=== PATIENT | female | born 1945 | race Caucasian/White ===

== ENCOUNTER 2020-08-29 10:36 | Outpatient (NON) | payer MEDICARE, SELFPAY ==
[2020-08-29 23:29] LABS: SARS-CoV-2 RNA PCR Negative
== END 2020-08-29 10:37 ==
PROVIDERS: PCP Family Medicine; Visit Provider Physician Assistant
DX: R68.89 Other general symptoms and signs (principal); Z20.828 Contact with and (suspected) exposure to other viral communicable diseases
CPT/HCPCS: 87635; C9803; U0003

== ENCOUNTER 2020-11-17 08:15 | Outpatient (CLI) | payer MEDICARE, SELFPAY ==
--- NOTE | ~2020-11-17 | XR_ITS ---
EXAMINATION: XR chest 2V DATE: 11/17/2020 08:47 INDICATION: Essential hypertension, shortness of breath TECHNIQUE: AP and lateral views of the chest are obtained. COMPARISON: 01/27/2018 FINDINGS: Cardiomegaly is noted. There is a mild diffuse interstitial pattern. A small left pleural e ffusion is present. There are airspace opacities of the left lung base. No pneumothorax is identified . There is moderate thoracic spondylosis. IMPRESSION: 1. Cardiomegaly with mild pulmonary edema. 2. Small left pleural effusion. 3. Left basilar airspace opacities, consistent with atelectasis versus pneumonia. Reviewed, dictated and finalized at location A. ITUTIONAL AIDE IMPRESSION: 1. Cardiomegaly with mild pulmonary edema. 2. Small left pleural effusion. 3. Left basilar airspace opacities, consistent with atelectasis versus pneumoni a.
[2020-11-17 09:01] LABS: Basophils Absolute Auto 0.1 K/mm3 (0.0-0.1); Basophils Percent Auto 0.9 % (0.2-1.2); Eosinophils Absolute Auto 0.1 K/mm3 (0-0.3); Hematocrit 44.2 % (37.0-47.0); Hemoglobin 14.1 g/dL (12.0-15.0); Immature Granulocyte Absolute 0.04 K/mm3 (0.00-0.031); Immature Granulocyte Percent A 0.4 % (0-0.5); Lymphocytes Absolute Auto 1.01 K/mm3 (0.9-3.2); Lymphocytes Percent Auto 10.3 % (18.3-44.2); Mean Corpuscular HGB Conc 31.9 g/dl (32-36); Mean Corpuscular Hemoglobin 31.5 pg (26-34); Mean Corpuscular Volume 98.9 fl (80-100); Mean Platelet Volume 9.6 fl (7.4-10.4); Monocytes Absolute Auto 0.6 K/mm3 (0.1-0.6); Monocytes Percent Auto 6.5 % (2.6-8.5); Neutrophils Absolute Auto 7.9 K/mm3 (1.3-6.7); Neutrophils Percent Auto 80.9 % (45.5-73.1); Platelet Count Result 461 k/mm3 (150-375); Red Blood Count 4.47 M/mm3 (4.2-5.4); Red Cell Distribution Width 16.8 % (11.5-14.5); White Blood Count 9.8 K/mm3 (4.5-10.0)
[2020-11-17 09:14] LABS: Hemoglobin A1C 7.3 % (<5.7)
[2020-11-17 09:19] LABS: Alanine Aminotransferase 20 U/L (4-35); Albumin Level 3.7 g/dL (3.5-5.1); Alkaline Phosphatase 134 U/L (38-126); Anion Gap 5 mmol/L (8-16); Aspartate Amino Transferase 29 U/L (14-36); Bilirubin,Total 0.8 mg/dL (0.2-1.3); Blood Urea Nitrogen 18 mg/dL (7-17); Calcium 9.5 mg/dL (8.4-10.2); Carbon Dioxide 34 mmol/L (22-30); Chloride 104 mmol/L (98-107); Cholesterol 178 mg/dL (0-200); Estimated Glomerular Filt Rate > 60; Glucose 165 mg/dL (65-105); HDL Direct 65 mg/dL; Sodium 143 mmol/L (137-145); Triglycerides 120 mg/dL (<150)
[2020-11-17 09:45] LABS: LDL Cholesterol Direct 88 mg/dL; NT Pro B Type Natriuretic Pept 4900 PG/ML (5-100)
== END 2020-11-17 08:16 | disposition home or self-care (01) ==
PROVIDERS: PCP Family Medicine; Visit Provider Nurse Practitioner Family
DX: E78.5 Hyperlipidemia, unspecified (principal); R06.02 Shortness of breath; E11.9 Type 2 diabetes mellitus without complications; I48.19 Other persistent atrial fibrillation; N39.0 Urinary tract infection, site not specified; E78.2 Mixed hyperlipidemia; R05 Cough; I50.9 Heart failure, unspecified; Z00.00 Encounter for general adult medical examination without abnormal findings; I11.0 Hypertensive heart disease with heart failure; J90 Pleural effusion, not elsewhere classified; J81.1 Chronic pulmonary edema; M47.814 Spondylosis without myelopathy or radiculopathy, thoracic region
CPT/HCPCS: 36415; 71046; 80053; 80061; 83036; 83880; 84443; 85025; 87086

== ENCOUNTER 2020-11-23 14:34 | Outpatient (CLI) | payer MEDICARE, SELFPAY ==
[2020-11-23 15:38] LABS: Alanine Aminotransferase 20 U/L (4-35); Albumin Level 3.6 g/dL (3.5-5.1); Alkaline Phosphatase 123 U/L (38-126); Anion Gap 5 mmol/L (8-16); Aspartate Amino Transferase 35 U/L (14-36); Bilirubin,Total 0.6 mg/dL (0.2-1.3); Blood Urea Nitrogen 30 mg/dL (7-17); Calcium 9.1 mg/dL (8.4-10.2); Carbon Dioxide 37 mmol/L (22-30); Chloride 101 mmol/L (98-107); Estimated Glomerular Filt Rate 54; Glucose 151 mg/dL (65-105); Potassium 4.3 mmol/L (3.4-5.0); Sodium 143 mmol/L (137-145)
[2020-11-23 15:42] LABS: NT Pro B Type Natriuretic Pept 5520 PG/ML (5-100)
== END 2020-11-23 14:35 | disposition home or self-care (01) ==
PROVIDERS: PCP Family Medicine; Visit Provider Nurse Practitioner Family
DX: E78.5 Hyperlipidemia, unspecified (principal); I10 Essential (primary) hypertension; I50.9 Heart failure, unspecified
CPT/HCPCS: 36415; 80053; 83880

== ENCOUNTER 2020-12-13 16:34 | Outpatient (CLI) | payer MEDICARE, SELFPAY ==
[2020-12-13 17:28] LABS: Hematocrit 42.3 % (37.0-47.0); Hemoglobin 13.3 g/dL (12.0-15.0); Mean Corpuscular HGB Conc 31.4 g/dl (32-36); Mean Corpuscular Hemoglobin 30.6 pg (26-34); Mean Corpuscular Volume 97.5 fl (80-100); Mean Platelet Volume 9.5 fl (7.4-10.4); Platelet Count Result 309 k/mm3 (150-375); Red Blood Count 4.34 M/mm3 (4.2-5.4); Red Cell Distribution Width 15.1 % (11.5-14.5); White Blood Count 9.3 K/mm3 (4.5-10.0)
[2020-12-13 17:49] LABS: Blood Urea Nitrogen 24 mg/dL (7-17); Calcium 9.3 mg/dL (8.4-10.2); Carbon Dioxide > 40 mmol/L (22-30); Chloride 100 mmol/L (98-107); Estimated Glomerular Filt Rate 54; Glucose 104 mg/dL (65-105); Potassium 3.5 mmol/L (3.4-5.0); Sodium 143 mmol/L (137-145)
== END 2020-12-13 16:35 | disposition home or self-care (01) ==
LOC: ANHLAB 16:36
PROVIDERS: PCP Family Medicine; Visit Provider Internal Medicine Cardiovascular Disease
DX: I50.31 Acute diastolic (congestive) heart failure (principal); Z51.81 Encounter for therapeutic drug level monitoring; Z79.01 Long term (current) use of anticoagulants; I48.0 Paroxysmal atrial fibrillation
CPT/HCPCS: 36415; 80048; 85027

== ENCOUNTER 2021-04-05 08:25 | Outpatient (CLI) | payer MEDICARE, SELFPAY ==
[2021-04-05 08:54] LABS: Basophils Absolute Auto 0.1 K/mm3 (0.0-0.1); Basophils Percent Auto 0.8 % (0.2-1.2); Eosinophils Absolute Auto 0.2 K/mm3 (0-0.3); Eosinophils Percent Auto 2.2 % (0-4.4); Hematocrit 43.1 % (37.0-47.0); Hemoglobin 13.6 g/dL (12.0-15.0); Immature Granulocyte Absolute 0.03 K/mm3 (0.00-0.031); Immature Granulocyte Percent A 0.3 % (0-0.5); Lymphocytes Percent Auto 13.5 % (18.3-44.2); Mean Corpuscular HGB Conc 31.6 g/dl (32-36); Mean Corpuscular Hemoglobin 31.3 pg (26-34); Mean Corpuscular Volume 99.3 fl (80-100); Mean Platelet Volume 9.5 fl (7.4-10.4); Monocytes Absolute Auto 0.6 K/mm3 (0.1-0.6); Monocytes Percent Auto 6.4 % (2.6-8.5); Neutrophils Absolute Auto 6.8 K/mm3 (1.3-6.7); Neutrophils Percent Auto 76.8 % (45.5-73.1); Platelet Count Result 337 k/mm3 (150-375); Red Blood Count 4.34 M/mm3 (4.2-5.4); Red Cell Distribution Width 16.2 % (11.5-14.5); White Blood Count 8.9 K/mm3 (4.5-10.0)
[2021-04-05 09:10] LABS: Alanine Aminotransferase 17 U/L (4-35); Albumin Level 3.7 g/dL (3.5-5.1); Alkaline Phosphatase 139 U/L (38-126); Anion Gap 8 mmol/L (8-16); Aspartate Amino Transferase 27 U/L (14-36); Bilirubin,Total 0.9 mg/dL (0.2-1.3); Blood Urea Nitrogen 21 mg/dL (7-17); Calcium 9.9 mg/dL (8.4-10.2); Carbon Dioxide 35 mmol/L (22-30); Chloride 101 mmol/L (98-107); Estimated Glomerular Filt Rate > 60; Glucose 146 mg/dL (65-110); Potassium 3.8 mmol/L (3.4-5.0); Sodium 144 mmol/L (137-145)
[2021-04-05 09:13] LABS: Hemoglobin A1C 7.7 % (<5.7)
== END 2021-04-05 08:26 | disposition home or self-care (01) ==
LOC: ANHLAB 08:27
PROVIDERS: PCP Family Medicine; Visit Provider Nurse Practitioner Family
DX: E78.5 Hyperlipidemia, unspecified (principal); I10 Essential (primary) hypertension; E11.9 Type 2 diabetes mellitus without complications
CPT/HCPCS: 36415; 80053; 83036; 85025

== ENCOUNTER 2021-05-13 19:43 | Emergency (ER) | payer MEDICARE, SELFPAY ==
[2021-05-13 19:44] VITALS: BP 153/67; PULSE 88; RESP 18; TEMP 36.4; O2SAT 98
--- NOTE | 2021-05-13 21:21 | ED.EAR ---
HPI - Ear Problem General Chief complaint: Ear <Siena Gonzalez PA-C - Last Filed: 05/13/21 21:38> Stated complaint: bleeding from left ear <Siena Gonzalez PA-C - Last Filed: 05/13/21 21:38> Time Seen by Provider: 05/13/21 20:15 <Siena Gonzalez PA-C - Last Filed: 05/13/21 21:38> Source: patient <Siena Gonzalez PA-C - Last Filed: 05/13/21 21:38> Mode of arrival: ambulatory <Siena Gonzalez PA-C - Last Filed: 05/13/21 21:38> Limitations: no limitations <Siena Gonzalez PA-C - Last Filed: 05/13/21 21:38> History of Present Illness HPI Narrative: This is a 75 year old female that present to the ER for bleeding from the right ear canal over the last couple of hours. Reports she felt like something popped in her ear then she noted some bleeding. They could not get it to stop at home which prompted her to be seen. She is on Xarelto for Afib. Denies any injuries to the ear. <Siena Gonzalez PA-C - Last Filed: 05/13/21 21:38> Related Data Allergies/adverse reactions: Allergies Allergy/AdvReac Type Severity Reaction Status Date / Time No Known Allergies Allergy Unverified 04/12/21 13:11 <Siena Gonzalez PA-C - Last Filed: 05/13/21 21:38> Review of Systems Review of Systems: CONSTITUTIONAL: Denies fever ENT: Denies otalgia. <Siena Gonzalez PA-C - Last Filed: 05/13/21 21:38> All systems reviewed & are unremarkable except as noted in HPI and below <Siena Gonzalez PA-C - Last Filed: 05/13/21 21:38> [facility] Past Medical History Medical History: Medical History (Updated 05/13/21 @ 21:38 by Siena Gonzalez PA-C) Atrial fibrillation, persistent Cognitive decline Congestive heart failure Essential (primary) hypertension HLD (hyperlipidemia) Memory loss Skin Lesion Type 2 diabetes mellitus without complication, without long-term current use of insulin <Siena Gonzalez PA-C - Last Filed: 05/13/21 21:38> Family History Family History: Family History Mother Hypertension Father Family history of cardiovascular disease <Siena Gonzalez PA-C - Last Filed: 05/13/21 21:38> Social History Social History: Social History Smoking packs per day: 0.5 Smoking cigarettes per day: 10.0 Years smoked: 20 Smoking pack-years: 10.00 Smoking status: Former smoker Tobacco type: cigarettes Second hand tobacco smoke exposure: No Smoking end date: 09/08/88 Alcohol intake: never Substance use: never Substance use type: does not use Gender identity (if verbalized by the patient): Female <Siena Gonzalez PA-C - Last Filed: 05/13/21 21:38> Exam Narrative: GENERAL: Well-appearing, well-nourished, and in no acute distress. HEAD: Normocephalic, atraumatic. EYES: EOMI. ENT: Bilateral TMs pearly zhong, non-bulging. Right external auditory canal with slow oozing from an area of superficial skin breakdown EXTREMITIES: Normal range of motion. No edema. SKIN: Warm, dry, no rash. NEURO: No focal deficits. Alert and oriented x3. PSYCH: Normal mood and affect <Siena Gonzalez PA-C - Last Filed: 05/13/21 21:38> Course WARP DYEING VAT TENDER/PA Physician Supervision For this encounter, I have reviewed the PA documentation, treatment plan and medical decision making: And I have had [id number] time with the patient. On exam the right ear canal has an area of continuous wheezes notes oozing in approximately the 1 o'clock position patient had used a Q-tip just prior to this occurring and is on Xarelto we had discussed with Dr. Quick for ENT recommend Afrin cotton swabs be placed in the patient may be discharged as he is with follow-up as an outpatient to help control the bleeding and recommend against using silver nitrate <DO Mustapha Echeverria Filed: 05/13/21 21:51> Vital Signs Vital signs: Vital Signs Temperature 97.6 F 05/13/21
[2021-05-13] MEDS: SILVER NITRATE (*SP) STICK 8 EACH (21:26)
[2021-05-13] MEDS: SILVER NITRATE (*SP) STICK 2 EACH (21:26)
[2021-05-13] MEDS: OXYMETAZOLINE HCL 0.05% NAS 15 ML BTL (*BKC) 1 SPRAY NASAL (21:26)
[2021-05-13 22:10] VITALS: BP 144/74; PULSE 80; RESP 18; O2SAT 99
== END 2021-05-13 22:12 | disposition home or self-care (01) ==
PROVIDERS: Emergency Provider Emergency Medicine; PCP Family Medicine
DX: H92.21 Otorrhagia, right ear (principal); I48.19 Other persistent atrial fibrillation; Z79.01 Long term (current) use of anticoagulants; I50.9 Heart failure, unspecified; I11.0 Hypertensive heart disease with heart failure; E78.5 Hyperlipidemia, unspecified; E11.9 Type 2 diabetes mellitus without complications; Z87.891 Personal history of nicotine dependence
CPT/HCPCS: 99283; A9270

== ENCOUNTER 2021-11-10 07:29 | Inpatient (IN) | payer MEDICARE, SELFPAY ==
[2021-11-10] VITALS (11 sets, daily range): BP systolic 97–116; BP diastolic 53–66; PULSE 81–118; RESP 16–32; TEMP 35.7–38.6; O2SAT 93–99; BMI 34.3
--- NOTE | ~2021-11-10 | US_ITS ---
EXAMINATION: US venous doppler [facility] DATE: 11/11/2021 10:51 INDICATION: Right lower limb swelling. TECHNIQUE: Grayscale ultrasound images without and with compression and Doppler ultrasound images of the bilateral lower extremity veins were obtained. Reflux testing was performed in a stretcher in rev erse Trendelenburg. COMPARISON: None. FINDINGS: The visualized portions of right common femoral vein, profunda (deep) femoral vein, femoral vein, pop liteal vein, peroneal veins, posterior tibial veins, and greater saphenous vein are patent. Greater s aphenous vein measures 7 mm in the upper thigh, 4 mm in the lower thigh, and 4 mm in the lower leg. S mall saphenous vein measures 5 mm below the knee and 4 mm in the distal lower leg. No reflux. The visualized portions of left common femoral vein, profunda femoral vein, femoral vein, popliteal v ein, peroneal veins, posterior tibial veins, and greater saphenous vein outflow are patent. Greater s aphenous vein measures 8 mm in the upper thigh, 5 mm in the lower thigh, and 3 mm in the lower leg. S mall saphenous vein measures 5 mm below the knee and 2 mm in the distal lower leg. No reflux. IMPRESSION: 1. No deep venous thrombosis. 2. No reflux. Reviewed, dictated and finalized at location A. LEMAKER
--- NOTE | ~2021-11-10 | US_ITS ---
EXAMINATION: US arterial ankle brachial ind DATE: 11/11/2021 10:50 INDICATION: Right lower leg ulcer. TECHNIQUE: Segmental pressures and plethysmographic and Doppler waveforms of the brachial and lower e xtremity arteries were obtained. COMPARISON: None. FINDINGS: Right and left brachial artery pressures of 109 mm Hg and 109 mm Hg, respectively, are concordant (no rmal difference <= 30 mmHg). The right ankle-brachial index (VIVIEN) is 1.45 (normal >= 0.9-1.0). The right great toe-brachial index (TBI) is 1.02 (normal >= 0.65). Arterial Doppler waveforms are at least biphasic at the ankle. The left VIVIEN could not be measured due to inability to cuff occlude the arteries. The left TBI is 1.0 6. Arterial Doppler waveforms are biphasic at the ankle. IMPRESSION: 1. No significant arterial occlusive disease. Reviewed, dictated and finalized at location A. EQUIPMENT INSPECTOR
--- NOTE | ~2021-11-10 | CT_ITS ---
EXAMINATION: CT brain wo con DATE: 11/10/2021 09:04 INDICATION: Confusion. Weakness. TECHNIQUE: Computed tomography (CT) of the head was performed without intravenous contrast. The mA wa s adjusted according to patient size. Iterative reconstruction technique was employed. The dose-lengt h product was 681.00 mGy-cm. COMPARISON: Head CT 02/18/2017 FINDINGS: There are scattered areas of low attenuation in the cerebral white matter. There is a lacun ar infarct in left thalamus. There is an old lacunar infarct in the left lentiform nucleus. There is no intracranial hemorrhage or abnormal mass lesion. The ventricles are normal in size. There is mild mucosal thickening in the ethmoid sinuses. There are likely changes of ocular lens replacement surger ies. The mastoid air cells are normal. IMPRESSION: 1. Age-indeterminate lacunar infarct in left thalamus, new from 02/18/2017. 2. Old lacunar infarct in the left lentiform nucleus. 3. Worsened moderate nonspecific cerebral white matter disease, which likely represents chronic small vessel ischemic disease. Reviewed, dictated and finalized at location A. ARCH LABORATORY TECHNICIAN IMPRESSION: 1. Age-indeterminate lacunar infarct in left thalamus, new from 02/18/2017. 2. Old lacunar infarct in the left lentiform nucleus. 3. Worsened moderate nonspecific cerebral white matter disease, which likely re presents chronic small vessel ischemic disease.
--- NOTE | ~2021-11-10 | XR_ITS ---
EXAMINATION: XR tibia fibula RT 2V DATE: 11/10/2021 08:27 INDICATION: Right lower leg swelling. TECHNIQUE: 2 views of right tibia and fibula were obtained. COMPARISON: None. FINDINGS: Bone alignment is normal. No fracture. There is mild osteoarthritis of the ankle joint and moderate to severe osteoarthritis of the knee joint. IMPRESSION: 1. Polyarticular osteoarthritis. Reviewed, dictated and finalized at location A. RETE BUCKET HOOKER
--- NOTE | ~2021-11-10 | XR_ITS ---
EXAMINATION: XR chest 1V portable DATE: 11/10/2021 08:26 INDICATION: Fever. TECHNIQUE: A single frontal view of the chest was obtained. COMPARISON: Chest 2 views 11/17/2020 FINDINGS: There is a small left pleural effusion. There are airspace opacities at left lung base. No pneumothorax. Cardiomegaly is noted. There are prominent paracardial fat pads. IMPRESSION: 1. Stable small left pleural effusion. 2. Stable airspace opacities in left lung base, consistent with atelectasis versus pneumonia. 3. Cardiomegaly. Reviewed, dictated and finalized at location A. PRACTITIONER IMPRESSION: 1. Stable small left pleural effusion. 2. Stable airspace opacities in left lung base, consistent with atelectasis keegan selene pneumonia. 3. Cardiomegaly.
--- NOTE | 2021-11-10 07:38 | ECG_ITS ---
Measurements Intervals [place] Rate: 94 P: WV: 0 QRS: 83 QRSD: 145 T: 18 QT: 380 QTc: 476 Interpretive Statements ATRIAL FIBRILLATION RIGHT BUNDLE BRANCH BLOCK [120+ ms QRS DURATION, UPRIGHT V1, 40+ ms S IN I/aVL/V4/V5/V6] ST DEVIATION AND MODERATE T-WAVE ABNORMALITY, CONSIDER ANTERIOR ISCHEMIA [-0.1+ mV T- WAVE IN V3/V4] ABNORMAL ECG NO PREVIOUS ECG AVAILABLE FOR COMPARISON Electronically Signed On 11-10-2021 14:30:41 AGENCY SALES MANAGEMENT ASSISTANT by Aung Novak M.D.
--- NOTE | 2021-11-10 07:41 | ED.AMS ---
HPI - Altered Mental Status General Chief Complaint: Altered Mental Status Stated Complaint: Confusion, fever, unable to walk Source: patient, EMS, RN notes reviewed and old records reviewed Mode of arrival: EMS Limitations: dementia History of Present Illness HPI narrative: This is a 76 year old female with history of dementia, hypertension, atrial fibrillation, chronic anticoagulation who presents via EMS for evaluation of confusion and weakness. Patient is unable to state why she is here. EMS reports patient was found oriented to person and she was unable to get out bed. They also found patient had fever of 101 F and she has chronic atrial fibrillation. Patient denies headache, chest pain, shortness of breath, nausea, vomiting, weakness , or cough. She has wound to right lower leg, and nursing staff reports patient scratched her leg in August. She denies any pain to her right leg although there is redness around her wound. She denies any recent falls. Related Data Home Medications Medication Instructions Recorded Confirmed artificial tears solution 2 drp OPHTHALMIC (EYE) DAILY 11/10/21 11/10/21 galantamine 8 mg PO QAM 11/10/21 11/10/21 ofloxacin 1 drp LEFT EYE QID 11/10/21 11/10/21 polymyxin B sulf-trimethoprim 1 drp OPHTHALMIC (EYE) QID 11/10/21 11/10/21 rivaroxaban [Xarelto] 15 mg PO DAILY 11/10/21 11/10/21 valacyclovir [Valtrex] 1,000 mg PO DAILY 11/10/21 11/10/21 Allergies Allergy/AdvReac Type Severity Reaction Status Date / Time No Known Allergies Allergy Unverified 08/16/21 13:00 Review of Systems Review of Systems: All systems reviewed & are unremarkable except as noted in HPI and below Constitutional: Constitutional: Reports chills, Reports fever(s) and Reports weakness Cardiovascular: Cardiovascular: Denies chest pain Respiratory: Respiratory: Denies cough, Denies dyspnea and Denies wheezing Gastrointestinal: Gastrointestinal: Denies abdominal pain, Denies nausea and Denies vomiting [facility] Past Medical History Medical History (Updated 11/10/21 @ 17:46 by Tara Randolph MD) Cognitive decline Congestive heart failure Current use of halfway anticoagulation Essential (primary) hypertension Gout Hyperlipidemia Mild intermittent asthma without complication Persistent atrial fibrillation Type 2 diabetes mellitus without complication, without long-term current use of insulin Surgical History Surgical History (Updated 11/10/21 @ 14:43 by Yessenia Prieto PA-C) History of cataract extraction History of colonoscopy with polypectomy History of gastric bypass History of hysterectomy History of tonsillectomy Family History Family History Mother Hypertension Father Family history of cardiovascular disease Social History Social History Smoking packs per day: 0.5 Smoking cigarettes per day: 10.0 Years smoked: 20 Smoking pack-years: 10.00 Smoking status: Former smoker Tobacco type: cigarettes Second hand tobacco smoke exposure: No Smoking end date: 09/08/88 Alcohol intake: never Substance use: never Substance use type: does not use Gender identity (if verbalized by the patient): Female Spiritual care concerns: No Exam Const: General: alert and ill appearing Other: oriented to person and place, when asked age she stated her date of HENMT: Head: normocephalic and atraumatic Face and sinus: face symmetric Mouth: Yes Normal oral and palatal mucosa present, Yes lip normal, Yes oropharynx normal and Yes moist mucous membranes Eyes: Other: left eye with suture is left with redness and injection from recent surgery Resp: Effort & Inspection: not labored, tachypneic and no use of accessory muscles Auscultation: clear to auscultation bilaterally, no crackles, no rales, no rhonchi and no wheezes Cardio: Rate: tachycardic Rhythm: abn
[2021-11-10 08:02] LABS: Base Excess ABG 4.7 mEq/l (+/-2.0); Fractional Inspired Oxygen 21 %; HCO3 ABG 27.9 mEq/l (22.0-26.0); Oxygen Content ABG 16.9 %vol (16.0-22.0); Oxygen Saturation ABG 90.9 % (95.0-100.0); PO2 ABG 54.4 mmHg (80.0-100.0); PO2 FiO2 Ratio Arterial Blood 2.59 %; Reduced Hemoglobin 11.1 %THb (0-5.0); Total Hemoglobin 13.7 g/dL (12.0-18.0); pH ABG 7.496 (7.350-7.450)
[2021-11-10 08:04] LABS: Device ROOM AIR; Modified Allen's Test Pass; Oxyhemoglobin 87.9 % THb (90.0-100.0); Site Drawn LEFT RADIAL
[2021-11-10 08:12] LABS: Basophils Absolute Auto 0.1 K/mm3 (0.0-0.1); Basophils Percent Auto 0.3 % (0.2-1.2); Eosinophils Absolute Auto 0.1 K/mm3 (0-0.3); Eosinophils Percent Auto 0.5 % (0-4.4); Hematocrit 42.2 % (37.0-47.0); Hemoglobin 13.4 g/dL (12.0-15.0); Immature Granulocyte Absolute 0.11 K/mm3 (0.00-0.031); Immature Granulocyte Percent A 0.6 % (0-0.5); Lymphocytes Absolute Auto 0.42 K/mm3 (0.9-3.2); Lymphocytes Percent Auto 2.4 % (18.3-44.2); Mean Corpuscular HGB Conc 31.8 g/dl (32-36); Mean Corpuscular Hemoglobin 31.4 pg (26-34); Mean Corpuscular Volume 98.8 fl (80-100); Mean Platelet Volume 10.1 fl (7.4-10.4); Monocytes Absolute Auto 0.7 K/mm3 (0.1-0.6); Neutrophils Absolute Auto 16.5 K/mm3 (1.3-6.7); Neutrophils Percent Auto 92.2 % (45.5-73.1); Platelet Count Result 219 k/mm3 (150-375); Red Blood Count 4.27 M/mm3 (4.2-5.4); Red Cell Distribution Width 15.6 % (11.5-14.5); White Blood Count 17.9 K/mm3 (4.5-10.0)
[2021-11-10] MEDS: SODIUM CHLORIDE 0.9% IV 500 ML 999 ML IV CONT (08:15)
[2021-11-10 08:16] LABS: Lactic Acid Reflex 2.8 mmol/L (0.7-2.1)
[2021-11-10 08:22] LABS: Alanine Aminotransferase 19 U/L (4-35); Alkaline Phosphatase 144 U/L (38-126); Anion Gap 11 mmol/L (8-16); Aspartate Amino Transferase 37 U/L (14-36); Bilirubin,Total 1.1 mg/dL (0.2-1.3); Blood Urea Nitrogen 26 mg/dL (7-17); Calcium 9.3 mg/dL (8.4-10.2); Carbon Dioxide 30 mmol/L (22-30); Chloride 94 mmol/L (98-107); Estimated CRCL calculation 46 ml/min; Estimated Glomerular Filt Rate 44; Glucose 214 mg/dL (65-110); Potassium 3.6 mmol/L (3.4-5.0); Sodium 135 mmol/L (137-145)
[2021-11-10 08:23] LABS: INR 2.1; Prothrombin Time 23.2 Seconds (11.1-14.7)
[2021-11-10 08:24] LABS: Partial Thromboplastin Time 36.8 SECONDS (22.3-36.8)
[2021-11-10 08:29] LABS: Troponin I 0.034 ng/mL (0.000-0.034)
[2021-11-10 08:31] LABS: CRP 24.1 mg/dL (<1.0)
[2021-11-10 08:37] LABS: Add Urine Microscopic? YES; Appearance Urine Cloudy (Clear); Bacteria Urine 4+ /hpf; Bilirubin Urine Negative (Negative); Blood Urine 2+ (Negative); Color Urine Yellow (Yellow); Glucose Urine UA Negative (Negative); Ketones Urine Negative (Negative); Leukocyte Esterase Ur 3+ LEU/UL (Negative); Mucus Urine Rare /lpf; Nitrate Urine Positive (Negative); Protein Urine Negative (Negative); Specific Grav Ur 1.012 (1.001-1.035); Urobilinogen Urine Negative mg/dL (<2.0); WBC Clumps Urine Present /HPF; WBC Urine >75 /hpf
[2021-11-10 08:56] LABS: Ammonia < 9 umol/L (9-30)
[2021-11-10 09:14] LABS: SARS-CoV-2 RNA PCR Negative
[2021-11-10] MEDS: SODIUM CHLORIDE 0.9% IV 1,000 ML 999 ML IV CONT (09:19)
--- NOTE | 2021-11-10 11:00 | ADMGEN ---
This patient, Dodie Duong, was admitted to IMU Room 205-01 at 1058. Patient/family oriented to hospital policies and general routines including ID bracelet, bed and alarms, visiting hours, pain management, procedures, bathroom and other care routines, personal items, smoking policy, room service/diet, and visiting hours. Information on how to activate the Rapid Response Team has been discussed. Patient/Family are encouraged to report perceived risks to care and to ask questions if they do not understand what they are told or what they should do.
[2021-11-10 11:05] LABS: Reflex Lactic Acid Yes or No Add Lactic
[2021-11-10 11:39] LABS: Lactic Acid 1.5 mmol/L (0.7-2.1)
[2021-11-10 11:50] LABS: Glucose Point of Care 210 mg/dl (65-105)
--- NOTE | 2021-11-10 13:13 | PHAR ---
HOME MEDICATION VERIFIED BY PHARMACY: BUMANATE 5% EYE DROPS INSTILL ONE DROP IN THE LEFT EYE EVERY 3 HOURS WHILE AWAKE [id number]
--- NOTE | 2021-11-10 13:45 | PM.IMHP ---
H&P: HPI History of Present Illness Date/Time: 11/10/21 13:45 Chief Complaint: Weak and confused. Narrative: This is a 76-year-old female with persistent atrial fibrillation on chronic anticoagulation, congestive heart failure, hypertension, hyperlipidemia, type 2 diabetes mellitus, and cognitive decline who presented to the emergency department today via EMS from home for evaluation of weakness and confusion. She is alert and oriented at the time my evaluation though she seems to suffer from short-term memory loss and as such some of the following is obtained via a review of her electronic medical records. She tells me she has not been feeling well ?for a day or so because of a urinary tract infection.? It is my understanding that she was brought to the ER today because she was so weak that she could not get herself out of bed this morning and she was much more confused than her baseline. With prompting she does admit to dysuria, urinary urgency, and frequency and indeed her urine looks infected. Additionally she has swelling and redness of the right lower leg, surrounding a dry eschar which she states has been present since a fall several months ago. It sounds as though the pain and redness are a newer finding. On arrival to the emergency department she was found to have a temperature of 101.5? and she is being admitted in this setting. Currently she is eating a lunch tray and reports feeling somewhat better. She has no current complaints. Review of Systems Review of Systems: Twelve systems were reviewed. I am not certain how accurate her responses are given her memory loss. She does complain of a mild generalized headache at this time. No neck pain or stiffness. She denies sinus congestion, rhinorrhea, otalgia, and odynophagia. She has had a mild cough which is not productive. No chest pain or pleuritic pain. She denies nausea and vomiting but reports a decrease in appetite. No diarrhea. Except as documented, all other systems were reviewed and are negative. [facility] Past Medical History Medical History (Updated 11/10/21 @ 20:28 by Yessenia Prieto PA-C) Cognitive decline Congestive heart failure Current use of intermediate frame tender anticoagulation Essential (primary) hypertension Gout Hyperlipidemia Mild intermittent asthma without complication Persistent atrial fibrillation Type 2 diabetes mellitus without complication, without long-term current use of insulin Surgical History Surgical History (Updated 11/10/21 @ 14:43 by Yessenia Prieto PA-C) History of cataract extraction History of colonoscopy with polypectomy History of gastric bypass History of hysterectomy History of tonsillectomy Family History Family History Mother Hypertension Father Family history of cardiovascular disease Social History Social History (Updated 11/10/21 @ 20:17 by Yessenia Prieto PA-C) Social History: Surrogate decision maker: Veronica Patel, daughter. Code status: Full code. Smoking packs per day: 0.5 Smoking cigarettes per day: 10.0 Years smoked: 20 Smoking pack-years: 10.00 Smoking status: Former smoker Tobacco type: cigarettes Second hand tobacco smoke exposure: No Smoking end date: 09/08/88 Alcohol intake: never Substance use: never Substance use type: does not use Meds Home Medications and Allergies Home Medications Medication Instructions Recorded Confirmed Type albuterol sulfate 90 mcg/actuation 1 inh INHALATION Q4H PRN #8.5 gm 07/07/20 11/10/21 Rx aerosol inhaler fluticasone furoate 100 1 inh INHALATION DAILY #180 each 12/07/20 11/10/21 Rx mcg-vilanterol 25 mcg/dose inhalation powder torsemide 20 mg tablet 40 mg PO QAM #90 tablet 12/07/20 11/10/21 Rx allopurinol 300 mg tablet 300 mg PO DAILY #90 tablet 05/03/21 11/10/21 Rx atorvastatin 40 mg tablet 40 mg PO DAILY #90 tablet 07/09/21 11/10/21 Rx bupropion HCl 300 mg 24 hr tablet, 300 m
[2021-11-10 16:55] LABS: Glucose Point of Care 237 mg/dl (65-105)
[2021-11-10] MEDS: SODIUM CHLORIDE 0.9% IV 1,000 ML 125 ML IV CONT (19:12)
[2021-11-10] MEDS: ACETAMINOPHEN 325 MG TABLET 650 MG PO (20:09)
[2021-11-10 20:14] LABS: Glucose Point of Care 141 mg/dl (65-105)
[2021-11-10 21:10] LABS: Hemoglobin A1C 7.2 % (<5.7)
[2021-11-10] MEDS: POLYMYXIN/TRIMETHOPRIM OPHTH 10 ML DROPS 1 DROP EACH EYE (21:46)
[2021-11-10] MEDS: OFLOXACIN 0.3% OPHTH SOLN 5 ML BTL 1 DROP LEFT EYE (21:46)
[2021-11-11] VITALS (17 sets, daily range): BP systolic 91–124; BP diastolic 45–76; PULSE 74–122; RESP 18–22; TEMP 35.6–36.7; O2SAT 92–98
[2021-11-11 04:31] LABS: Basophils Absolute Auto 0.1 K/mm3 (0.0-0.1); Basophils Percent Auto 0.4 % (0.2-1.2); Eosinophils Percent Auto 0.2 % (0-4.4); Hematocrit 36.7 % (37.0-47.0); Hemoglobin 11.5 g/dL (12.0-15.0); Immature Granulocyte Absolute 0.05 K/mm3 (0.00-0.031); Immature Granulocyte Percent A 0.4 % (0-0.5); Lymphocytes Absolute Auto 1.13 K/mm3 (0.9-3.2); Lymphocytes Percent Auto 8.7 % (18.3-44.2); Mean Corpuscular HGB Conc 31.3 g/dl (32-36); Mean Corpuscular Hemoglobin 31.1 pg (26-34); Mean Corpuscular Volume 99.2 fl (80-100); Mean Platelet Volume 9.9 fl (7.4-10.4); Monocytes Absolute Auto 1.1 K/mm3 (0.1-0.6); Monocytes Percent Auto 8.5 % (2.6-8.5); Neutrophils Absolute Auto 10.6 K/mm3 (1.3-6.7); Neutrophils Percent Auto 81.8 % (45.5-73.1); Platelet Count Result 170 k/mm3 (150-375); Red Cell Distribution Width 15.5 % (11.5-14.5)
[2021-11-11 04:49] LABS: Alanine Aminotransferase 18 U/L (4-35); Alkaline Phosphatase 108 U/L (38-126); Anion Gap 7 mmol/L (8-16); Aspartate Amino Transferase 43 U/L (14-36); Bilirubin,Total 0.6 mg/dL (0.2-1.3); Blood Urea Nitrogen 27 mg/dL (7-17); Calcium 8.8 mg/dL (8.4-10.2); Carbon Dioxide 28 mmol/L (22-30); Chloride 102 mmol/L (98-107); Creatine Kinase 299 U/L (30-135); Estimated CRCL calculation 50 ml/min; Estimated Glomerular Filt Rate 48; Glucose 150 mg/dL (65-110); Magnesium 1.6 mg/dL (1.6-2.3); Potassium 3.2 mmol/L (3.4-5.0); Sodium 137 mmol/L (137-145)
[2021-11-11 08:19] LABS: Glucose Point of Care 161 mg/dl (65-105)
[2021-11-11] MEDS: ACETAMINOPHEN 325 MG TABLET 650 MG PO (08:48)
[2021-11-11] MEDS: SODIUM CHLORIDE 0.9% IV 1,000 ML 75 ML IV CONT (08:49)
[2021-11-11] MEDS: POLYMYXIN/TRIMETHOPRIM OPHTH 10 ML DROPS 1 DROP EACH EYE ×4 (08:52→21:12)
[2021-11-11] MEDS: OFLOXACIN 0.3% OPHTH SOLN 5 ML BTL 1 DROP LEFT EYE ×4 (08:52→21:16)
[2021-11-11] MEDS: buPROPion HCL XL (24 HR) 150 MG TABCR 300 MG PO (08:53)
[2021-11-11] MEDS: MEMANTINE 10 MG TABLET PO ×2 (08:53→17:03)
[2021-11-11] MEDS: ATORVASTATIN 40 MG TABLET PO (08:53)
[2021-11-11] MEDS: METOPROLOL SUCCINATE EXT REL 50 MG TABCR PO (08:53)
[2021-11-11] MEDS: allopurinoL 300 MG TABLET PO (08:53)
[2021-11-11] MEDS: valACYclovir HCL 500 MG TABLET 1000 MG PO (08:53)
[2021-11-11] MEDS: RIVAROXABAN 15 MG TABLET PO (08:53)
[2021-11-11] MEDS: ARTIFICIAL TEARS OPHTH SOLN 15 ML BOTTLE 2 DROP EACH EYE (08:54)
[2021-11-11] MEDS: FLUTICASONE/SALMETEROL 115-21 MCG INHALER 1 PUFF 2 PUFF INHALATION ×2 (08:56→20:08)
--- NOTE | 2021-11-11 09:46 | PCRCNOTE ---
Nurse omitted 0900 DPI tx, pt not in room when RT entered
--- NOTE | 2021-11-11 10:22 | PM.IMPN ---
Progress Note: A&P Assessment and Plan (1) Sepsis: Code(s): A41.9 - Sepsis, unspecified organism Status: Acute Assessment and Plan: Present on admission and supported by fever, leukocytosis, and lactic acidosis in the setting of infection. SOFA score is 3. Her lactic acid level has normalized with IV fluid rehydration. Blood pressures have been on the low side of normal but are stable. Blood and urine cultures are pending. (2) Cellulitis of right leg: Code(s): L03.115 - Cellulitis of right lower limb Status: Acute Assessment and Plan: Continue imipenem and vancomycin per antibiotic stewardship recommendations. Concern for arterial and venous insufficiency. Patient has had the wound for greater than 3 months without healing. S patient's right lower extremity is swollen and dusky. No pedal pulses were able to be obtained upon exam. RN at bedside to grab Doppler pulses. Ordered ABIs and venous duplex with reflux. Patient may need to consult with vascular intervention and podiatry (3) Urinary tract infection: Code(s): N39.0 - Urinary tract infection, site not specified Status: Acute Assessment and Plan: Currently on broad-spectrum antibiotics as above. Urine culture pending. (4) Delirium: Code(s): R41.0 - Disorientation, unspecified Status: Acute Assessment and Plan: Related to sepsis and infection in a patient with underlying cognitive deficits. She seems to be near her baseline at this time. (5) Abnormal brain CT: Code(s): R90.89 - Other abnormal findings on diagnostic imaging of central nervous system Status: Acute Assessment and Plan: Age indeterminate lacunar infarction noted in the left thalamus which is new from imaging on 02/18/2017. I think her weakness and confusion today are more likely related to sepsis and infection however brain MRI may be prudent. Continue neurologic checks. (6) Generalized weakness: Code(s): R53.1 - Weakness Status: Acute Assessment and Plan: Related to a combination of the above. Should improve with treatment. (7) Acute kidney injury: Code(s): N17.9 - Acute kidney failure, unspecified Status: Acute Assessment and Plan: Avoid nephrotoxic agents. Discontinue IV fluids, patient's renal is back to baseline and she has good oral intake. (8) Type 2 diabetes mellitus with hyperglycemia: Code(s): E11.65 - Type 2 diabetes mellitus with hyperglycemia Status: Acute Assessment and Plan: Initiate sliding scale insulin, Accu-Cheks, and hypoglycemic protocol. Check hemoglobin A1c. (9) Persistent atrial fibrillation: Code(s): I48.19 - Other persistent atrial fibrillation Status: Acute Assessment and Plan: Rate controlled on metoprolol. Continue rivaroxaban for stroke prophylaxis. (10) Congestive heart failure: Qualifiers: Heart failure type: unspecified Heart failure chronicity: acute on chronic Qualified Code(s): I50.9 - Heart failure, unspecified Code(s): I50.9 - Heart failure, unspecified Status: Acute Assessment and Plan: Clinically compensated. Monitor volume status closely and avoid over-hydration. Subjective Date/time seen: 11/11/21 10:22 Patient is alert and oriented this morning. She did not. Be acutely altered. Discussed injury to right lower extremity. Patient reports that the injury took place in August of 2021. Wound is not healed. Ordered an VIVIEN and venous duplex with reflex for further evaluation. Blood cultures came back with Gram-positive cocci x2. Patient was placed on vancomycin and imipenem. IV fluids were discontinued due to history of CHF. Urine cultures pending. Patient denies any acute pain to the right lower extremity. However it is extremely swollen and dusky, unable to palpate pedal pulses. Asked RN to obtain Dopplers of bilateral l
[2021-11-11 12:39] LABS: Glucose Point of Care 171 mg/dl (65-105)
[2021-11-11 15:49] LABS: Glucose Point of Care 124 mg/dl (65-105)
[2021-11-11] MEDS: HYDROcodone/acetaminophen (*CRX) 5-325 MG TABLET 1 TAB PO ×2 (17:02→21:22)
[2021-11-11 19:58] LABS: Glucose Point of Care 197 mg/dl (65-105)
[2021-11-12] VITALS (18 sets, daily range): BP systolic 91–137; BP diastolic 49–80; PULSE 77–105; RESP 16–26; TEMP 35.9–36.9; O2SAT 93–96
[2021-11-12 04:38] LABS: Basophils Percent Auto 0.3 % (0.2-1.2); Eosinophils Absolute Auto 0.1 K/mm3 (0-0.3); Eosinophils Percent Auto 0.6 % (0-4.4); Hematocrit 39.2 % (37.0-47.0); Hemoglobin 11.8 g/dL (12.0-15.0); Immature Granulocyte Absolute 0.05 K/mm3 (0.00-0.031); Immature Granulocyte Percent A 0.4 % (0-0.5); Lymphocytes Absolute Auto 0.76 K/mm3 (0.9-3.2); Lymphocytes Percent Auto 5.8 % (18.3-44.2); Mean Corpuscular HGB Conc 30.1 g/dl (32-36); Mean Corpuscular Hemoglobin 31.1 pg (26-34); Mean Corpuscular Volume 103.2 fl (80-100); Mean Platelet Volume 10.2 fl (7.4-10.4); Monocytes Percent Auto 7.4 % (2.6-8.5); Neutrophils Absolute Auto 11.2 K/mm3 (1.3-6.7); Neutrophils Percent Auto 85.5 % (45.5-73.1); Platelet Count Result 175 k/mm3 (150-375); Red Cell Distribution Width 15.3 % (11.5-14.5); White Blood Count 13.1 K/mm3 (4.5-10.0)
[2021-11-12 04:51] LABS: Alanine Aminotransferase 19 U/L (4-35); Alkaline Phosphatase 119 U/L (38-126); Anion Gap 6 mmol/L (8-16); Aspartate Amino Transferase 47 U/L (14-36); Bilirubin,Total 0.8 mg/dL (0.2-1.3); Blood Urea Nitrogen 21 mg/dL (7-17); Calcium 8.9 mg/dL (8.4-10.2); Carbon Dioxide 26 mmol/L (22-30); Chloride 102 mmol/L (98-107); Estimated CRCL calculation 61 ml/min; Estimated Glomerular Filt Rate > 60; Glucose 191 mg/dL (65-110); Lactic Acid Reflex 1.8 mmol/L (0.7-2.1); Magnesium 0.6 mg/dL (1.6-2.3); Potassium 3.1 mmol/L (3.4-5.0); Sodium 134 mmol/L (137-145)
[2021-11-12] MEDS: FLUTICASONE/SALMETEROL 115-21 MCG INHALER 1 PUFF 2 PUFF INHALATION ×2 (08:21→19:48)
--- NOTE | 2021-11-12 08:30 | P.PNIM_ITS ---
Progress Note: A&P Assessment and Plan (1) Sepsis: Code(s): A41.9 - Sepsis, unspecified organism Status: Acute Assessment and Plan: * Sepsis criteria met on admission with WBC 17.9, Fever >101, Lactic of 2.8, sl ight hypotension 97/63 * Source of infection looks to be bacteremia and UTI * QSofa score 3 * IV hydration x 2L in the ED, continued at 75ml/hr * Blood cultures growing gram positive cocci in chains * Urine culture grew klebsiella pnemoniae * Started IV vancomycin and Primaxin * WBC trending down 13.1 today * Seem to be controlled at this time * Can move patient out of IMU at this time (2) Bacteremia: Code(s): R78.81 - Bacteremia Status: Acute Assessment and Plan: * Blood cultures grew gram positive cocci in clusters * Vancomycin on board * Trend blood cultures * Tailor antibiotics to susceptibilities * Await further culture results (3) Cellulitis of right leg: Code(s): L03.115 - Cellulitis of right lower limb Status: Acute Assessment and Plan: * Notable wound to the right lower leg * Continue imipenem and vancomycin per antibiotic stewardship recommendations * Concern for arterial and venous insufficiency * wound present for greater than 3 months without healing. * ABIs showed no significant arterial occlusive disease * venous duplex, no DVT noted * Patient may need to consult with vascular intervention and podiatry (4) Urinary tract infection: Code(s): N39.0 - Urinary tract infection, site not specified Status: Acute Assessment and Plan: * UA showed cloudy, 2+ blood, positive nitrates, 3+ leukocyte esterase, >75 WBC, WBC clumps present, 4+ bacteria * Urine culture grew Klebsiella pnemoniae * Continue Primaxin * trend output * Trend symptoms (5) Delirium: Code(s): R41.0 - Disorientation, unspecified Status: Acute Assessment and Plan: * Related to sepsis and infection * Reorientation often * She seems to be near her baseline at this time. 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 (7) Generalized weakness: Code(s): R53.1 - Weakness Status: Acute Assessment and Plan: * Related to a combination of the above. Should improve with treatment. (8) Acute kidney injury: Code(s): N17.9 - Acute kidney failure, unspecified Status: Acute Assessment and Plan: * BUN/Cr 26/1.20 * Baseline seems to be around 0.9-1.00 * IV fluids for hydration * Trend labs * Avoid nephrotoxic agents. (9) Type 2 diabetes mellitus with hyperglycemia: Code(s): E11.65 - Type 2 diabetes mellitus with hyperglycemia Status: Acute Assessment and Plan: * Glucose 191 * Initiate sliding scale insulin * Accu-Cheks * hypoglycemic protocol * Hemoglobin A1c 7.2 (10) Persistent atrial fibrillation: Code(s): I48.19 - Other persistent atrial fibrillation Status: Acute Assessment and Plan: * HR in 80 * Rate controlled on metoprolol
--- NOTE | 2021-11-12 08:30 | PM.IMPN ---
Progress Note: A&P Assessment and Plan (1) Sepsis: Code(s): A41.9 - Sepsis, unspecified organism Status: Acute Assessment and Plan: Sepsis criteria met on admission with WBC 17.9, Fever >101, Lactic of 2.8, slight hypotension 97/63 Source of infection looks to be bacteremia and UTI QSofa score 3 IV hydration x 2L in the ED, continued at 75ml/hr Blood cultures growing gram positive cocci in chains Urine culture grew klebsiella pnemoniae Started IV vancomycin and Primaxin WBC trending down 13.1 today Seem to be controlled at this time Can move patient out of IMU at this time (2) Bacteremia: Code(s): R78.81 - Bacteremia Status: Acute Assessment and Plan: Blood cultures grew gram positive cocci in clusters Vancomycin on board Trend blood cultures Tailor antibiotics to susceptibilities Await further culture results (3) Cellulitis of right leg: Code(s): L03.115 - Cellulitis of right lower limb Status: Acute Assessment and Plan: Notable wound to the right lower leg Continue imipenem and vancomycin per antibiotic stewardship recommendations Concern for arterial and venous insufficiency wound present for greater than 3 months without healing. ABIs showed no significant arterial occlusive disease venous duplex, no DVT noted Patient may need to consult with vascular intervention and podiatry (4) Urinary tract infection: Code(s): N39.0 - Urinary tract infection, site not specified Status: Acute Assessment and Plan: UA showed cloudy, 2+ blood, positive nitrates, 3+ leukocyte esterase, >75 WBC, WBC clumps present, 4+ bacteria Urine culture grew Klebsiella pnemoniae Continue Primaxin trend output Trend symptoms (5) Delirium: Code(s): R41.0 - Disorientation, unspecified Status: Acute Assessment and Plan: Related to sepsis and infection Reorientation often She seems to be near her baseline at this time. 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 (7) Generalized weakness: Code(s): R53.1 - Weakness Status: Acute Assessment and Plan: Related to a combination of the above. Should improve with treatment. (8) Acute kidney injury: Code(s): N17.9 - Acute kidney failure, unspecified Status: Acute Assessment and Plan: BUN/Cr 26/1.20 Baseline seems to be around 0.9-1.00 IV fluids for hydration Trend labs Avoid nephrotoxic agents. (9) Type 2 diabetes mellitus with hyperglycemia: Code(s): E11.65 - Type 2 diabetes mellitus with hyperglycemia Status: Acute Assessment and Plan: Glucose 191 Initiate sliding scale insulin Accu-Cheks hypoglycemic protocol Hemoglobin A1c 7.2 (10) Persistent atrial fibrillation: Code(s): I48.19 - Other persistent atrial fibrillation Status: Acute Assessment and Plan: HR in 80 Rate controlled on metoprolol Continue rivaroxaban for stroke prophylaxis. (11) Congestive heart failure: Qualifiers: Heart failure chronicity: acute on chronic Heart failure type: unspecified Qualified Code(s): I50.9 - Heart failure, unspecified Code(s): I50.9 - Heart failure, unspecified Status: Acute Assessment and Plan: EF 70-75% with indeterminate diastolic dysfunction Looks to be compenstated Trend output strict I&O Daily weights avoid over-hydration. Time Spent With Patient Time with patient: Greater than 35 minutes Subjective
[2021-11-12 08:38] LABS: Glucose Point of Care 175 mg/dl (65-105)
[2021-11-12] MEDS: allopurinoL 300 MG TABLET PO (09:43)
[2021-11-12] MEDS: POLYMYXIN/TRIMETHOPRIM OPHTH 10 ML DROPS 1 DROP EACH EYE ×4 (09:43→21:00)
[2021-11-12] MEDS: ATORVASTATIN 40 MG TABLET PO (09:43)
[2021-11-12] MEDS: buPROPion HCL XL (24 HR) 150 MG TABCR 300 MG PO (09:44)
[2021-11-12] MEDS: MEMANTINE 10 MG TABLET PO ×2 (09:46→16:33)
[2021-11-12] MEDS: METOPROLOL SUCCINATE EXT REL 50 MG TABCR PO (09:46)
[2021-11-12] MEDS: RIVAROXABAN 15 MG TABLET PO (09:47)
[2021-11-12] MEDS: OFLOXACIN 0.3% OPHTH SOLN 5 ML BTL 1 DROP LEFT EYE ×4 (09:47→21:00)
[2021-11-12] MEDS: valACYclovir HCL 500 MG TABLET 1000 MG PO (09:48)
[2021-11-12] MEDS: ARTIFICIAL TEARS OPHTH SOLN 15 ML BOTTLE 2 DROP EACH EYE (09:57)
[2021-11-12] MEDS: HYDROcodone/acetaminophen (*CRX) 5-325 MG TABLET 1 TAB PO (10:18)
[2021-11-12] MEDS: SILVERGEL (ELTA) 45 ML 1 APPLIC TOPICAL (10:19)
[2021-11-12] MEDS: INSULIN ASPART (*BKC) 100 UNITS/ML SUB-Q (12:35)
[2021-11-12] MEDS: MORPHINE SULFATE (*CRX) 4 MG/ML INJ 1 MG IV PUSH (12:37)
[2021-11-12 12:46] LABS: Glucose Point of Care 227 mg/dl (65-105)
--- NOTE | 2021-11-12 15:27 | PC.NURSE ---
This patient, Dodie Duong, was received from IMU on 11/12/21 at 1527. Patient/family oriented to unit policies and routines
--- NOTE | 2021-11-12 15:39 | PC.NURSE ---
1500-report called to 2 medical 1520-pt transferred via bed to room 248. pt's at bedside. 1530-pt walked to bathroom with 2 assist. tolerated well.
--- NOTE | 2021-11-12 15:42 | PCDIET ---
1520-pt belongings with pt.
[2021-11-12 16:35] LABS: Glucose Point of Care 132 mg/dl (65-105)
[2021-11-12 20:47] LABS: Glucose Point of Care 149 mg/dl (65-105)
[2021-11-13] VITALS (15 sets, daily range): BP systolic 117–144; BP diastolic 51–83; PULSE 74–91; RESP 16–18; TEMP 36.1–36.6; O2SAT 94–97
--- NOTE | 2021-11-13 | ECHO_ITS ---
Patient Info Name: Dodie Duong Age: 76 years : 1945 Gender: Female Ht: 68 in Wt: 243 lbs BSA: 2.35 m2 HR: 82 bpm BP: 127 / 67 mmHg Heart Rhythm: Atrial Fibrillation Exam Date: 11/13/2021 2:36 PM Exam Location: [facility] Patient Status: Inpatient Admit Date: 11/11/2021 Staff Ordering Physician: Ned Oseguera [facility] Technician: Jf Bernal RDCS, RT Attending Provider: Antolni Zavaleta MD Referring Physician: Oumar ALLEN; Exam Type: CA echo doppler color flow Study Info Indications I50.9 - Heart failure, unspecified Complete two-dimensional, color flow and Doppler transthoracic echocardiogram is performed with contrast to opacify the left ventricle and to improve the deliniation of the left ventricle endocardial borders. Summary 1. Left ventricular chamber dimension is normal. 2. Left ventricular systolic function is normal, estimated at >70%. 3. There is moderately increased left ventricular wall thickness. 4. Left ventricular septal wall motion is abnormal with septal motion related to bundle branch block. 5. Left atrial chamber dimension is severely enlarged. 6. Right atrial chamber dimension is severely enlarged. 7. There is mild tricuspid valve regurgitation. 8. Moderate pulmonary hypertension, estimated pulmonary arterial systolic pressure is 53 mmHg. Recommendations * Consider transesophageal echocardiogram if clinically indicated. Left Ventricle Left ventricular chamber dimension is normal. Left ventricular systolic function is normal, estimated at >70%. There is moderately increased left ventricular wall thickness. Left ventricular septal wall motion is abnormal with septal motion related to bundle branch block. The left ventricular diastolic function is indeterminate. Right Ventricle Right ventricular chamber dimension is normal. Right ventricular systolic function is normal. Left Atria Left atrial chamber dimension is severely enlarged. Right Atria Right atrial chamber dimension is severely enlarged. Aortic Valve The aortic valve is trileaflet. There is no aortic valve stenosis. There is no aortic valve regurgitation. Pulmonic Valve The pulmonic valve is normal. There is trace pulmonic regurgitation. Mitral Valve The mitral valve has normal leaflets. There is mild mitral valve regurgitation. The mitral valve annulus is mildly calcified. Tricuspid Valve The tricuspid valve leaflets are normal. There is mild tricuspid valve regurgitation. Moderate pulmonary hypertension, estimated pulmonary arterial systolic pressure is 53 mmHg. Pericardium/Pleural The pericardium appears normal. There is small pericardial effusion. Inferior Vena Cava Dilated inferior vena cava with >50% collapse upon inspiration consistent with elevated right atrial pressure, 10 mmHg. Aorta The aortic root size at the sinus of Valsalva is normal. There is mild aortic atherosclerosis. Left Ventricular Outflow Tract Name Value Normal LVOT 2D LVOT Diameter 2.0 cm LVOT Doppler LVOT Peak Gradient 1 mmHg LVOT Mean Gradient
[2021-11-13] MEDS: HYDROcodone/acetaminophen (*CRX) 5-325 MG TABLET 1 TAB PO (03:14)
[2021-11-13 07:47] LABS: Glucose Point of Care 158 mg/dl (65-105)
--- NOTE | 2021-11-13 08:15 | PM.IMPN ---
Progress Note: A&P Assessment and Plan (1) Sepsis: Code(s): A41.9 - Sepsis, unspecified organism Status: Acute Assessment and Plan: Sepsis criteria met on admission with WBC 17.9, Fever >101, Lactic of 2.8, slight hypotension 97/63 Source of infection looks to be bacteremia and UTI QSofa score 3 IV hydration x 2L in the ED, continued at 75ml/hr, fluid DC'd at this time Blood cultures growing group B streptococcus Urine culture grew klebsiella pnemoniae IV ceftriaxone started WBC 13.2 today Seem to be controlled at this time (2) Bacteremia: Code(s): R78.81 - Bacteremia Status: Acute Assessment and Plan: Blood cultures grew group B strep Vancomycin on board Looks to be susceptible to ceftriaxone Will continue vancomycin for now Get repeat cultures for line placement (3) Cellulitis of right leg: Code(s): L03.115 - Cellulitis of right lower limb Status: Acute Assessment and Plan: Notable wound to the right lower leg Continue imipenem and vancomycin per antibiotic stewardship recommendations Concern for arterial and venous insufficiency wound present for greater than 3 months without healing. ABIs showed no significant arterial occlusive disease venous duplex, no DVT noted Patient may need to consult with vascular intervention and podiatry Add morphine for break through pain, continue norco (4) Urinary tract infection: Code(s): N39.0 - Urinary tract infection, site not specified Status: Acute Assessment and Plan: UA showed cloudy, 2+ blood, positive nitrates, 3+ leukocyte esterase, >75 WBC, WBC clumps present, 4+ bacteria Urine culture grew Klebsiella pnemoniae Continue Primaxin, consider switching to Ceftriaxone trend output Trend symptoms (5) Delirium: Code(s): R41.0 - Disorientation, unspecified Status: Acute Assessment and Plan: Seems to be resolved Related to sepsis and infection Reorientation often She seems to be near her baseline at this time. 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 PT/OT (7) Generalized weakness: Code(s): R53.1 - Weakness Status: Acute Assessment and Plan: Related to a combination of the above. Should improve with treatment. (8) Acute kidney injury: Code(s): N17.9 - Acute kidney failure, unspecified Status: Acute Assessment and Plan: Resolved BUN/Cr 19/0.90 Baseline seems to be around 0.9-1.00 IV fluids for hydration Trend labs Avoid nephrotoxic agents. (9) Type 2 diabetes mellitus with hyperglycemia: Code(s): E11.65 - Type 2 diabetes mellitus with hyperglycemia Status: Acute Assessment and Plan: Glucose 172 Initiate sliding scale insulin Accu-Cheks hypoglycemic protocol Hemoglobin A1c 7.2 (10) Persistent atrial fibrillation: Code(s): I48.19 - Other persistent atrial fibrillation Status: Acute Assessment and Plan: HR in 80 Rate controlled on metoprolol Continue rivaroxaban for stroke prophylaxis. DC telemonitor, since she has no acute events (11) Congestive heart failure: Qualifiers: Heart failure chronicity: acute on chronic Heart failure type: unspecified Qualified Code(s): I50.9 - Heart failure, unspecified Code(s): I50.9 - Heart failure, unspecified Status: Acute Assessment and Plan: EF 70-75% with indeterminate diastolic dysfunction Looks to be compenstated Trend output strict I
--- NOTE | 2021-11-13 08:15 | P.PNIM_ITS ---
Progress Note: A&P Assessment and Plan (1) Sepsis: Code(s): A41.9 - Sepsis, unspecified organism Status: Acute Assessment and Plan: * Sepsis criteria met on admission with WBC 17.9, Fever >101, Lactic of 2.8, sl ight hypotension 97/63 * Source of infection looks to be bacteremia and UTI * QSofa score 3 * IV hydration x 2L in the ED, continued at 75ml/hr, fluid DC'd at this time * Blood cultures growing group B streptococcus * Urine culture grew klebsiella pnemoniae * IV ceftriaxone started * WBC 13.2 today * Seem to be controlled at this time (2) Bacteremia: Code(s): R78.81 - Bacteremia Status: Acute Assessment and Plan: * Blood cultures grew group B strep * Vancomycin on board * Looks to be susceptible to ceftriaxone * Will continue vancomycin for now * Get repeat cultures for line placement (3) Cellulitis of right leg: Code(s): L03.115 - Cellulitis of right lower limb Status: Acute Assessment and Plan: * Notable wound to the right lower leg * Continue imipenem and vancomycin per antibiotic stewardship recommendations * Concern for arterial and venous insufficiency * wound present for greater than 3 months without healing. * ABIs showed no significant arterial occlusive disease * venous duplex, no DVT noted * Patient may need to consult with vascular intervention and podiatry * Add morphine for break through pain, continue norco (4) Urinary tract infection: Code(s): N39.0 - Urinary tract infection, site not specified Status: Acute Assessment and Plan: * UA showed cloudy, 2+ blood, positive nitrates, 3+ leukocyte esterase, >75 WBC, WBC clumps present, 4+ bacteria * Urine culture grew Klebsiella pnemoniae * Continue Primaxin, consider switching to Ceftriaxone * trend output * Trend symptoms (5) Delirium: Code(s): R41.0 - Disorientation, unspecified Status: Acute Assessment and Plan: * Seems to be resolved * Related to sepsis and infection * Reorientation often * She seems to be near her baseline at this time. 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 * PT/OT (7) Generalized weakness: Code(s): R53.1 - Weakness Status: Acute Assessment and Plan: * Related to a combination of the above. Should improve with treatment. (8) Acute kidney injury: Code(s): N17.9 - Acute kidney failure, unspecified Status: Acute Assessment and Plan: * Resolved * BUN/Cr 19/0.90 * Baseline seems to be around 0.9-1.00 * IV fluids for hydration * Trend labs * Avoid nephrotoxic agents. (9) Type 2 diabetes mellitus with hyperglycemia: Code(s): E11.65 - Type 2 diabetes mellitus with hyperglycemia Status: Acute Assessment and Plan: * Glucose 172 * Initiate sliding scale insulin * Accu-Cheks * hypoglycemic protocol * Hemoglobin A1c 7.2 (10) Persistent atrial fibrillation: Code(s): I48.19 - Other persistent atrial fibrillation
[2021-11-13 08:16] LABS: Basophils Absolute Auto 0.1 K/mm3 (0.0-0.1); Basophils Percent Auto 0.4 % (0.2-1.2); Eosinophils Absolute Auto 0.1 K/mm3 (0-0.3); Eosinophils Percent Auto 0.7 % (0-4.4); Hematocrit 39.4 % (37.0-47.0); Hemoglobin 12.3 g/dL (12.0-15.0); Immature Granulocyte Absolute 0.06 K/mm3 (0.00-0.031); Immature Granulocyte Percent A 0.5 % (0-0.5); Lymphocytes Absolute Auto 0.98 K/mm3 (0.9-3.2); Lymphocytes Percent Auto 7.4 % (18.3-44.2); Mean Corpuscular HGB Conc 31.2 g/dl (32-36); Mean Corpuscular Hemoglobin 31.3 pg (26-34); Mean Corpuscular Volume 100.3 fl (80-100); Mean Platelet Volume 10.4 fl (7.4-10.4); Monocytes Absolute Auto 1.2 K/mm3 (0.1-0.6); Monocytes Percent Auto 8.9 % (2.6-8.5); Neutrophils Absolute Auto 10.9 K/mm3 (1.3-6.7); Neutrophils Percent Auto 82.1 % (45.5-73.1); Platelet Count Result 227 k/mm3 (150-375); Red Blood Count 3.93 M/mm3 (4.2-5.4); Red Cell Distribution Width 15.2 % (11.5-14.5); White Blood Count 13.2 K/mm3 (4.5-10.0)
[2021-11-13] MEDS: FLUTICASONE/SALMETEROL 115-21 MCG INHALER 1 PUFF 2 PUFF INHALATION ×2 (08:20→21:27)
[2021-11-13 08:34] LABS: Alanine Aminotransferase 19 U/L (4-35); Albumin Level 3.6 g/dL (3.5-5.1); Alkaline Phosphatase 151 U/L (38-126); Anion Gap 8 mmol/L (8-16); Aspartate Amino Transferase 32 U/L (14-36); Bilirubin,Total 0.9 mg/dL (0.2-1.3); Blood Urea Nitrogen 19 mg/dL (7-17); Calcium 9.4 mg/dL (8.4-10.2); Carbon Dioxide 28 mmol/L (22-30); Chloride 99 mmol/L (98-107); Estimated CRCL calculation 62 ml/min; Estimated Glomerular Filt Rate > 60; Glucose 172 mg/dL (65-110); Magnesium 2.1 mg/dL (1.6-2.3); Potassium 3.3 mmol/L (3.4-5.0); Sodium 135 mmol/L (137-145)
[2021-11-13 08:52] LABS: Vancomycin Trough 13.8 ug/mL (10.0-20.0)
[2021-11-13] MEDS: buPROPion HCL XL (24 HR) 150 MG TABCR 300 MG PO (08:55)
[2021-11-13] MEDS: allopurinoL 300 MG TABLET PO (08:55)
[2021-11-13] MEDS: ATORVASTATIN 40 MG TABLET PO (08:55)
[2021-11-13] MEDS: METOPROLOL SUCCINATE EXT REL 50 MG TABCR PO (08:56)
[2021-11-13] MEDS: POLYMYXIN/TRIMETHOPRIM OPHTH 10 ML DROPS 1 DROP EACH EYE ×4 (08:56→19:53)
[2021-11-13] MEDS: MEMANTINE 10 MG TABLET PO ×2 (08:56→17:10)
[2021-11-13] MEDS: ARTIFICIAL TEARS OPHTH SOLN 15 ML BOTTLE 2 DROP EACH EYE (08:57)
[2021-11-13] MEDS: OFLOXACIN 0.3% OPHTH SOLN 5 ML BTL 1 DROP LEFT EYE ×4 (08:57→19:53)
[2021-11-13] MEDS: RIVAROXABAN 15 MG TABLET PO (08:57)
[2021-11-13] MEDS: valACYclovir HCL 500 MG TABLET 1000 MG PO (08:57)
[2021-11-13] MEDS: SILVERGEL (ELTA) 45 ML 1 APPLIC TOPICAL (08:57)
--- NOTE | 2021-11-13 09:48 | PCPTNOTE ---
Attempted PT evaluation, Patient getting blood cultures taken. Certified Art Therapist request therapist to return at later time.
[2021-11-13 11:44] LABS: Glucose Point of Care 168 mg/dl (65-105)
[2021-11-13] MEDS: POTASSIUM CHLORIDE 20 MEQ TABLET 40 MEQ PO (11:52)
[2021-11-13] MEDS: cefTRIAXone 2 GM in SODIUM CHLORIDE 0.9% IV 100 ML 200 ML IVPB (11:54)
[2021-11-13] MEDS: PERFLUTREN LIPID MICROSPHERES 1.5 ML VIAL DILUTED TO 10 ML TOTAL VOLUME IV PUSH (15:03)
--- NOTE | 2021-11-13 15:03 | IVDEFINITY ---
Prior to administration of IV Definity the patient was educated on the risks and benefits of the imaging enhancing agent including potential adverse side effects. The patient verbalized understanding. Allergies were verified. No exclusion criteria were identified and at least one of the following inclusion criteria were met: 1) physician request, 2) patient technically difficult to image (per the [place] [employer] guidelines of two or more segments not discernable within the apical view), or 3) questionable left ventricular function. ?
[2021-11-13 16:38] LABS: Glucose Point of Care 115 mg/dl (65-105)
[2021-11-14] VITALS (12 sets, daily range): BP systolic 106–130; BP diastolic 45–82; PULSE 74–88; RESP 18; TEMP 36.7–37; O2SAT 94–96
[2021-11-14 00:55] LABS: Glucose Point of Care 126 mg/dl (65-105)
[2021-11-14 08:04] LABS: Glucose Point of Care 176 mg/dl (65-105)
--- NOTE | 2021-11-14 08:15 | PM.IMPN ---
Progress Note: A&P Assessment and Plan (1) Sepsis: Code(s): A41.9 - Sepsis, unspecified organism Status: Acute Assessment and Plan: Sepsis criteria met on admission with WBC 17.9, Fever >101, Lactic of 2.8, slight hypotension 97/63 Source of infection looks to be bacteremia and UTI QSofa score 3 IV hydration x 2L in the ED, continued at 75ml/hr, fluid DC'd at this time Blood cultures growing group B streptococcus Urine culture grew klebsiella pnemoniae IV ceftriaxone (started 11/13/21) day 2 WBC 10.7 today Seem to be controlled at this time Repeat cultures were drawn and show NGTD Day 5 of antibiotics Wound culture pending for leg wound (2) Bacteremia: Code(s): R78.81 - Bacteremia Status: Acute Assessment and Plan: Blood cultures grew group B strep Antibiotics switched to IV ceftriaxone per susceptibilities repeat cultures shows NGTD Will need a line and a total of 10 days of IV antibiotics (3) Cellulitis of right leg: Code(s): L03.115 - Cellulitis of right lower limb Status: Acute Assessment and Plan: Notable wound to the right lower leg Continue imipenem and vancomycin per antibiotic stewardship recommendations Concern for arterial and venous insufficiency wound present for greater than 3 months without healing. ABIs showed no significant arterial occlusive disease venous duplex, no DVT noted Patient may need to consult with vascular intervention and podiatry Add morphine for break through pain, continue norco Complaints of increased pain Consulted General surgery just for a second opinion, due to the increase of pain wound culture pending (4) Urinary tract infection: Code(s): N39.0 - Urinary tract infection, site not specified Status: Acute Assessment and Plan: UA showed cloudy, 2+ blood, positive nitrates, 3+ leukocyte esterase, >75 WBC, WBC clumps present, 4+ bacteria Urine culture grew Klebsiella pnemoniae Continue Primaxin, switching to Ceftriaxone trend output Trend symptoms (5) Delirium: Code(s): R41.0 - Disorientation, unspecified Status: Acute Assessment and Plan: Seems to wax and wane, probably from the infection, however pain is definitely playing a role. Related to sepsis and infection Reorientation often She seems to be near her baseline at this time. 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 PT/OT (7) Generalized weakness: Code(s): R53.1 - Weakness Status: Acute Assessment and Plan: Related to a combination of the above. Should improve with treatment. (8) Acute kidney injury: Code(s): N17.9 - Acute kidney failure, unspecified Status: Acute Assessment and Plan: Resolved BUN/Cr 19/0.90 Baseline seems to be around 0.9-1.00 IV fluids for hydration Trend labs Avoid nephrotoxic agents. (9) Type 2 diabetes mellitus with hyperglycemia: Code(s): E11.65 - Type 2 diabetes mellitus with hyperglycemia Status: Acute Assessment and Plan: Glucose 207 Initiate sliding scale insulin Accu-Cheks hypoglycemic protocol Hemoglobin A1c 7.2 (10) Persistent atrial fibrillation: Code(s): I48.19 - Other persistent atrial fibrillation Status: Acute Assessment and Plan: HR in 80 Rate controlled on metoprolol Continue rivaroxaban for stroke prophylaxis. DC telemonitor, since she has no acute events (11) Congestive heart failure: Qualifiers: Heart
--- NOTE | 2021-11-14 08:15 | P.PNIM_ITS ---
Progress Note: A&P Assessment and Plan (1) Sepsis: Code(s): A41.9 - Sepsis, unspecified organism Status: Acute Assessment and Plan: * Sepsis criteria met on admission with WBC 17.9, Fever >101, Lactic of 2.8, sl ight hypotension 97/63 * Source of infection looks to be bacteremia and UTI * QSofa score 3 * IV hydration x 2L in the ED, continued at 75ml/hr, fluid DC'd at this time * Blood cultures growing group B streptococcus * Urine culture grew klebsiella pnemoniae * IV ceftriaxone (started 11/13/21) day 2 * WBC 10.7 today * Seem to be controlled at this time * Repeat cultures were drawn and show NGTD * Day 5 of antibiotics * Wound culture pending for leg wound (2) Bacteremia: Code(s): R78.81 - Bacteremia Status: Acute Assessment and Plan: * Blood cultures grew group B strep * Antibiotics switched to IV ceftriaxone per susceptibilities * repeat cultures shows NGTD * Will need a line and a total of 10 days of IV antibiotics (3) Cellulitis of right leg: Code(s): L03.115 - Cellulitis of right lower limb Status: Acute Assessment and Plan: * Notable wound to the right lower leg * Continue imipenem and vancomycin per antibiotic stewardship recommendations * Concern for arterial and venous insufficiency * wound present for greater than 3 months without healing. * ABIs showed no significant arterial occlusive disease * venous duplex, no DVT noted * Patient may need to consult with vascular intervention and podiatry * Add morphine for break through pain, continue norco * Complaints of increased pain * Consulted General surgery just for a second opinion, due to the increase of pain * wound culture pending (4) Urinary tract infection: Code(s): N39.0 - Urinary tract infection, site not specified Status: Acute Assessment and Plan: * UA showed cloudy, 2+ blood, positive nitrates, 3+ leukocyte esterase, >75 WBC, WBC clumps present, 4+ bacteria * Urine culture grew Klebsiella pnemoniae * Continue Primaxin, switching to Ceftriaxone * trend output * Trend symptoms (5) Delirium: Code(s): R41.0 - Disorientation, unspecified Status: Acute Assessment and Plan: * Seems to wax and wane, probably from the infection, however pain is definitely playing a role. * Related to sepsis and infection * Reorientation often * She seems to be near her baseline at this time. 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 * PT/OT (7) Generalized weakness: Code(s): R53.1 - Weakness Status: Acute Assessment and Plan: * Related to a combination of the above. Should improve with treatment. (8) Acute kidney injury: Code(s): N17.9 - Acute kidney failure, unspecified Status: Acute Assessment and Plan: * Resolved * BUN/Cr 19/0.90 * Baseline seems to be around 0.9-1.00 * IV fluids for hydration * Trend labs * Avoid nephrotoxic agents. (9) Type 2 diabetes mellitus with hyperglycemia: Code(s): E11.65 - Type 2 brandon
[2021-11-14 08:23] LABS: Basophils Absolute Auto 0.1 K/mm3 (0.0-0.1); Basophils Percent Auto 0.5 % (0.2-1.2); Eosinophils Absolute Auto 0.1 K/mm3 (0-0.3); Eosinophils Percent Auto 0.8 % (0-4.4); Hematocrit 38.6 % (37.0-47.0); Hemoglobin 11.9 g/dL (12.0-15.0); Immature Granulocyte Absolute 0.06 K/mm3 (0.00-0.031); Immature Granulocyte Percent A 0.6 % (0-0.5); Lymphocytes Absolute Auto 0.78 K/mm3 (0.9-3.2); Lymphocytes Percent Auto 7.3 % (18.3-44.2); Mean Corpuscular HGB Conc 30.8 g/dl (32-36); Mean Corpuscular Volume 100.5 fl (80-100); Mean Platelet Volume 10.1 fl (7.4-10.4); Monocytes Absolute Auto 0.7 K/mm3 (0.1-0.6); Monocytes Percent Auto 6.1 % (2.6-8.5); Neutrophils Percent Auto 84.7 % (45.5-73.1); Platelet Count Result 260 k/mm3 (150-375); Red Blood Count 3.84 M/mm3 (4.2-5.4); Red Cell Distribution Width 15.2 % (11.5-14.5); White Blood Count 10.7 K/mm3 (4.5-10.0)
[2021-11-14] MEDS: buPROPion HCL XL (24 HR) 150 MG TABCR 300 MG PO (08:25)
[2021-11-14] MEDS: METOPROLOL SUCCINATE EXT REL 50 MG TABCR PO (08:25)
[2021-11-14] MEDS: valACYclovir HCL 500 MG TABLET 1000 MG PO (08:25)
[2021-11-14] MEDS: allopurinoL 300 MG TABLET PO (08:25)
[2021-11-14] MEDS: ATORVASTATIN 40 MG TABLET PO (08:25)
[2021-11-14] MEDS: MEMANTINE 10 MG TABLET PO ×2 (08:25→17:16)
[2021-11-14] MEDS: RIVAROXABAN 15 MG TABLET PO (08:25)
[2021-11-14] MEDS: SILVERGEL (ELTA) 45 ML 1 APPLIC TOPICAL (08:26)
[2021-11-14] MEDS: POLYMYXIN/TRIMETHOPRIM OPHTH 10 ML DROPS 1 DROP EACH EYE ×4 (08:26→19:52)
[2021-11-14] MEDS: ARTIFICIAL TEARS OPHTH SOLN 15 ML BOTTLE 2 DROP EACH EYE (08:26)
[2021-11-14] MEDS: OFLOXACIN 0.3% OPHTH SOLN 5 ML BTL 1 DROP LEFT EYE ×4 (08:26→19:51)
[2021-11-14 09:04] LABS: Alanine Aminotransferase 19 U/L (4-35); Albumin Level 3.3 g/dL (3.5-5.1); Alkaline Phosphatase 142 U/L (38-126); Anion Gap 6 mmol/L (8-16); Aspartate Amino Transferase 38 U/L (14-36); Bilirubin,Total 0.6 mg/dL (0.2-1.3); Blood Urea Nitrogen 19 mg/dL (7-17); Calcium 9.4 mg/dL (8.4-10.2); Carbon Dioxide 29 mmol/L (22-30); Chloride 102 mmol/L (98-107); Estimated CRCL calculation 63 ml/min; Estimated Glomerular Filt Rate > 60; Glucose 201 mg/dL (65-110); Potassium 3.7 mmol/L (3.4-5.0); Sodium 137 mmol/L (137-145)
[2021-11-14] MEDS: FLUTICASONE/SALMETEROL 115-21 MCG INHALER 1 PUFF 2 PUFF INHALATION ×2 (09:22→20:06)
[2021-11-14] MEDS: cefTRIAXone 2 GM in SODIUM CHLORIDE 0.9% IV 100 ML 200 ML IVPB (12:15)
[2021-11-14 12:22] LABS: Glucose Point of Care 175 mg/dl (65-105)
[2021-11-14] MEDS: HYDROcodone/acetaminophen (*CRX) 5-325 MG TABLET 1 TAB PO (14:51)
[2021-11-14 16:35] LABS: Glucose Point of Care 123 mg/dl (65-105)
[2021-11-14] MEDS: ACETAMINOPHEN 325 MG TABLET 650 MG PO (20:22)
[2021-11-14 20:32] LABS: Glucose Point of Care 153 mg/dl (65-105)
[2021-11-15 05:29] LABS: Basophils Absolute Auto 0.1 K/mm3 (0.0-0.1); Basophils Percent Auto 0.7 % (0.2-1.2); Eosinophils Absolute Auto 0.2 K/mm3 (0-0.3); Eosinophils Percent Auto 1.6 % (0-4.4); Hematocrit 35.3 % (37.0-47.0); Hemoglobin 11.4 g/dL (12.0-15.0); Immature Granulocyte Absolute 0.08 K/mm3 (0.00-0.031); Immature Granulocyte Percent A 0.7 % (0-0.5); Lymphocytes Percent Auto 10.3 % (18.3-44.2); Mean Corpuscular HGB Conc 32.3 g/dl (32-36); Mean Corpuscular Hemoglobin 30.9 pg (26-34); Mean Corpuscular Volume 95.7 fl (80-100); Mean Platelet Volume 10.2 fl (7.4-10.4); Monocytes Absolute Auto 0.7 K/mm3 (0.1-0.6); Monocytes Percent Auto 6.8 % (2.6-8.5); Neutrophils Absolute Auto 8.5 K/mm3 (1.3-6.7); Neutrophils Percent Auto 79.9 % (45.5-73.1); Platelet Count Result 293 k/mm3 (150-375); Red Blood Count 3.69 M/mm3 (4.2-5.4); White Blood Count 10.7 K/mm3 (4.5-10.0)
[2021-11-15 05:55] LABS: Alanine Aminotransferase 18 U/L (4-35); Albumin Level 3.1 g/dL (3.5-5.1); Alkaline Phosphatase 131 U/L (38-126); Anion Gap 5 mmol/L (8-16); Aspartate Amino Transferase 32 U/L (14-36); Bilirubin,Total 0.4 mg/dL (0.2-1.3); Blood Urea Nitrogen 19 mg/dL (7-17); Calcium 9.1 mg/dL (8.4-10.2); Carbon Dioxide 32 mmol/L (22-30); Chloride 102 mmol/L (98-107); Estimated CRCL calculation 52 ml/min; Estimated Glomerular Filt Rate 48; Glucose 148 mg/dL (65-110); Magnesium 2.1 mg/dL (1.6-2.3); Potassium 3.7 mmol/L (3.4-5.0); Sodium 139 mmol/L (137-145)
[2021-11-15 06:01] VITALS: BP 125/52; PULSE 95; RESP 18; TEMP 36.6; O2SAT 97
[2021-11-15 08:00] VITALS: BP 125/52; PULSE 95; RESP 18; TEMP 36.6; O2SAT 97
[2021-11-15 08:04] LABS: Glucose Point of Care 154 mg/dl (65-105)
[2021-11-15] MEDS: FLUTICASONE/SALMETEROL 115-21 MCG INHALER 1 PUFF 2 PUFF INHALATION ×2 (08:31→20:34)
[2021-11-15] MEDS: MEMANTINE 10 MG TABLET PO ×2 (09:15→17:35)
[2021-11-15] MEDS: allopurinoL 300 MG TABLET PO (09:15)
[2021-11-15] MEDS: METOPROLOL SUCCINATE EXT REL 50 MG TABCR PO (09:15)
[2021-11-15] MEDS: valACYclovir HCL 500 MG TABLET 1000 MG PO (09:15)
[2021-11-15] MEDS: SILVERGEL (ELTA) 45 ML 1 APPLIC TOPICAL (09:15)
[2021-11-15] MEDS: POLYMYXIN/TRIMETHOPRIM OPHTH 10 ML DROPS 1 DROP EACH EYE ×4 (09:16→20:03)
[2021-11-15] MEDS: RIVAROXABAN 15 MG TABLET PO (09:16)
[2021-11-15] MEDS: OFLOXACIN 0.3% OPHTH SOLN 5 ML BTL 1 DROP LEFT EYE ×4 (09:16→20:03)
[2021-11-15] MEDS: ARTIFICIAL TEARS OPHTH SOLN 15 ML BOTTLE 2 DROP EACH EYE (09:16)
[2021-11-15] MEDS: HYDROcodone/acetaminophen (*CRX) 5-325 MG TABLET 1 TAB PO (09:26)
[2021-11-15 09:31] VITALS: PULSE 78; O2SAT 96
[2021-11-15] MEDS: buPROPion HCL XL (24 HR) 150 MG TABCR 300 MG PO (10:00)
[2021-11-15] MEDS: ATORVASTATIN 40 MG TABLET PO (10:00)
--- NOTE | 2021-11-15 10:15 | P.PNIM_ITS ---
Progress Note: A&P Assessment and Plan (1) Sepsis: Code(s): A41.9 - Sepsis, unspecified organism Status: Acute Assessment and Plan: * Sepsis criteria met on admission with WBC 17.9, Fever >101, Lactic of 2.8, sl ight hypotension 97/63 * Source of infection looks to be bacteremia and UTI * QSofa score 3 * IV hydration x 2L in the ED, continued at 75ml/hr, fluid DC'd at this time * Blood cultures growing group B streptococcus * Urine culture grew klebsiella pnemoniae * IV ceftriaxone (started 11/13/21) day 3 * WBC 10.7 today * Seem to be controlled at this time * Repeat cultures were drawn and show NGTD * Day 6 of antibiotics * Wound culture for leg wound does not indicate any growth (2) Bacteremia: Code(s): R78.81 - Bacteremia Status: Acute Assessment and Plan: * Blood cultures grew group B strep * Antibiotics switched to IV ceftriaxone per susceptibilities * repeat cultures shows NGTD * Will need a line and a total of 10 days of IV antibiotics (3) Cellulitis of right leg: Code(s): L03.115 - Cellulitis of right lower limb Status: Acute Assessment and Plan: * Notable wound to the right lower leg * Continue imipenem and vancomycin per antibiotic stewardship recommendations * Concern for arterial and venous insufficiency * wound present for greater than 3 months without healing. * ABIs showed no significant arterial occlusive disease * venous duplex, no DVT noted * Patient may need to consult with vascular intervention and podiatry * Add morphine for break through pain, continue norco * Complaints of increased pain * Consulted General surgery just for a second opinion, due to the increase of pain * wound culture pending (4) Urinary tract infection: Code(s): N39.0 - Urinary tract infection, site not specified Status: Acute Assessment and Plan: * UA showed cloudy, 2+ blood, positive nitrates, 3+ leukocyte esterase, >75 WBC, WBC clumps present, 4+ bacteria * Urine culture grew Klebsiella pnemoniae * Continue Primaxin, switching to Ceftriaxone * trend output * Trend symptoms (5) Delirium: Code(s): R41.0 - Disorientation, unspecified Status: Acute Assessment and Plan: * Seems to wax and wane, probably from the infection, however pain is definitely playing a role. * Related to sepsis and infection * Reorientation often * She seems to be near her baseline at this time. 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 * PT/OT (7) Generalized weakness: Code(s): R53.1 - Weakness Status: Acute Assessment and Plan: * Related to a combination of the above. Should improve with treatment. (8) Acute kidney injury: Code(s): N17.9 - Acute kidney failure, unspecified Status: Acute Assessment and Plan: * Resolved * BUN/Cr 19/1.10 * Baseline seems to be around 0.9-1.00 * IV fluids for hydration * Trend labs * Avoid nephrotoxic agents. (9) Type 2 diabetes mellitus with hyperglycemia: Code(s):
--- NOTE | 2021-11-15 10:15 | PM.IMPN ---
Progress Note: A&P Assessment and Plan (1) Sepsis: Code(s): A41.9 - Sepsis, unspecified organism Status: Acute Assessment and Plan: Sepsis criteria met on admission with WBC 17.9, Fever >101, Lactic of 2.8, slight hypotension 97/63 Source of infection looks to be bacteremia and UTI QSofa score 3 IV hydration x 2L in the ED, continued at 75ml/hr, fluid DC'd at this time Blood cultures growing group B streptococcus Urine culture grew klebsiella pnemoniae IV ceftriaxone (started 11/13/21) day 3 WBC 10.7 today Seem to be controlled at this time Repeat cultures were drawn and show NGTD Day 6 of antibiotics Wound culture for leg wound does not indicate any growth (2) Bacteremia: Code(s): R78.81 - Bacteremia Status: Acute Assessment and Plan: Blood cultures grew group B strep Antibiotics switched to IV ceftriaxone per susceptibilities repeat cultures shows NGTD Will need a line and a total of 10 days of IV antibiotics (3) Cellulitis of right leg: Code(s): L03.115 - Cellulitis of right lower limb Status: Acute Assessment and Plan: Notable wound to the right lower leg Continue imipenem and vancomycin per antibiotic stewardship recommendations Concern for arterial and venous insufficiency wound present for greater than 3 months without healing. ABIs showed no significant arterial occlusive disease venous duplex, no DVT noted Patient may need to consult with vascular intervention and podiatry Add morphine for break through pain, continue norco Complaints of increased pain Consulted General surgery just for a second opinion, due to the increase of pain wound culture pending (4) Urinary tract infection: Code(s): N39.0 - Urinary tract infection, site not specified Status: Acute Assessment and Plan: UA showed cloudy, 2+ blood, positive nitrates, 3+ leukocyte esterase, >75 WBC, WBC clumps present, 4+ bacteria Urine culture grew Klebsiella pnemoniae Continue Primaxin, switching to Ceftriaxone trend output Trend symptoms (5) Delirium: Code(s): R41.0 - Disorientation, unspecified Status: Acute Assessment and Plan: Seems to wax and wane, probably from the infection, however pain is definitely playing a role. Related to sepsis and infection Reorientation often She seems to be near her baseline at this time. 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 PT/OT (7) Generalized weakness: Code(s): R53.1 - Weakness Status: Acute Assessment and Plan: Related to a combination of the above. Should improve with treatment. (8) Acute kidney injury: Code(s): N17.9 - Acute kidney failure, unspecified Status: Acute Assessment and Plan: Resolved BUN/Cr /.10 Baseline seems to be around 0.9-1.00 IV fluids for hydration Trend labs Avoid nephrotoxic agents. (9) Type 2 diabetes mellitus with hyperglycemia: Code(s): E11.65 - Type 2 diabetes mellitus with hyperglycemia Status: Acute Assessment and Plan: Glucose 148 Initiate sliding scale insulin Accu-Cheks hypoglycemic protocol Hemoglobin A1c 7.2 (10) Persistent atrial fibrillation: Code(s): I48.19 - Other persistent atrial fibrillation Status: Acute Assessment and Plan: HR in 80 Rate controlled on metoprolol Continue rivaroxaban for stroke prophylaxis. DC telemonitor, since she has no acute events (11) Congestive heart failure: Qualifi
--- NOTE | 2021-11-15 10:41 | PCOTNOTE ---
Attempted to see patient this am, however patient refused. Pt reported being too tired at this time stating, Not now.
--- NOTE | 2021-11-15 11:10 | PCOTNOTE ---
Attempted for a second time this am, however patient refused once again. Pt's just arrived for visit. brought patient some belongings and encouraged patient to participate in ADLs, however patient stated, I got it sweetie. I appreciate you trying though. Pt turned to and stated, She keeps trying to get me back at what I was doing before.
[2021-11-15 11:29] LABS: Glucose Point of Care 110 mg/dl (65-105)
[2021-11-15] MEDS: cefTRIAXone 2 GM in SODIUM CHLORIDE 0.9% IV 100 ML IVPB (12:34)
[2021-11-15 16:58] LABS: Glucose Point of Care 256 mg/dl (65-105)
[2021-11-15 16:58] LABS: Glucose Point of Care 252 mg/dl (65-105)
[2021-11-15] MEDS: INSULIN ASPART (*BKC) 100 UNITS/ML SUB-Q (17:27)
[2021-11-15 20:00] VITALS: BP 127/59; PULSE 78; PULSE 81; RESP 20; TEMP 35.8; O2SAT 94; O2SAT 99
[2021-11-15 20:13] VITALS: BP 115/59; BP 98/55; PULSE 78; PULSE 82; RESP 20; TEMP 35.8; O2SAT 88; O2SAT 94
[2021-11-15 20:30] VITALS: PULSE 81; O2SAT 94
[2021-11-15 20:34] LABS: Glucose Point of Care 114 mg/dl (65-105)
[2021-11-16 04:11] VITALS: BP 125/67; PULSE 93; RESP 20; TEMP 36; O2SAT 93
[2021-11-16 05:27] LABS: Basophils Absolute Auto 0.1 K/mm3 (0.0-0.1); Basophils Percent Auto 0.7 % (0.2-1.2); Eosinophils Absolute Auto 0.2 K/mm3 (0-0.3); Eosinophils Percent Auto 1.7 % (0-4.4); Hematocrit 35.5 % (37.0-47.0); Hemoglobin 10.9 g/dL (12.0-15.0); Immature Granulocyte Absolute 0.06 K/mm3 (0.00-0.031); Immature Granulocyte Percent A 0.6 % (0-0.5); Lymphocytes Absolute Auto 1.46 K/mm3 (0.9-3.2); Lymphocytes Percent Auto 14.1 % (18.3-44.2); Mean Corpuscular HGB Conc 30.7 g/dl (32-36); Mean Corpuscular Hemoglobin 31.1 pg (26-34); Mean Corpuscular Volume 101.1 fl (80-100); Mean Platelet Volume 9.6 fl (7.4-10.4); Monocytes Absolute Auto 0.8 K/mm3 (0.1-0.6); Monocytes Percent Auto 7.7 % (2.6-8.5); Neutrophils Absolute Auto 7.8 K/mm3 (1.3-6.7); Neutrophils Percent Auto 75.2 % (45.5-73.1); Platelet Count Result 306 k/mm3 (150-375); Red Blood Count 3.51 M/mm3 (4.2-5.4); Red Cell Distribution Width 15.1 % (11.5-14.5); White Blood Count 10.4 K/mm3 (4.5-10.0)
[2021-11-16 05:44] LABS: Alanine Aminotransferase 18 U/L (4-35); Alkaline Phosphatase 127 U/L (38-126); Anion Gap 6 mmol/L (8-16); Aspartate Amino Transferase 29 U/L (14-36); Bilirubin,Total 0.5 mg/dL (0.2-1.3); Blood Urea Nitrogen 19 mg/dL (7-17); Calcium 8.9 mg/dL (8.4-10.2); Carbon Dioxide 28 mmol/L (22-30); Chloride 105 mmol/L (98-107); Estimated CRCL calculation 55 ml/min; Estimated Glomerular Filt Rate 54; Glucose 135 mg/dL (65-110); Magnesium 2.1 mg/dL (1.6-2.3); Potassium 3.9 mmol/L (3.4-5.0); Sodium 139 mmol/L (137-145)
[2021-11-16 07:43] LABS: Glucose Point of Care 149 mg/dl (65-105)
[2021-11-16] MEDS: FLUTICASONE/SALMETEROL 115-21 MCG INHALER 1 PUFF 2 PUFF INHALATION (08:25)
[2021-11-16] MEDS: buPROPion HCL XL (24 HR) 150 MG TABCR 300 MG PO (09:17)
[2021-11-16] MEDS: RIVAROXABAN 15 MG TABLET PO (09:17)
[2021-11-16] MEDS: valACYclovir HCL 500 MG TABLET 1000 MG PO (09:17)
[2021-11-16] MEDS: ARTIFICIAL TEARS OPHTH SOLN 15 ML BOTTLE 2 DROP EACH EYE (09:18)
[2021-11-16] MEDS: allopurinoL 300 MG TABLET PO (09:18)
[2021-11-16] MEDS: MEMANTINE 10 MG TABLET PO (09:18)
[2021-11-16] MEDS: ATORVASTATIN 40 MG TABLET PO (09:18)
[2021-11-16] MEDS: SILVERGEL (ELTA) 45 ML 1 APPLIC TOPICAL (09:19)
[2021-11-16] MEDS: OFLOXACIN 0.3% OPHTH SOLN 5 ML BTL 1 DROP LEFT EYE ×2 (09:23→13:15)
[2021-11-16] MEDS: POLYMYXIN/TRIMETHOPRIM OPHTH 10 ML DROPS 1 DROP EACH EYE ×2 (09:23→13:15)
[2021-11-16] MEDS: HYDROcodone/acetaminophen (*CRX) 5-325 MG TABLET 1 TAB PO (09:35)
[2021-11-16 09:56] VITALS: PULSE 82
[2021-11-16] MEDS: METOPROLOL SUCCINATE EXT REL 50 MG TABCR PO (09:56)
[2021-11-16 11:14] LABS: Glucose Point of Care 112 mg/dl (65-105)
[2021-11-16] MEDS: cefTRIAXone 2 GM in SODIUM CHLORIDE 0.9% IV 100 ML IVPB (11:57)
--- NOTE | 2021-11-16 12:00 | PM.DS ---
DS: Admitting Diagnosis Discharge Date 11/16/21 12:00 Admitting Diagnosis Bacteremia/UTI/Sepsis/Cellulitis DS: Discharge Diagnosis Discharge Diagnosis (1) Sepsis: Code(s): A41.9 - Sepsis, unspecified organism Status: Acute Assessment and Plan: Sepsis criteria met on admission with WBC 17.9, Fever >101, Lactic of 2.8, slight hypotension 97/63 Source of infection looks to be bacteremia and UTI QSofa score 3 IV hydration x 2L in the ED, continued at 75ml/hr, fluid DC'd at this time Blood cultures growing group B streptococcus Urine culture grew klebsiella pnemoniae IV ceftriaxone (started 11/13/21) day 4, change to PO antibiotics Levaquin 750 Daily WBC 10.7 today Seem to be controlled at this time Repeat cultures were drawn and show NGTD Day 7 of antibiotics Wound culture for leg wound does not indicate any growth (2) Bacteremia: Code(s): R78.81 - Bacteremia Status: Acute Assessment and Plan: Blood cultures grew group B strep Antibiotics switched to IV ceftriaxone per susceptibilities repeat cultures shows NGTD 10 days total antibiotics, change to PO levaquin for discharge (3) Cellulitis of right leg: Code(s): L03.115 - Cellulitis of right lower limb Status: Acute Assessment and Plan: Notable wound to the right lower leg Continue imipenem and vancomycin per antibiotic stewardship recommendations Concern for arterial and venous insufficiency wound present for greater than 3 months without healing. ABIs showed no significant arterial occlusive disease venous duplex, no DVT noted Patient may need to consult with vascular intervention and podiatry Add morphine for break through pain, continue norco Complaints of increased pain Consulted General surgery just for a second opinion, due to the increase of pain wound culture shows no growth (4) Urinary tract infection: Code(s): N39.0 - Urinary tract infection, site not specified Status: Acute Assessment and Plan: UA showed cloudy, 2+ blood, positive nitrates, 3+ leukocyte esterase, >75 WBC, WBC clumps present, 4+ bacteria Urine culture grew Klebsiella pnemoniae Continue Primaxin, switching to Ceftriaxone, change to PO Levaquin trend output Trend symptoms (5) Delirium: Code(s): R41.0 - Disorientation, unspecified Status: Acute Assessment and Plan: Seems to wax and wane, probably from the infection, however pain is definitely playing a role. Related to sepsis and infection Reorientation often She seems to be near her baseline at this time. 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 PT/OT (7) Generalized weakness: Code(s): R53.1 - Weakness Status: Acute Assessment and Plan: Related to a combination of the above. Should improve with treatment. (8) Acute kidney injury: Code(s): N17.9 - Acute kidney failure, unspecified Status: Acute Assessment and Plan: Resolved BUN/Cr 19/1.00 Baseline seems to be around 0.9-1.00 IV fluids for hydration Trend labs Avoid nephrotoxic agents. (9) Type 2 diabetes mellitus with hyperglycemia: Code(s): E11.65 - Type 2 diabetes mellitus with hyperglycemia Status: Acute Assessment and Plan: Glucose 135 Initiate sliding scale insulin Accu-Cheks hypoglycemic protocol Hemoglobin A1c 7.2 (10) Persistent atrial fibrillation: Code(s): I48.19 - Other persistent atrial fibrillation Status: Acute Assessment and Plan
--- NOTE | 2021-11-16 12:00 | P.DS_ITS ---
DS: Admitting Diagnosis Discharge Date 11/16/21 12:00 Admitting Diagnosis Bacteremia/UTI/Sepsis/Cellulitis DS: Discharge Diagnosis Discharge Diagnosis (1) Sepsis: Code(s): A41.9 - Sepsis, unspecified organism Status: Acute Assessment and Plan: * Sepsis criteria met on admission with WBC 17.9, Fever >101, Lactic of 2.8, slight hypotension 97/63 * Source of infection looks to be bacteremia and UTI * QSofa score 3 * IV hydration x 2L in the ED, continued at 75ml/hr, fluid DC'd at this time * Blood cultures growing group B streptococcus * Urine culture grew klebsiella pnemoniae * IV ceftriaxone (started 11/13/21) day 4, change to PO antibiotics Levaquin 750 Daily * WBC 10.7 today * Seem to be controlled at this time * Repeat cultures were drawn and show NGTD * Day 7 of antibiotics * Wound culture for leg wound does not indicate any growth (2) Bacteremia: Code(s): R78.81 - Bacteremia Status: Acute Assessment and Plan: * Blood cultures grew group B strep * Antibiotics switched to IV ceftriaxone per susceptibilities * repeat cultures shows NGTD * 10 days total antibiotics, change to PO levaquin for discharge (3) Cellulitis of right leg: Code(s): L03.115 - Cellulitis of right lower limb Status: Acute Assessment and Plan: * Notable wound to the right lower leg * Continue imipenem and vancomycin per antibiotic stewardship recommendations * Concern for arterial and venous insufficiency * wound present for greater than 3 months without healing. * ABIs showed no significant arterial occlusive disease * venous duplex, no DVT noted * Patient may need to consult with vascular intervention and podiatry * Add morphine for break through pain, continue norco * Complaints of increased pain * Consulted General surgery just for a second opinion, due to the increase of pain * wound culture shows no growth (4) Urinary tract infection: Code(s): N39.0 - Urinary tract infection, site not specified Status: Acute Assessment and Plan: * UA showed cloudy, 2+ blood, positive nitrates, 3+ leukocyte esterase, >75 WBC, WBC clumps present, 4+ bacteria * Urine culture grew Klebsiella pnemoniae * Continue Primaxin, switching to Ceftriaxone, change to PO Levaquin * trend output * Trend symptoms (5) Delirium: Code(s): R41.0 - Disorientation, unspecified Status: Acute Assessment and Plan: * Seems to wax and wane, probably from the infection, however pain is definitely playing a role. * Related to sepsis and infection * Reorientation often * She seems to be near her baseline at this time. 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 * PT/OT (7) Generalized weakness: Code(s): R53.1 - Weakness Status: Acute Assessment and Plan: * Related to a combination of the above. Should improve with treatment. (8) Acute kidney injury: Code(s): N17.9 - Acute kidney failure, unspecified Status: Acute Assessment and Plan: * Resolved * BUN/Cr 19/1.00 * Base
[2021-11-16 13:12] LABS: EDCOVIDSCREEN Negative (Negative)
== END 2021-11-16 15:06 | DRG 872 ==
LOC: ANHED 10:00 → ANHIMU 10:56 → ANH2MED 11-12 15:21
PROVIDERS: Nurse Practitioner Family; Physician Assistant; Admitting Provider Family Medicine; Emergency Provider General Practice; PCP Family Medicine; Visit Provider Nurse Practitioner
DX: A41.9 Sepsis, unspecified organism (principal); I48.19 Other persistent atrial fibrillation; L03.115 Cellulitis of right lower limb; N39.0 Urinary tract infection, site not specified; N17.9 Acute kidney failure, unspecified; I50.32 Chronic diastolic (congestive) heart failure; R65.20 Severe sepsis without septic shock; B96.1 Klebsiella pneumoniae [K. pneumoniae] as the cause of diseases classified elsewhere; B95.1 Streptococcus, group B, as the cause of diseases classified elsewhere; Z20.822 Contact with and (suspected) exposure to COVID-19; I11.0 Hypertensive heart disease with heart failure; E86.0 Dehydration; R90.89 Other abnormal findings on diagnostic imaging of central nervous system; E11.65 Type 2 diabetes mellitus with hyperglycemia; E78.5 Hyperlipidemia, unspecified; F03.90 Unspecified dementia, unspecified severity, without behavioral disturbance, psychotic disturbance, mood disturbance, and anxiety; J45.909 Unspecified asthma, uncomplicated; R41.0 Disorientation, unspecified; Z79.01 Long term (current) use of anticoagulants; Z98.49 Cataract extraction status, unspecified eye; Z98.84 Bariatric surgery status; Z90.710 Acquired absence of both cervix and uterus; Z87.891 Personal history of nicotine dependence
CPT/HCPCS: 36415; 36600; 51701; 70450; 71045; 73590; 80053; 80202; 81001; 82140; 82375; 82550; 82805; 82948; 83036; 83050; 83605; 83735; 84443; 84484; 85025; 85610; 85730; 86140; 87040; 87070; 87077; 87086; 87088; 87186; 87205; 87426; 87804; 93005; 93306; 93922; 93970; 94640; 96361; 96365; 96367; 96375; 96376; 97110; 97116; 97161; 97165; 97530; 97535; 99285; A9270; C9803; G0378; J0131; J0696; J0743; J1815; J2270; J3370; J7030; J7040; Q9957; U0003; U0005

== ENCOUNTER 2021-12-06 17:03 | Inpatient (IN) | payer MEDICARE, SELFPAY ==
[2021-12-06] VITALS (10 sets, daily range): BP systolic 89–119; BP diastolic 41–76; PULSE 98–113; RESP 18–35; TEMP 36.1–39.1; O2SAT 88–100; BMI 32.6
--- NOTE | ~2021-12-06 | XR_ITS ---
EXAMINATION: XR chest 1V DATE: 12/06/2021 18:10 INDICATION: Fever. Transient alteration of awareness. TECHNIQUE: A single frontal view of the chest was obtained. COMPARISON: Chest single view 11/10/2021 FINDINGS: There is a small left pleural effusion. There are airspace opacities at left lung base. No pneumothorax. Cardiomegaly is noted. IMPRESSION: 1. Stable small left pleural effusion. 2. Stable airspace opacities at left lung base, consistent with atelectasis versus pneumonia. 3. Cardiomegaly. Reviewed, dictated and finalized at location A. IMPRESSION: 1. Stable small left pleural effusion. 2. Stable airspace opacities at left lung base, consistent with atelectasis keegan selene pneumonia. 3. Cardiomegaly.
--- NOTE | ~2021-12-06 | MR_ITS ---
EXAMINATION: MR brain/brain stem wo con DATE: 12/07/2021 14:03 INDICATION: Altered mental status. TECHNIQUE: Magnetic resonance imaging (MRI) of the brain and brainstem was performed without intraven ous contrast. Sequences included sagittal and axial T1-weighted FSE, axial diffusion-weighted FS EPI, axial T2*-weighted GRE, axial T2-weighted FLAIR Propeller, and axial T2-weighted Propeller. Apparent diffusion coefficient (ADC) maps were created. COMPARISON: Head CT 12/06/2021 FINDINGS: There are scattered areas of nonspecific increased T2-weighted signal intensity in the cere bral white matter. There are old infarcts in the left thalamus and left lentiform nucleus. There is n o intracranial hemorrhage, acute infarction, or abnormal intracranial mass lesion. The ventricles are normal in size. There are likely changes of ocular lens replacement surgeries. The paranasal sinuses are clear. The mastoid air cells are normal. IMPRESSION: 1. 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 2. Moderate nonspecific cerebral white matter disease, which likely represents chronic small vessel i schemic disease. Reviewed, dictated and finalized at location A. IMPRESSION: 1. 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 2. Moderate nonspecific cerebral white matter disease, which likely represents chronic small vessel ischemic disease.
--- NOTE | ~2021-12-06 | CT_ITS ---
EXAMINATION: CT brain wo con DATE: 12/06/2021 18:24 INDICATION: Altered mental status. TECHNIQUE: Computed tomography (CT) of the head was performed without intravenous contrast. The mA wa s adjusted according to patient size. Iterative reconstruction technique was employed. The dose-lengt h product was 605.33 mGy-cm. COMPARISON: Head CT 11/10/2021 FINDINGS: There are scattered areas of low attenuation in the cerebral white matter. There is an old infarct in left thalamus. There is an old infarct in left lentiform nucleus. There is no intracranial hemorrhage, acute infarction, or abnormal intracranial mass lesion. The ventricles are normal in siz e. There are likely changes of ocular lens replacement surgeries. There is mild mucosal thickening in the ethmoid sinuses. The mastoid air cells are normal. IMPRESSION: 1. 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 2. Stable moderate nonspecific cerebral white matter disease, which likely represents chronic small v essel ischemic disease. Reviewed, dictated and finalized at location A. IMPRESSION: 1. 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 2. Stable moderate nonspecific cerebral white matter disease, which likely repr esents chronic small vessel ischemic disease.
--- NOTE | ~2021-12-06 | XR_ITS ---
EXAMINATION: XR shoulder RT min 2V DATE: 12/06/2021 18:10 INDICATION: Right shoulder pain. Fall. TECHNIQUE: 3 views of right shoulder were obtained. COMPARISON: None. FINDINGS: Bone alignment is normal. No fracture. The glenohumeral joint is not well profiled. There i s mild acromioclavicular joint osteoarthritis. IMPRESSION: 1. No fracture. Reviewed, dictated and finalized at location A. IMPRESSION: 1. No fracture.
--- NOTE | ~2021-12-06 | XR_ITS ---
EXAMINATION: XR hip BI 2V w AP pelvis DATE: 12/06/2021 18:10 INDICATION: Hip pain. TECHNIQUE: An anteroposterior pelvis and 2 views of each hip were obtained. COMPARISON: None. FINDINGS: Bone alignment is normal. No fracture. Osteitis pubis is noted. The hip joint spaces are no rmal. IMPRESSION: 1. No fracture. Reviewed, dictated and finalized at location A. IMPRESSION: 1. No fracture.
--- NOTE | ~2021-12-06 | CT_ITS ---
EXAMINATION: CT abdomen pelvis w con DATE: 12/06/2021 20:23 INDICATION: Perinephric hematoma. TECHNIQUE: Computed tomography (CT) of the abdomen and pelvis was performed with 100 mL Omnipaque 350 intravenous contrast. Automated exposure control and iterative reconstruction technique were employe d. The dose-length product was 1469.75 mGy-cm. COMPARISON: CT lumbar spine 12/06/2021 FINDINGS: The visualized portions of the lung bases demonstrate a chronic small left pleural effusion with pleural thickening. There is rounded atelectasis in peripheral left lower lobe and lingula. Car diomegaly is noted. There are coronary artery calcifications. No pericardial effusion. There is a sma ll sliding hiatal hernia. There are surgical changes of the stomach. There are cysts in the liver oneyda suring up to 9 mm. The spleen, pancreas, and adrenal glands are normal. There is cortical thinning of the kidneys. There is a 10 mm cyst in right kidney. 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 There is asymmetric fat stranding in left retroperitoneum. There are no dilated loops of bowel. The appendix is not visualized. There are no pathologically enla rged lymph nodes. There is no free intraperitoneal fluid. There is severe lower lumbar spondylosis. IMPRESSION: 1. 6.4 cm mass of abnormal contrast enhancement in left kidney. The differential diagnosis includes p yelonephritis and malignancy. Repeat abdomen CT with contrast in a few weeks after treatment for pyel onephritis is recommended. 2. Chronic small left pleural effusion with rounded atelectasis in lingula and left lower lobe. Reviewed, dictated and finalized at location A. IMPRESSION: 1. 6.4 cm mass of abnormal contrast enhancement in left kidney. The differentia l diagnosis includes pyelonephritis and malignancy. Repeat abdomen CT with cont rast in a few weeks after treatment for pyelonephritis is recommended. 2. Chronic small left pleural effusion with rounded atelectasis in lingula and left lower lobe.
--- NOTE | ~2021-12-06 | CT_ITS ---
EXAMINATION: CT thoracic lumbar wo con DATE: 12/06/2021 18:25 INDICATION: Back pain. Fall. TECHNIQUE: Computed tomography (CT) of the thoracic and lumbar spine was performed without intravenou s contrast. Automated exposure control and iterative reconstruction technique were employed. The dose -length product was 2140.60 mGy-cm. COMPARISON: None FINDINGS: CT THORACIC SPINE: There is a chronic small left pleural effusion with pleural thickening. There are airspace opacities in left lower lobe and lingula abutting the pleura, consistent with rounded atelec tasis. Cardiomegaly is noted. No pericardial effusion. There is 15 degrees dextroscoliosis of thoraci c spine. Vertebral body heights are normal. There is a benign bone island in T7 vertebral body. There is mildly decreased disc height at multiple levels. There is moderately decreased disc height from T 7-T8 through T10-T11. There is multilevel mild facet joint osteoarthritis. At T2-T3, there is ankylos is of the facet joints. There is mild right neural foraminal stenosis at T3-T4, T4-T5, T5-T6. There i s mild left neural foraminal stenosis at T2-T3. No central canal stenosis. CT LUMBAR SPINE: Bone alignment is normal. Vertebral body heights are normal. There is mildly decreas ed disc height at L3-L4 and moderately decreased disc height at L5-S1 with endplate remodeling. There is asymmetric thickening of left kidney with fat stranding in left perinephric space. The following disc levels are specifically discussed: L1-L2: The disc does not extend beyond the endplate margin. There is mild bilateral facet joint osteo arthritis. There is no neural foraminal stenosis. There is no central canal stenosis. L2-L3: The disc is bulging. There is mild bilateral facet joint osteoarthritis. There is mild bilater al neural foraminal stenosis. There is no central canal stenosis. L3-L4: The disc is bulging. There is severe bilateral facet joint osteoarthritis. There is mild bilat eral neural foraminal stenosis. There is mild central canal stenosis. L4-L5: The disc is bulging. There is severe bilateral facet joint osteoarthritis. There is mild bilat eral neural foraminal stenosis. There is mild central canal stenosis. L5-S1: The disc is bulging. There is severe bilateral facet joint osteoarthritis. There is mild right and moderate left neural foraminal stenosis. There is mild central canal stenosis. IMPRESSION: 1. Asymmetric thickening of left kidney with fat stranding in left perinephric space suspicious for s mall perinephric hematoma. 2. No fracture. 3. Moderate thoracic and lumbar spondylosis. 4. Thoracic dextroscoliosis. 5. Chronic small left pleural effusion with rounded atelectasis in left lower lobe and lingula. Reviewed, dictated and finalized at location A. IMPRESSION: 1. Asymmetric thickening of left kidney with fat stranding in left perinephric space suspicious for small perinephric hematoma. 2. No fracture. 3. Moderate thoracic and lumbar spondylosis. 4. Thoracic dextroscoliosis. 5. Chronic small left pleural effusion with rounded atelectasis in left lower l obe and lingula.
--- NOTE | ~2021-12-06 | CT_ITS ---
EXAMINATION: CT cervical spine wo con DATE: 12/06/2021 18:24 INDICATION: Neck pain. TECHNIQUE: Computed tomography (CT) of the cervical spine was performed without intravenous contrast. Automated exposure control and iterative reconstruction technique were employed. The dose-length pro duct was 490.70 mGy-cm. COMPARISON: None FINDINGS: There is 8 degrees dextrocurvature of cervical spine. There is kyphosis of cervical spine. Vertebral body heights are normal. There is mildly decreased disc height at C4-C5 and severely decrea sed disc height at C5-C6 and C6-C7. The following disc levels are specifically discussed: C2-C3: There is no uncovertebral joint osteoarthritis. There is mild right and moderate left facet ceci int osteoarthritis. There is no neural foraminal stenosis. There is no central canal stenosis. C3-C4: There is no uncovertebral joint osteoarthritis. There is mild left facet joint osteoarthritis. There is no neural foraminal stenosis. There is no central canal stenosis. C4-C5: There is mild right uncovertebral joint osteoarthritis. There is no facet joint osteoarthritis . There is no neural foraminal stenosis. There is no central canal stenosis. C5-C6: There is severe bilateral uncovertebral joint osteoarthritis. There is mild bilateral facet ceci int osteoarthritis. There is mild left neural foraminal stenosis. There is mild central canal stenosi s. C6-C7: There is severe bilateral uncovertebral joint osteoarthritis. There is moderate right and nate re left facet joint osteoarthritis. There is mild left neural foraminal stenosis. There is no central canal stenosis. C7-T1: There is no uncovertebral joint osteoarthritis. There is moderate right and severe left facet joint osteoarthritis. There is no neural foraminal stenosis. There is no central canal stenosis. IMPRESSION: 1. No fracture. 2. Severe cervical spondylosis. Reviewed, dictated and finalized at location A.
--- NOTE | 2021-12-06 17:15 | ECG_ITS ---
Measurements Intervals [place] Rate: 110 P: UT: 0 QRS: 87 QRSD: 154 T: 20 QT: 349 QTc: 472 Interpretive Statements ATRIAL FIBRILLATION WITH RAPID VENTRICULAR RESPONSE RIGHT BUNDLE BRANCH BLOCK [120+ ms QRS DURATION, UPRIGHT V1, 40+ ms S IN I/aVL/V4/V5/V6] ST DEPRESSION, CONSIDER SUBENDOCARDIAL INJURY [0.1+ mV ST DEPRESSION] ABNORMAL ECG COMPARED TO ECG 11/10/2021 08:35:13 NO SIGNIFICANT CHANGES Electronically Signed On 12-06-2021 17:33:36 CDT by Aung Novak M.D.
[2021-12-06 17:18] LABS: Glucose Point of Care 119 mg/dl (65-105)
--- NOTE | 2021-12-06 17:33 | ED.AMS ---
HPI - Altered Mental Status General Chief Complaint: Altered Mental Status <Siena Gonzalez PA-C - Last Filed: 12/06/21 21:00> Stated Complaint: altered LOC <Siena Gonzalez PA-C - Last Filed: 12/06/21 21:00> Time Seen by Provider: 12/06/21 17:14 <Siena Gonzalez PA-C - Last Filed: 12/06/21 21:00> Source: patient and family <Siena Gonzalez PA-C - Last Filed: 12/06/21 21:00> Mode of arrival: EMS <Siena Gonzalez PA-C - Last Filed: 12/06/21 21:00> Limitations: altered mental status <Siena Gonzalez PA-C - Last Filed: 12/06/21 21:00> History of Present Illness HPI narrative: This is a 76-year-old female that presents to the emergency department for altered mental status. Reportedly patient had a fall last night out of bed. Today she was noted to be more confused than usual. She was recently admitted here due to bacteremia and UTI. She also has a wound to the right lower extremity for which she is following with wound care. Patient reports some right shoulder pain and back pain after her fall. Patient is usually able to ambulate with a walker. Lives in an independent living community with her . Patient noted to be febrile in the ED. Patient denies chest pain, shortness of breath, abdominal pain, vomiting, or dysuria. <Siena Gonzalez PA-C - Last Filed: 12/06/21 21:00> Related Data Home Medications: Home Medications Medication Instructions Recorded Confirmed Xarelto 15 mg PO DAILY 11/10/21 11/10/21 artificial tears solution 2 drp OPHTHALMIC (EYE) DAILY 11/10/21 11/10/21 galantamine 8 mg PO QAM 11/10/21 11/10/21 ofloxacin 1 drp LEFT EYE QID 11/10/21 11/10/21 polymyxin B sulf-trimethoprim 1 drp OPHTHALMIC (EYE) QID 11/10/21 11/10/21 valacyclovir [Valtrex] 1,000 mg PO DAILY 11/10/21 11/10/21 fluticasone furoate-vilanterol INHALATION 12/06/21 [Breo Ellipta] galantamine mg PO 12/06/21 <Siena Gonzalez PA-C - Last Filed: 12/06/21 21:00> Allergies/Adverse Reactions: Allergies Allergy/AdvReac Type Severity Reaction Status Date / Time No Known Allergies Allergy Verified 12/06/21 19:40 <Siena Gonzalez PA-C - Last Filed: 12/06/21 21:00> Review of Systems Review of Systems: CONSTITUTIONAL: Reports fever CARDIOVASCULAR: Denies chest pain RESPIRATORY: Denies dyspnea. GASTROINTESTINAL: Denies abdominal pain, vomiting GENITOURINARY: Denies dysuria or hematuria. MUSCULOSKELETAL: Reports back pain, joint pain, and myalgia. NEUROLOGIC: Reports weakness. <Siena Gonzalez PA-C - Last Filed: 12/06/21 21:00> All systems reviewed & are unremarkable except as noted in HPI and below <Siena Gonzalez PA-C - Last Filed: 12/06/21 21:00> [facility] Past Medical History Medical History: Medical History (Updated 12/06/21 @ 18:47 by Siena Gonzalez PA-C) Cognitive decline Congestive heart failure Current use of intermediate anticoagulation Essential (primary) hypertension Gout Hyperlipidemia Mild intermittent asthma without complication Persistent atrial fibrillation Type 2 diabetes mellitus without complication, without long-term current use of insulin <Siena Gonzalez PA-C - Last Filed: 12/06/21 21:00> Surgical History Surgical History: Surgical History (Updated 11/10/21 @ 14:43 by Yessenia Prieto PA-C) History of cataract extraction History of colonoscopy with polypectomy History of gastric bypass History of hysterectomy History of tonsillectomy <Siena Gonzalez PA-C - Last Filed: 12/06/21 21:00> Family History Family History: Family History Mother Hypertension Father Family history of cardiovascular disease <Siena Gonzalez PA-C - Last Filed: 12/06/21 21:00> Social History Social History: Social History (Updated 11/10/21 @ 20:17 by Yessenia G. Gerling, PA-C) Social History: Surrogate decision maker: Veronica Patel, daughter. Code status: Full code. Smoking pa
[2021-12-06] MEDS: SODIUM CHLORIDE 0.9% IV 500 ML 999 ML IV CONT ×2 (17:41→18:49)
[2021-12-06 17:50] LABS: Hematocrit 38.8 % (37.0-47.0); Hemoglobin 12.3 g/dL (12.0-15.0); Mean Corpuscular HGB Conc 31.7 g/dl (32-36); Mean Corpuscular Hemoglobin 31.5 pg (26-34); Mean Corpuscular Volume 99.2 fl (80-100); Mean Platelet Volume 10.2 fl (7.4-10.4); Platelet Count Result 213 k/mm3 (150-375); Red Blood Count 3.91 M/mm3 (4.2-5.4); Red Cell Distribution Width 16.6 % (11.5-14.5); White Blood Count 16.8 K/mm3 (4.5-10.0)
[2021-12-06 18:01] LABS: INR 2.4; Partial Thromboplastin Time 42.7 SECONDS (22.3-36.8); Prothrombin Time 25.5 Seconds (11.1-14.7)
[2021-12-06 18:04] LABS: Lactic Acid Reflex 2.3 mmol/L (0.7-2.1)
[2021-12-06 18:10] LABS: Alanine Aminotransferase 23 U/L (4-35); Albumin Level 3.6 g/dL (3.5-5.1); Alkaline Phosphatase 136 U/L (38-126); Anion Gap 7 mmol/L (8-16); Aspartate Amino Transferase 56 U/L (14-36); Bilirubin,Total 1.4 mg/dL (0.2-1.3); Blood Urea Nitrogen 42 mg/dL (7-17); Calcium 9.1 mg/dL (8.4-10.2); Carbon Dioxide 34 mmol/L (22-30); Chloride 97 mmol/L (98-107); Estimated CRCL calculation 43 ml/min; Estimated Glomerular Filt Rate 37; Glucose 129 mg/dL (65-110); Lipase 46 U/L (23-300); Potassium 3.7 mmol/L (3.4-5.0); Sodium 138 mmol/L (137-145)
[2021-12-06 18:12] LABS: Add Urine Microscopic? YES; Appearance Urine Turbid (Clear); Bacteria Urine 2+ /hpf; Bilirubin Urine Negative (Negative); Blood Urine 3+ (Negative); Color Urine Yellow (Yellow); Glucose Urine UA Negative (Negative); Ketones Urine Negative (Negative); Leukocyte Esterase Ur 3+ LEU/UL (Negative); Nitrate Urine Negative (Negative); Protein Urine 2+ mg/dL (Negative); RBC Urine 51-75 /hpf (0-2); Specific Grav Ur 1.014 (1.001-1.035); Squamous Epithelial Cell Urine Few /hpf (Few); Urobilinogen Urine Negative mg/dL (<2.0); WBC Urine >75 /hpf
[2021-12-06 18:20] LABS: Band Neutrophils Percent 6 % (0-6); Lymphocytes Absolute Manual 0.67 K/mm3 (1.1-4.5); Monocytes Absolute Manual 0.67 K/mm3 (0.1-0.90); Monocytes Percent Manual 4 % (3-9); Neutrophils Absolute Manual 15.45 K/mm3 (1.7-7.2); Neutrophils Percent Manual 86 % (46-73); Total Cells Counted 100
[2021-12-06 18:21] LABS: Anisocytosis 2+ (NORMAL); Platelet Estimate Adequate (Adequate)
[2021-12-06 18:41] LABS: CRP 30.6 mg/dL (<1.0)
[2021-12-06 20:48] LABS: Reflex Lactic Acid Yes or No Add Lactic
[2021-12-06] MEDS: SODIUM CHLORIDE 0.9% IV 1,000 ML 500 ML IV CONT (21:05)
[2021-12-06 21:47] LABS: Lactic Acid 1.8 mmol/L (0.7-2.1)
[2021-12-06 22:07] LABS: SARS-CoV-2 RNA PCR Negative
--- NOTE | 2021-12-06 22:12 | PM.IMHP ---
H&P: HPI History of Present Illness Date/Time: 12/06/21 22:12 Chief Complaint: Altered mental status Narrative: This is a 76-year-old female with past medical history significant for atrial fibrillation, hypertension, chronic kidney disease, chronic leg wound type 2 diabetes mellitus, hyperlipidemia, gout. Patient just recently treated for urinary tract infection and bacteremia discharge home however patient was brought in today after she had 2 episodes of rolling out of bed and falling altered mental status with confusion and delirium. At the time of my visit patient was more awake and alert and was able to give me some history daughters are at bedside which help with history taking as well. Patient denied any nausea, vomiting, pain or burning with urination, however she had abdominal pain she denied any fevers, rigors, chills ,she has had some chronic diarrhea now. In the emergency room patient was found to have a urinalysis with numerous WBCs a chemistry panel showed a creatinine of 1.6. A CT of abdomen and pelvis showed left kidney mass as well. Patient is been admitted for further evaluation management and treatment. Review of Systems Review of Systems: Altered mental status falling out of bed. Constitutional: Constitutional: Denies chills, Denies fever(s), Reports lethargy, Denies night sweats, Reports poor appetite and Reports weakness Eyes: Eyes: Reports eye discharge (Left eye) ENT: Denies dysphagia, Denies vertigo, Denies dizziness, Denies nasal congestion, Denies nasal discharge, Denies nasal obstruction and Denies odynophagia Cardiovascular: Cardiovascular: Denies chest pain with activity, Denies edema, Reports leg ulcers, Denies leg edema, Denies lightheadedness, Denies radiating jaw, neck or arm pain, Denies palpitations and Denies dyspnea on exertion Respiratory: Respiratory: Denies change in phlegm color, Denies cough, Denies excessive phlegm production, Denies dyspnea and Denies wheezing Gastrointestinal: Gastrointestinal: Denies dyspepsia, Denies heartburn, Reports diarrhea, Denies nausea and Denies vomiting Genitourinary: Genitourinary: Denies dysuria Musculoskeletal: Musculoskeletal: Reports muscle weakness Integumentary/Breasts: Skin/Breast: Reports skin ulcer Neurologic: Reports confusion, Denies vertigo, Denies dizziness, Denies focal weakness and Denies Sensory deficit (Neuro) Psychiatric: Psychiatric: Reports no additional psychiatric complaints and Reports as per HPI Endocrine: Endocrine: Denies cold intolerance, Denies heat intolerance, Denies polydipsia and Denies palpitations Hematologic/Lymphatic: Hematologic/Lymphatic: Reports no additional hematologic/lymphatic complaints and Reports as per HPI Allergic/Immunologic: Allergic/Immunologic: Reports no additional allergic/immunologic complaints and Reports as per HPI COUNT INCLUDES THE [facility] Past Medical History Medical History (Updated 12/06/21 @ 18:47 by Siena Gonzalez PA-C) Cognitive decline Congestive heart failure Current use of skilled nursing anticoagulation Essential (primary) hypertension Gout Hyperlipidemia Mild intermittent asthma without complication Persistent atrial fibrillation Type 2 diabetes mellitus without complication, without long-term current use of insulin Surgical History Surgical History (Updated 11/10/21 @ 14:43 by Yessenia Prieto PA-C) History of cataract extraction History of colonoscopy with polypectomy History of gastric bypass History of hysterectomy History of tonsillectomy Family History Family History Mother Hypertension Father Family history of cardiovascular disease Social History Social History (Updated 11/10/21 @ 20:17 by Yessenia Prieto PA-C) Social History: Surrogate decision maker: Veronica Patel, daughter. Code status: Full code. Smoking packs per day: 0.5 Smoking cigarettes per day: 10.0 Years smoked: 20 Smoking pack-years: 10.00 Sm
--- NOTE | 2021-12-06 23:20 | ADMGEN ---
This patient, Dodie Duong, was admitted to IMU Room 214-01. Patient/family oriented to hospital policies and general routines including ID bracelet, bed and alarms, visiting hours, pain management, procedures, bathroom and other care routines, personal items, smoking policy, room service/diet, and visiting hours. Information on how to activate the Rapid Response Team has been discussed. Patient/Family are encouraged to report perceived risks to care and to ask questions if they do not understand what they are told or what they should do.
[2021-12-07] VITALS (14 sets, daily range): BP systolic 114–128; BP diastolic 52–66; PULSE 77–132; RESP 16–34; TEMP 35.6–36.6; O2SAT 90–100
[2021-12-07] MEDS: SODIUM CHLORIDE 0.9% IV 1,000 ML 999 ML IV CONT (01:31)
[2021-12-07] MEDS: FLUTICASONE/SALMETEROL 115-21 MCG INHALER 1 PUFF 2 PUFF INHALATION ×2 (07:54→19:48)
[2021-12-07] MEDS: allopurinoL 300 MG TABLET PO (09:16)
[2021-12-07] MEDS: POLYMYXIN/TRIMETHOPRIM OPHTH 10 ML DROPS 1 DROP EACH EYE ×4 (09:16→21:05)
[2021-12-07] MEDS: buPROPion HCL XL (24 HR) 150 MG TABCR 300 MG PO (09:16)
[2021-12-07] MEDS: valACYclovir HCL 500 MG TABLET 1000 MG PO (09:16)
[2021-12-07] MEDS: ARTIFICIAL TEARS OPHTH SOLN 15 ML BOTTLE 2 DROP EACH EYE (09:16)
[2021-12-07] MEDS: OFLOXACIN 0.3% OPHTH SOLN 5 ML BTL 1 DROP LEFT EYE ×4 (09:16→21:05)
[2021-12-07] MEDS: ATORVASTATIN 40 MG TABLET PO (09:16)
[2021-12-07] MEDS: MEMANTINE 10 MG TABLET PO ×2 (09:16→16:19)
--- NOTE | 2021-12-07 09:46 | PHAR ---
HOME MED: BUMANATE 5% EYE DROPS - INSTILL ONE DROP IN THE LEFT EYE EVERY 3 HOURS WHILE AWAKE. VERIFIED BY PHARMACY.
--- NOTE | 2021-12-07 12:32 | PC.NURSE ---
Patient's daughter states that patient is allergic to latex not lasix as previously documented. Adjusted allergy list accordingly.
[2021-12-07] MEDS: SILVERGEL (ELTA) 45 ML 1 APPLIC TOPICAL (12:54)
[2021-12-07] MEDS: LORazepam INJ (*CRX) 2 MG/ML VIAL 1 MG IV PUSH (13:19)
--- NOTE | 2021-12-07 16:04 | PC.NURSE ---
Pt received from IMU. Patient oriented to the room.
--- NOTE | 2021-12-07 16:10 | PC.NURSE ---
This patient, Dodie Duong, was transferred to [facility] on 12/07/21 at 1600. Personal belongings sent with patient. Report given to Jewell GRAVES. Appropriate documentation sent with patient.
[2021-12-07] MEDS: RIVAROXABAN 15 MG TABLET PO (16:19)
--- NOTE | 2021-12-07 16:26 | PM.IMPN ---
Progress Note: A&P Assessment and Plan (1) Sepsis: Qualifiers: Sepsis acute organ dysfunction status: without acute organ dysfunction Sepsis type: sepsis due to unspecified organism Qualified Code(s): A41.9 - Sepsis, unspecified organism Code(s): A41.9 - Sepsis, unspecified organism Status: Acute Assessment and Plan: Secondary to UTI Early goal directed therapy ongoing. 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 (2) Acute UTI: Code(s): N39.0 - Urinary tract infection, site not specified Status: Acute Assessment and Plan: Currently on Zosyn Await urine cultures identification sensitivity Deescalate antibiotics as needed (3) NANCY (acute kidney injury): Code(s): N17.9 - Acute kidney failure, unspecified Status: Acute Assessment and Plan: Likely to be pre renal Continue IV fluids Repeat BMP in a.m. Continue to monitor BUN and creatinine Holding torsemide (4) Persistent atrial fibrillation: Code(s): I48.19 - Other persistent atrial fibrillation Status: Acute Assessment and Plan: On anticoagulation Rate controlled (5) Type 2 diabetes mellitus with hyperglycemia: Code(s): E11.65 - Type 2 diabetes mellitus with hyperglycemia Status: Acute Assessment and Plan: Apparently controlled with diet only as patient on no medications seemingly (6) Generalized weakness: Code(s): R53.1 - Weakness Status: Acute Assessment and Plan: Likely secondary to acute illness PT OT when clinically able (7) Idiopathic chronic gout, unspecified site, without tophus (tophi): Code(s): M1A.00X0 - Idiopathic chronic gout, unspecified site, without tophus (tophi) Status: Acute Assessment and Plan: Continue allopurinol Continue to monitor (8) Delirium: Code(s): R41.0 - Disorientation, unspecified Status: Acute Assessment and Plan: Likely secondary to acute illness. Supportive care CT of the head with no acute abnormalities Subjective Date/time seen: 12/07/21 16:26 Chief Complaint: Altered mental status HPI Narrative: This is a 76-year-old female with past medical history significant for atrial fibrillation, hypertension, chronic kidney disease, chronic leg wound type 2 diabetes mellitus, hyperlipidemia, gout. Patient just recently treated for urinary tract infection and bacteremia discharge home however patient was brought in today after she had 2 episodes of rolling out of bed and falling altered mental status with confusion and delirium. At the time of my visit patient was more awake and alert and was able to give me some history daughters are at bedside which help with history taking as well. Patient denied any nausea, vomiting, pain or burning with urination, however she had abdominal pain she denied any fevers, rigors, chills ,she has had some chronic diarrhea now. In the emergency room patient was found to have a urinalysis with numerous WBCs a chemistry panel showed a creatinine of 1.6. A CT of abdomen and pelvis showed left kidney mass as well. Patient is been admitted for further evaluation management and treatment. 12/07/2021 Interval history: patient wi
[2021-12-07] MEDS: METOPROLOL SUCCINATE EXT REL 50 MG TABCR PO (16:46)
[2021-12-08] VITALS (17 sets, daily range): BP systolic 105–136; BP diastolic 51–82; PULSE 73–105; RESP 16–28; TEMP 35.8–37.2; O2SAT 93–99
[2021-12-08 05:28] LABS: Anion Gap 7 mmol/L (8-16); Blood Urea Nitrogen 36 mg/dL (7-17); Calcium 8.7 mg/dL (8.4-10.2); Carbon Dioxide 29 mmol/L (22-30); Chloride 103 mmol/L (98-107); Estimated CRCL calculation 45 ml/min; Estimated Glomerular Filt Rate 44; Glucose 121 mg/dL (65-110); Potassium 3.6 mmol/L (3.4-5.0); Sodium 139 mmol/L (137-145)
[2021-12-08 06:53] LABS: Hematocrit 33.9 % (37.0-47.0); Hemoglobin 10.3 g/dL (12.0-15.0); Mean Corpuscular HGB Conc 30.4 g/dl (32-36); Mean Corpuscular Hemoglobin 30.7 pg (26-34); Mean Corpuscular Volume 101.2 fl (80-100); Mean Platelet Volume 11.8 fl (7.4-10.4); Platelet Count Result 55 k/mm3 (150-375); Red Blood Count 3.35 M/mm3 (4.2-5.4); Red Cell Distribution Width 16.3 % (11.5-14.5); White Blood Count 11.7 K/mm3 (4.5-10.0)
[2021-12-08] MEDS: valACYclovir HCL 500 MG TABLET 1000 MG PO (08:13)
[2021-12-08] MEDS: OFLOXACIN 0.3% OPHTH SOLN 5 ML BTL 1 DROP LEFT EYE ×4 (08:14→20:03)
[2021-12-08] MEDS: POLYMYXIN/TRIMETHOPRIM OPHTH 10 ML DROPS 1 DROP EACH EYE ×4 (08:14→20:03)
[2021-12-08] MEDS: SILVERGEL (ELTA) 45 ML 1 APPLIC TOPICAL (08:14)
[2021-12-08] MEDS: METOPROLOL SUCCINATE EXT REL 50 MG TABCR PO (08:15)
[2021-12-08] MEDS: allopurinoL 300 MG TABLET PO (08:16)
[2021-12-08] MEDS: ARTIFICIAL TEARS OPHTH SOLN 15 ML BOTTLE 2 DROP EACH EYE (08:16)
[2021-12-08] MEDS: ATORVASTATIN 40 MG TABLET PO (08:16)
[2021-12-08] MEDS: buPROPion HCL XL (24 HR) 150 MG TABCR 300 MG PO (08:16)
[2021-12-08] MEDS: MEMANTINE 10 MG TABLET PO ×2 (08:16→16:41)
[2021-12-08] MEDS: FLUTICASONE/SALMETEROL 115-21 MCG INHALER 1 PUFF 2 PUFF INHALATION ×2 (08:29→19:50)
--- NOTE | 2021-12-08 10:02 | PM.IMPN ---
Progress Note: A&P Assessment and Plan (1) Sepsis: Qualifiers: Sepsis acute organ dysfunction status: without acute organ dysfunction Sepsis type: sepsis due to unspecified organism Qualified Code(s): A41.9 - Sepsis, unspecified organism Code(s): A41.9 - Sepsis, unspecified organism Status: Acute Assessment and Plan: Secondary to UTI Early goal directed therapy ongoing. 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, to further evaluate patient had MRI of the brain did not show any significant change from CT scan of the head, most likely patient's symptoms are stemming from UTI causing urosepsis, as urine has significant leukocytosis, patient urine culture is growing E coli, patient is being treated with Zosyn will follow-up on urine culture and sensitivity, today patient is sitting in the much more alert and oriented, worked with the PT OT and evaluate the patient and further recommendation to follow, CT scan of abdomen and pelvis showed left kidney mass will consult urologist further evaluation and management will continue to monitor. (2) Acute UTI: Code(s): N39.0 - Urinary tract infection, site not specified Status: Acute Assessment and Plan: Currently on Zosyn Await urine cultures identification sensitivity Deescalate antibiotics as needed (3) NANCY (acute kidney injury): Code(s): N17.9 - Acute kidney failure, unspecified Status: Acute Assessment and Plan: Likely to be pre renal Continue IV fluids Repeat BMP in a.m. Continue to monitor BUN and creatinine Holding torsemide (4) Persistent atrial fibrillation: Code(s): I48.19 - Other persistent atrial fibrillation Status: Acute Assessment and Plan: On anticoagulation Rate controlled (5) Type 2 diabetes mellitus with hyperglycemia: Code(s): E11.65 - Type 2 diabetes mellitus with hyperglycemia Status: Acute Assessment and Plan: Apparently controlled with diet only as patient on no medications seemingly (6) Generalized weakness: Code(s): R53.1 - Weakness Status: Acute Assessment and Plan: Likely secondary to acute illness PT OT when clinically able (7) Idiopathic chronic gout, unspecified site, without tophus (tophi): Code(s): [id number].[id number] - Idiopathic chronic gout, unspecified site, without tophus (tophi) Status: Acute Assessment and Plan: Continue allopurinol Continue to monitor (8) Delirium: Code(s): R41.0 - Disorientation, unspecified Status: Acute Assessment and Plan: Likely secondary to acute illness. Supportive care CT of the head with no acute abnormalities Subjective Date/time seen: 12/08/21 10:02 12/07/2021 Interval history: patient with acute mental status change CT scan of the head is negative for any acute injury however patient does have previous infarct, to further evaluate patient had MRI of the brain did not show any significant change from CT scan of the head, most likely patient's symptoms are stemming f
--- NOTE | 2021-12-08 14:24 | WPDURCON ---
Assessment and Plan Assessment and plan (1) Acute UTI: Code(s): N39.0 - Urinary tract infection, site not specified Status: Acute Assessment and Plan: E coli UTI -- tailor antibiotics based on susceptibility profile -- advise 10-14d total treatment due to likely pyelonephritis (2) Left renal mass: Code(s): N28.89 - Other specified disorders of kidney and ureter Status: Acute Assessment and Plan: I personally reviewed the patient images and spoke with her, her , and her daughter about the findings. 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 Urine culture grew E coli, on Zosyn. She had a CT AP W Con 12/05/2021 that showed abnormal enhancement in the left kidney -- unclear of renal mass vs. infectious sequelae. Urology consulted for input. Review of Systems Review of Systems: All systems reviewed & are unremarkable except as noted in HPI and below PMFSH Past Medical History Medical History Cognitive decline Congestive heart failure Current use of custodial anticoagulation Essential (primary) hypertension Gout Hyperlipidemia Mild intermittent asthma without complication Persistent atrial fibrillation Type 2 diabetes mellitus without complication, without long-term current use of insulin Surgical History Surgical History History of cataract extraction History of colonoscopy with polypectomy History of gastric bypass History of hysterectomy History of tonsillectomy Family History Family History Mother Hypertension Father Family history of cardiovascular disease Social History Social History Social History: Surrogate decision maker: Veronica Patel, daughter. Code status: Full code. Smoking packs per day: 0.5 Smoking cigarettes per day: 10.0 Years smoked: 20 Smoking pack-years: 10.00 Smoking status: Former smoker Tobacco type: cigarettes Second hand tobacco smoke exposure: No Smoking end date: 09/08/88 Alcohol intake: never Substance use: never Substance use type: does not use Spiritual care concerns: No Meds Home Medications and Allergies Home Medications Medication Instructions Recorded Confirmed Type albuterol sulfate 90 mcg/actuation 1 inh INHALATION Q4H PRN #8.5 gm 07/07/20 12/06/21 Rx aerosol inhaler torsemide 20 mg tablet 40 mg PO QAM #90 tablet 12/07/20 12/06/21 Rx allopurinol 300 mg tablet 300 mg PO DAILY #90 tablet 05/03/21 12/06/21 Rx atorvastatin 40 mg tablet 40 mg PO DAILY #90 tablet 07/09/21 12/06/21 Rx bupropion HCl 300 mg 24 hr tablet, 300 mg PO QAM #90 tablet 08/13/21 12/06/21 Rx extended release memantine 10 mg tablet 10 mg PO BID #60 tablet 08/28/21 12/06/21 Rx metoprolol succinate 50 mg 50 mg PO DAILY #90 tablet 10/12/21 12/06/21 Rx tablet,extended release 24 hr potassium chloride 8 mEq 8 meq PO DAILY #30 cap 10/12/21 12/06/21 Rx capsule,extended release Xarelto 15 mg PO DAILY 11/10/21 12/06/21 History artificial tears solution 2 drp OPHTHALMIC (EYE) DAILY 11/10/21 12/06/21 History ofloxacin 1 drp LEFT EYE QID 11/10/21 12/06/21 History polymyxin B sulf-trimethoprim 1 drp OPHTHALMIC (EYE) QID 11/10/21 12/06/21 History vala
[2021-12-08] MEDS: RIVAROXABAN 15 MG TABLET PO (16:40)
[2021-12-08] MEDS: ACETAMINOPHEN 325 MG TABLET 650 MG PO (23:06)
[2021-12-09] VITALS (15 sets, daily range): BP systolic 110–112; BP diastolic 56–78; PULSE 75–100; RESP 16–24; TEMP 36.1–36.8; O2SAT 91–100
[2021-12-09 05:08] LABS: Hematocrit 32.3 % (37.0-47.0); Mean Corpuscular Hemoglobin 31.1 pg (26-34); Mean Corpuscular Volume 100.3 fl (80-100); Mean Platelet Volume 12.2 fl (7.4-10.4); Platelet Count Result 26 k/mm3 (150-375); Red Blood Count 3.22 M/mm3 (4.2-5.4); White Blood Count 10.2 K/mm3 (4.5-10.0)
[2021-12-09 05:30] LABS: Anion Gap 7 mmol/L (8-16); Blood Urea Nitrogen 35 mg/dL (7-17); Calcium 8.7 mg/dL (8.4-10.2); Carbon Dioxide 30 mmol/L (22-30); Chloride 102 mmol/L (98-107); Estimated CRCL calculation 42 ml/min; Estimated Glomerular Filt Rate 40; Glucose 129 mg/dL (65-110); Potassium 2.8 mmol/L (3.4-5.0); Sodium 139 mmol/L (137-145)
[2021-12-09] MEDS: POTASSIUM CHLORIDE 20 MEQ TABLET 40 MEQ PO ×2 (06:30→08:27)
[2021-12-09] MEDS: SILVERGEL (ELTA) 45 ML 1 APPLIC TOPICAL (08:02)
[2021-12-09] MEDS: buPROPion HCL XL (24 HR) 150 MG TABCR 300 MG PO (08:03)
[2021-12-09] MEDS: valACYclovir HCL 500 MG TABLET 1000 MG PO (08:03)
[2021-12-09] MEDS: ARTIFICIAL TEARS OPHTH SOLN 15 ML BOTTLE 2 DROP EACH EYE (08:03)
[2021-12-09] MEDS: allopurinoL 300 MG TABLET PO (08:04)
[2021-12-09] MEDS: MEMANTINE 10 MG TABLET PO ×2 (08:04→16:39)
[2021-12-09] MEDS: ATORVASTATIN 40 MG TABLET PO (08:04)
[2021-12-09] MEDS: METOPROLOL SUCCINATE EXT REL 50 MG TABCR PO (08:04)
[2021-12-09] MEDS: OFLOXACIN 0.3% OPHTH SOLN 5 ML BTL 1 DROP LEFT EYE ×4 (08:08→20:14)
[2021-12-09] MEDS: POLYMYXIN/TRIMETHOPRIM OPHTH 10 ML DROPS 1 DROP EACH EYE ×4 (08:09→20:14)
[2021-12-09] MEDS: FLUTICASONE/SALMETEROL 115-21 MCG INHALER 1 PUFF 2 PUFF INHALATION ×2 (08:15→20:48)
[2021-12-09] MEDS: POTASSIUM CHLORIDE INJ 40 MEQ in SODIUM CHLORIDE 0.9% IV 500 ML 130 MEQ IVPB (09:00)
--- NOTE | 2021-12-09 10:20 | PM.IMPN ---
Progress Note: A&P Assessment and Plan (1) Sepsis: Qualifiers: Sepsis acute organ dysfunction status: without acute organ dysfunction Sepsis type: sepsis due to unspecified organism Qualified Code(s): A41.9 - Sepsis, unspecified organism Code(s): A41.9 - Sepsis, unspecified organism Status: Acute Assessment and Plan: Secondary to UTI Early goal directed therapy ongoing. 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, to further evaluate patient had MRI of the brain did not show any significant change from CT scan of the head, most likely patient's symptoms are stemming from UTI causing urosepsis, as urine has significant leukocytosis, patient urine culture is growing E coli, patient is being treated with Zosyn will follow-up on urine culture and sensitivity, today patient is sitting in the much more alert and oriented, worked with the PT OT and evaluate the patient and further recommendation to follow, CT scan of abdomen and pelvis showed left kidney mass will consult urologist further evaluation and management will continue to monitor. 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, to further evaluate patient had MRI of the brain did not show any significant change from CT scan of the head, most likely patient's symptoms are stemming from UTI causing urosepsis, as urine has significant leukocytosis, patient urine culture is growing E coli, resistant to multiple antibiotics, sensitive to Zosyn, patient is being treated with Zosyn, patient will require IV antibiotics was 7 days, today patient is lying in the bed, much more alert and oriented, worked with the PT OT and evaluate the patient and further recommendation to follow, CT scan of abdomen and pelvis showed left kidney mass, discussed with the urologist recommended to repeat CT scan in 6 weeks to further evaluate, if the mass then resolved will need biopsy and further recommendation to follow. (2) Acute UTI: Code(s): N39.0 - Urinary tract infection, site not specified Status: Acute Assessment and Plan: Currently on Zosyn Await urine cultures identification sensitivity Deescalate antibiotics as needed (3) NANCY (acute kidney injury): Code(s): N17.9 - Acute kidney failure, unspecified Status: Acute Assessment and Plan: Likely to be pre renal Continue IV fluids Repeat BMP in a.m. Continue to monitor BUN and creatinine Holding torsemide (4) Persistent atrial fibrillation: Code(s): I48.19 - Other persistent atrial fibrillation Status: Acute Assessment and Plan: On anticoagulation Rate controlled (5) Type 2 diabetes mellitus with hyperglycemia: Code(s): E11.65 - Type 2 diabetes mellitus with hyperglycemia Status: Acute Assessment and Plan: Apparently controlled with diet only as patient on no medications seemingly (6) Generalized weakness: Code(s): R53.1 - Weakness
--- NOTE | 2021-12-09 13:53 | WPDNEUROLOGY ---
Neurology EEG Report General Information Date of Study: 12/07/21 TEST eeg
--- NOTE | 2021-12-09 13:57 | WPDNEUROLOGY ---
Neurology EEG Report General Information Date of Study: 12/07/21 TEST eeg DIAGNOSIS Altered mental status CONDITION OF RECORDING drowsy and sleep EEG NUMBER [id number] CLINICAL HISTORY patient reports she was in bed asleep and then woke up on the floor. Does not know how long she was down there before waking up. EEG DESCRIPTION Background rhythm consists of low to medium voltage 5 to 7 hertz per 2nd theta admixed with intermittent low to medium voltage 3 to 4 hertz per 2nd delta activity. Hyperventilation not done. Photic stimulation not done. Non paroxysmal. Nonfocal. Nonlateralizing. IMPRESSION Abnormal record due to the presence of bihemispheric slow activity these abnormalities could be suggestive of underlying organic a metabolic encephalopathy or postictal state. There is no evidence of active seizure like discharges throughout the tracing clinical correlation recommended
[2021-12-09 15:24] LABS: Anion Gap 3 mmol/L (8-16); Blood Urea Nitrogen 32 mg/dL (7-17); Calcium 8.7 mg/dL (8.4-10.2); Carbon Dioxide 31 mmol/L (22-30); Chloride 106 mmol/L (98-107); Estimated CRCL calculation 35 ml/min; Estimated Glomerular Filt Rate 31; Glucose 132 mg/dL (65-110); Magnesium 2.3 mg/dL (1.6-2.3); Potassium 4.1 mmol/L (3.4-5.0); Sodium 140 mmol/L (137-145)
[2021-12-09] MEDS: RIVAROXABAN 15 MG TABLET PO (16:39)
[2021-12-10] VITALS (15 sets, daily range): BP systolic 110–122; BP diastolic 46–79; PULSE 80–105; RESP 16; TEMP 36.1–37.2; O2SAT 62–96
[2021-12-10 05:57] LABS: Hematocrit 31.1 % (37.0-47.0); Hemoglobin 9.6 g/dL (12.0-15.0); Immature Platelet Fraction Pct 8.6 % (0.9-11.2); Mean Corpuscular HGB Conc 30.9 g/dl (32-36); Mean Corpuscular Hemoglobin 30.1 pg (26-34); Mean Corpuscular Volume 97.5 fl (80-100); Red Blood Count 3.19 M/mm3 (4.2-5.4); Red Cell Distribution Width 15.6 % (11.5-14.5)
[2021-12-10 06:07] LABS: Anion Gap 4 mmol/L (8-16); Blood Urea Nitrogen 29 mg/dL (7-17); Calcium 8.6 mg/dL (8.4-10.2); Carbon Dioxide 26 mmol/L (22-30); Chloride 107 mmol/L (98-107); Estimated CRCL calculation 46 ml/min; Estimated Glomerular Filt Rate 44; Glucose 150 mg/dL (65-110); Potassium 3.9 mmol/L (3.4-5.0); Sodium 137 mmol/L (137-145)
[2021-12-10 06:14] LABS: Platelet Count Result 14 k/mm3 (150-375)
[2021-12-10] MEDS: FLUTICASONE/SALMETEROL 115-21 MCG INHALER 1 PUFF 2 PUFF INHALATION ×2 (08:09→22:02)
[2021-12-10] MEDS: SILVERGEL (ELTA) 45 ML 1 APPLIC TOPICAL (08:34)
[2021-12-10] MEDS: allopurinoL 300 MG TABLET PO (08:34)
[2021-12-10] MEDS: valACYclovir HCL 500 MG TABLET 1000 MG PO (08:34)
[2021-12-10] MEDS: ATORVASTATIN 40 MG TABLET PO (08:34)
[2021-12-10] MEDS: buPROPion HCL XL (24 HR) 150 MG TABCR 300 MG PO (08:34)
[2021-12-10] MEDS: MEMANTINE 10 MG TABLET PO ×2 (08:35→17:03)
[2021-12-10] MEDS: ARTIFICIAL TEARS OPHTH SOLN 15 ML BOTTLE 2 DROP EACH EYE (08:35)
[2021-12-10] MEDS: METOPROLOL SUCCINATE EXT REL 50 MG TABCR PO (08:35)
[2021-12-10] MEDS: OFLOXACIN 0.3% OPHTH SOLN 5 ML BTL 1 DROP LEFT EYE ×4 (08:37→20:04)
[2021-12-10] MEDS: POLYMYXIN/TRIMETHOPRIM OPHTH 10 ML DROPS 1 DROP EACH EYE ×4 (08:37→20:04)
--- NOTE | 2021-12-10 12:45 | PDONCCN ---
HPI - Date of Consult Date/Time: 12/10/21 12:45 Requesting Physician: Espinoza Smart MD Primary Care Provider: Baldomero Marvin MD - Consult Narrative Reason for consult: Thrombocytopenia Narrative: Dodie Duong is a 76 year old female with history of chronic kidney disease, atrial fibrillation, hypertension and type 2 diabetes came into the hospital with mental status changes. He was dealing with confusion and delirium. In the ER UA was performed that showed finding consistent with UTI. CT abdomen and pelvis showed left kidney mass as well. There was 6.4 cm mass in the left kidney could be secondary to pyelonephritis versus malignancy. 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 Labs showed normal platelet count of [id number] on admission now dropped down to 14,000. Patient was treated with Zosyn for UTI. She does have some bruising in the upper extremities but denies any bleeding including melena hematochezia. Review of Systems - Review of Systems All systems reviewed & are unremarkable except as noted in HPI and bel - Neurologic Reports confusion, Reports weakness, Denies vertigo, Denies focal weakness, Denies sensory deficit [facility] Medical History: Medical History (Last Reviewed 12/08/21 @ 14:26 by Jf Johnston MD) Cognitive decline Congestive heart failure Current use of senior care anticoagulation Essential (primary) hypertension Gout Hyperlipidemia Mild intermittent asthma without complication Persistent atrial fibrillation Type 2 diabetes mellitus without complication, without long-term current use of insulin Surgical History: Surgical History (Last Reviewed 12/08/21 @ 14:26 by Jf Johnston MD) History of cataract extraction History of colonoscopy with polypectomy History of gastric bypass History of hysterectomy History of tonsillectomy Family History: Family History (Last Reviewed 12/08/21 @ 14:26 by Jf Johnston MD) Mother Hypertension Father Family history of cardiovascular disease - Social History Social History: Social History (Last Reviewed 12/08/21 @ 14:26 by Jf Johnston MD) Alcohol Use: Alcohol intake: never Substance Use: Substance use: never Substance use type: does not use Others: Spiritual care concerns: No Smoking Status: Smoking status: Former smoker Tobacco type: cigarettes Second hand tobacco smoke exposure: No Smoking end date: 09/08/88 Smoking Pack-years: Smoking packs per day: 0.5 Smoking cigarettes per day: 10.0 Years smoked: 20 Smoking pack-years: 10.00 Meds Home Medications Medication Instructions Recorded Confirmed Type albuterol sulfate 90 mcg/actuation 1 inh INHALATION Q4H PRN #8.5 gm 07/07/20 12/06/21 Rx aerosol inhaler torsemide 20 mg tablet 40 mg PO QAM #90 tablet 12/07/20 12/06/21 Rx allopurinol 300 mg tablet 300 mg PO DAILY #90 tablet 05/03/21 12/06/21 Rx atorvastatin 40 mg tablet 40 mg PO DAILY #90 tablet 07/09/21 12/06/21 Rx bupropion HCl 300 mg 24 hr tablet, 300 mg PO QAM #90 tablet 08/13/21 12/06/21 Rx extended release memantine 10 mg tablet 10 mg PO BID #60 tablet 08/28/21 12/06/21 Rx metoprolol succinate 50 mg 50 mg PO DAILY #90 tablet 10/12/21 12/06/21 Rx tablet,extended release 24 hr potassium chloride 8 mEq 8 meq PO DAILY #30 cap 10/12/21 12/06/21 Rx capsule,extended release Xarelto 15 mg PO DAILY 11/10/21 12/06/21 History artificial tears solution 2 drp OPHTHALMIC (EYE) DAILY 11/10/21 12/06/21 History ofloxacin 1 drp LEFT EYE QID 11/10/21 12/06/21 History polymyxin B sulf-trimethoprim 1 drp OPHTHALMIC (EYE) QID 11/10/21 12/06/21 History valacyclovir [Valtrex] 1,000 mg PO DAILY 11/10/21 12/06/21 History silver 200 mcg/gram topical gel 1 applic TOPICAL DAILY #90 g 12/05/21 12/06/21 Rx fluticasone furoate-vilanterol 1 inh INHALATION DAILY 12/06/21 12/06/21 History [Breo Ellipta] galantamine 8 mg PO DAILY
--- NOTE | 2021-12-10 13:03 | PM.IMPN ---
Progress Note: A&P Assessment and Plan (1) Sepsis: Qualifiers: Sepsis acute organ dysfunction status: without acute organ dysfunction Sepsis type: sepsis due to unspecified organism Qualified Code(s): A41.9 - Sepsis, unspecified organism Code(s): A41.9 - Sepsis, unspecified organism Status: Acute Assessment and Plan: Secondary to UTI Early goal directed therapy ongoing. 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, to further evaluate patient had MRI of the brain did not show any significant change from CT scan of the head, most likely patient's symptoms are stemming from UTI causing urosepsis, as urine has significant leukocytosis, patient urine culture is growing E coli, patient is being treated with Zosyn will follow-up on urine culture and sensitivity, today patient is sitting in the much more alert and oriented, worked with the PT OT and evaluate the patient and further recommendation to follow, CT scan of abdomen and pelvis showed left kidney mass will consult urologist further evaluation and management will continue to monitor. 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, to further evaluate patient had MRI of the brain did not show any significant change from CT scan of the head, most likely patient's symptoms are stemming from UTI causing urosepsis, as urine has significant leukocytosis, patient urine culture is growing E coli, resistant to multiple antibiotics, sensitive to Zosyn, patient is being treated with Zosyn, patient will require IV antibiotics was 7 days, today patient is lying in the bed, much more alert and oriented, worked with the PT OT and evaluate the patient and further recommendation to follow, CT scan of abdomen and pelvis showed left kidney mass, discussed with the urologist recommended to repeat CT scan in 6 weeks to further evaluate, if the mass then resolved will need biopsy and further recommendation to follow. 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, to further evaluate patient had MRI of the brain did not show any significant change from CT scan of the head, to father evaluate patient had EEG and its abnormal will consult neurologist for further revaluation, most likely patient's symptoms are stemming from UTI causing urosepsis, as urine has significant leukocytosis, patient urine culture is growing E coli, resistant to multiple antibiotics, sensitive to Zosyn, patient is being treated with Zosyn, patient will require IV antibiotics was 7 days, CT scan of abdomen and pelvis showed left kidney mass, discussed with the urologist recommended to repeat CT scan in 6 weeks to further evaluate, if the mass then resolved will need biopsy and further recommendation to follow. today patient platelets have trended down to 15, had nose bleed on Xarelto now on hold,
[2021-12-10] MEDS: methylPREDNISolone SOD SUCC 125 MG VIAL 80 MG IV PUSH ×2 (13:52→20:04)
[2021-12-10 14:39] LABS: Iron 51 ug/dL (37-170)
[2021-12-10 14:51] LABS: Percent Iron Saturation 17 % (20-50)
[2021-12-10 15:19] LABS: Folic Acid > 20.0 ng/mL (2.76->20)
[2021-12-11] VITALS (18 sets, daily range): BP systolic 100–132; BP diastolic 54–91; PULSE 76–98; RESP 16–20; TEMP 35.7–36.9; O2SAT 92–99
[2021-12-11 06:02] LABS: Hematocrit 31.7 % (37.0-47.0); Hemoglobin 9.8 g/dL (12.0-15.0); Immature Platelet Fraction Pct 12.3 % (0.9-11.2); Mean Corpuscular HGB Conc 30.9 g/dl (32-36); Mean Corpuscular Hemoglobin 30.8 pg (26-34); Mean Corpuscular Volume 99.7 fl (80-100); Mean Platelet Volume 14.4 fl (7.4-10.4); Platelet Count Result 38 k/mm3 (150-375); Red Blood Count 3.18 M/mm3 (4.2-5.4); Red Cell Distribution Width 15.4 % (11.5-14.5); White Blood Count 5.9 K/mm3 (4.5-10.0)
[2021-12-11 06:14] LABS: Anion Gap 6 mmol/L (8-16); Blood Urea Nitrogen 29 mg/dL (7-17); Calcium 8.8 mg/dL (8.4-10.2); Carbon Dioxide 26 mmol/L (22-30); Chloride 103 mmol/L (98-107); Estimated CRCL calculation 47 ml/min; Estimated Glomerular Filt Rate 44; Glucose 353 mg/dL (65-110); Potassium 4.2 mmol/L (3.4-5.0); Sodium 135 mmol/L (137-145)
[2021-12-11] MEDS: methylPREDNISolone SOD SUCC 125 MG VIAL 80 MG IV PUSH ×2 (08:30→20:45)
[2021-12-11] MEDS: ARTIFICIAL TEARS OPHTH SOLN 15 ML BOTTLE 2 DROP EACH EYE (08:30)
[2021-12-11] MEDS: SILVERGEL (ELTA) 45 ML 1 APPLIC TOPICAL (08:30)
[2021-12-11] MEDS: valACYclovir HCL 500 MG TABLET 1000 MG PO (08:31)
[2021-12-11] MEDS: ATORVASTATIN 40 MG TABLET PO (08:31)
[2021-12-11] MEDS: METOPROLOL SUCCINATE EXT REL 50 MG TABCR PO (08:31)
[2021-12-11] MEDS: OFLOXACIN 0.3% OPHTH SOLN 5 ML BTL 1 DROP LEFT EYE ×4 (08:31→20:50)
[2021-12-11] MEDS: POLYMYXIN/TRIMETHOPRIM OPHTH 10 ML DROPS 1 DROP EACH EYE ×4 (08:31→20:45)
[2021-12-11] MEDS: MEMANTINE 10 MG TABLET PO ×2 (08:31→17:13)
[2021-12-11] MEDS: allopurinoL 300 MG TABLET PO (08:31)
[2021-12-11] MEDS: buPROPion HCL XL (24 HR) 150 MG TABCR 300 MG PO (08:31)
[2021-12-11] MEDS: FLUTICASONE/SALMETEROL 115-21 MCG INHALER 1 PUFF 2 PUFF INHALATION ×2 (09:12→21:15)
--- NOTE | 2021-12-11 09:33 | PCOTNOTE ---
Attempted to see patient for OT, patient refused at this time. Patient stated, I'm chewing on the fat RE: platelet count, etc. Patient unwilling to participate in any interventions at this time. Patient requested this therapist attempt again later.
[2021-12-11 12:57] LABS: IFOB Positive Control Positive; Immunochemical Fecal Occult Bl Negative (N)
--- NOTE | 2021-12-11 14:29 | PM.IMPN ---
Progress Note: A&P Assessment and Plan (1) Left renal mass: Code(s): N28.89 - Other specified disorders of kidney and ureter Status: Acute (2) Acute UTI: Code(s): N39.0 - Urinary tract infection, site not specified Status: Acute (3) NANCY (acute kidney injury): Code(s): N17.9 - Acute kidney failure, unspecified Status: Acute (4) Sepsis: Qualifiers: Sepsis acute organ dysfunction status: without acute organ dysfunction Sepsis type: sepsis due to unspecified organism Qualified Code(s): A41.9 - Sepsis, unspecified organism Code(s): A41.9 - Sepsis, unspecified organism Status: Acute (5) Bacteremia: Code(s): R78.81 - Bacteremia Status: Acute (6) Congestive heart failure: Qualifiers: Heart failure chronicity: acute on chronic Heart failure type: unspecified Qualified Code(s): I50.9 - Heart failure, unspecified Code(s): I50.9 - Heart failure, unspecified Status: Acute (7) Sepsis: Code(s): A41.9 - Sepsis, unspecified organism Status: Acute (8) Acute UTI: Code(s): N39.0 - Urinary tract infection, site not specified Status: Acute (9) Persistent atrial fibrillation: Code(s): I48.19 - Other persistent atrial fibrillation Status: Acute (10) Acute kidney injury: Code(s): N17.9 - Acute kidney failure, unspecified Status: Acute (11) Type 2 diabetes mellitus with hyperglycemia: Code(s): E11.65 - Type 2 diabetes mellitus with hyperglycemia Status: Acute (12) Generalized weakness: Code(s): R53.1 - Weakness Status: Acute (13) Delirium: Code(s): R41.0 - Disorientation, unspecified Status: Acute (14) Thrombocytopenia: Code(s): D69.6 - Thrombocytopenia, unspecified Status: Acute Additional Plan 12/07/2021 Interval history: patient with acute mental status change CT scan of the head is negative for any acute injury however patient does have previous infarct, to further evaluate patient had MRI of the brain did not show any significant change from CT scan of the head, most likely patient's symptoms are stemming from UTI causing urosepsis, as urine has significant leukocytosis patient is being treated with Zosyn will follow-up on urine culture and identification, will have a PT OT evaluate the patient and further recommendation to follow, CT scan of abdomen and pelvis showed left kidney mass will consult urologist further evaluation and management will continue to monitor. 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, to further evaluate patient had MRI of the brain did not show any significant change from CT scan of the head, most likely patient's symptoms are stemming from UTI causing urosepsis, as urine has significant leukocytosis, patient urine culture is growing E coli, patient is being treated with Zosyn will follow-up on urine culture and sensitivity, today patient is sitting in the much more alert and oriented, worked with the PT OT and evaluate the patient and further recommendation to follow, CT scan of abdomen and pelvis showed left kidney mass will consult urologist further evaluation and management will continue to monitor. 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, to further evaluate patient had MRI of the brain did not show any significant change from CT scan of the head, most likely patient's symptoms are stemming from UTI causing urosepsis, as urine has significant leukocytosis, patient urine culture is growing E coli, resistant to multiple antibiotics, sensitive to Zosyn, patient is being treated with Zosyn, patient will require IV antibiotics was 7 days, today patient is lying in the b
--- NOTE | 2021-12-11 16:38 | WPDNEURCNPN ---
Assessment and Plan Additional Plan subcortical stroke involving the left thalamus. All the pros and cons were discussed with her as well as with the family in front of her treatment will be continued as such Consult date: 12/11/21 HPI: Dodie Duong is a 76 year old female admitted to the hospital for the complaints of change in the mental status with ongoing history of 1. Hypertension 2. Atrial fibrillation 3. Chronic renal disease 4. Chronic lower extremity wound 5. Type 2 diabetes mellitus 6. Hyperlipidemia 7. Gout and 8. History of recent treatment of UTI patient reportedly rolled out of bed and fell change in the mental status confusion and delirium . Patient does have ongoing history of cognitive decline with congestive heart failure and has been on anticoagulation therapy because of the persistent atrial fibrillation, initial lab revealed hemoglobin 9. 8 with WBC 5.9 platelet count of only 38 INR of 2. 4 and normal BMP normal UA with 2+ blood CT of cervical spine with cervical spondylosis CT of thoracic and lumbar spine with spondylosis and dextroscoliosis and brain MRI with old infarct in the left thalamus and left lentiform nucleus EEG abnormal with bihemispheric slow activity Review of Systems Review of Systems: All systems reviewed & are unremarkable except as noted in HPI and below PMFSH Past Medical History Medical History Cognitive decline Congestive heart failure Current use of meterman anticoagulation Essential (primary) hypertension Gout Hyperlipidemia Mild intermittent asthma without complication Persistent atrial fibrillation Type 2 diabetes mellitus without complication, without long-term current use of insulin Surgical History Surgical History History of cataract extraction History of colonoscopy with polypectomy History of gastric bypass History of hysterectomy History of tonsillectomy Family History Family History Mother Hypertension Father Family history of cardiovascular disease Social History Social History Social History: Surrogate decision maker: Veronica Patel, daughter. Code status: Full code. Smoking packs per day: 0.5 Smoking cigarettes per day: 10.0 Years smoked: 20 Smoking pack-years: 10.00 Smoking status: Former smoker Tobacco type: cigarettes Second hand tobacco smoke exposure: No Smoking end date: 09/08/88 Alcohol intake: never Substance use: never Substance use type: does not use Spiritual care concerns: No Meds Home Medications and Allergies Home Medications Medication Instructions Recorded Confirmed Type albuterol sulfate 90 mcg/actuation 1 inh INHALATION Q4H PRN #8.5 gm 07/07/20 12/06/21 Rx aerosol inhaler torsemide 20 mg tablet 40 mg PO QAM #90 tablet 12/07/20 12/06/21 Rx allopurinol 300 mg tablet 300 mg PO DAILY #90 tablet 05/03/21 12/06/21 Rx atorvastatin 40 mg tablet 40 mg PO DAILY #90 tablet 07/09/21 12/06/21 Rx bupropion HCl 300 mg 24 hr tablet, 300 mg PO QAM #90 tablet 08/13/21 12/06/21 Rx extended release memantine 10 mg tablet 10 mg PO BID #60 tablet 08/28/21 12/06/21 Rx metoprolol succinate 50 mg 50 mg PO DAILY #90 tablet 10/12/21 12/06/21 Rx tablet,extended release 24 hr potassium chloride 8 mEq 8 meq PO DAILY #30 cap 10/12/21 12/06/21 Rx capsule,extended release Xarelto 15 mg PO DAILY 11/10/21 12/06/21 History artificial tears solution 2 drp OPHTHALMIC (EYE) DAILY 11/10/21 12/06/21 History ofloxacin 1 drp LEFT EYE QID 11/10/21 12/06/21 History polymyxin B sulf-trimethoprim 1 drp OPHTHALMIC (EYE) QID 11/10/21 12/06/21 History valacyclovir [Valtrex] 1,000 mg PO DAILY 11/10/21 12/06/21 History silver 200 mcg/gram topical gel 1 applic TOPICAL DAILY #90 g 12/05/21 12/06/21 Rx fluticasone furoate-vilanterol 1 inh INHALA
[2021-12-11 23:07] LABS: Add Urine Microscopic? YES; Appearance Urine Cloudy (Clear); Bacteria Urine Trace /hpf; Bilirubin Urine Negative (Negative); Blood Urine 3+ (Negative); Budding Yeast Urine Present /hpf; Color Urine Amber (Yellow); Glucose Urine UA 3+ mg/dL (Negative); Ketones Urine Trace mg/dL (Negative); Leukocyte Esterase Ur 3+ LEU/UL (Negative); Mucus Urine Rare /lpf; Nitrate Urine Negative (Negative); Protein Urine Negative (Negative); RBC Urine >75 /hpf (0-2); Squamous Epithelial Cell Urine Many /hpf (Few); Urobilinogen Urine Negative mg/dL (<2.0); WBC Urine 16-20 /hpf
[2021-12-11] MEDS: INSULIN ASPART (*BKC) 100 UNITS/ML 8 UNITS SUB-Q (23:07)
[2021-12-12] VITALS (14 sets, daily range): BP systolic 100–125; BP diastolic 49–72; PULSE 70–102; RESP 14–18; TEMP 35.7–36.4; O2SAT 93–98
[2021-12-12 02:53] LABS: Glucose Point of Care 353 mg/dl (65-105)
[2021-12-12 02:53] LABS: Glucose Point of Care 397 mg/dl (65-105)
[2021-12-12] MEDS: INSULIN ASPART (*BKC) 100 UNITS/ML 12 UNITS SUB-Q (03:17)
[2021-12-12 05:43] LABS: Hematocrit 28.8 % (37.0-47.0); Mean Corpuscular HGB Conc 31.3 g/dl (32-36); Mean Corpuscular Hemoglobin 30.7 pg (26-34); Mean Corpuscular Volume 98.3 fl (80-100); Mean Platelet Volume 12.2 fl (7.4-10.4); Platelet Count Result 92 k/mm3 (150-375); Red Blood Count 2.93 M/mm3 (4.2-5.4); Red Cell Distribution Width 15.3 % (11.5-14.5); White Blood Count 11.5 K/mm3 (4.5-10.0)
[2021-12-12 06:02] LABS: Anion Gap 7 mmol/L (8-16); Blood Urea Nitrogen 33 mg/dL (7-17); Calcium 9.2 mg/dL (8.4-10.2); Carbon Dioxide 27 mmol/L (22-30); Chloride 102 mmol/L (98-107); Estimated CRCL calculation 47 ml/min; Estimated Glomerular Filt Rate 44; Glucose 289 mg/dL (65-110); Potassium 3.8 mmol/L (3.4-5.0); Sodium 136 mmol/L (137-145)
[2021-12-12 06:23] LABS: Hemoglobin A1C 7.2 % (<5.7)
[2021-12-12 07:56] LABS: Glucose Point of Care 240 mg/dl (65-105)
[2021-12-12] MEDS: ARTIFICIAL TEARS OPHTH SOLN 15 ML BOTTLE 2 DROP EACH EYE (08:07)
[2021-12-12] MEDS: methylPREDNISolone SOD SUCC 125 MG VIAL 80 MG IV PUSH ×2 (08:07→20:32)
[2021-12-12] MEDS: OFLOXACIN 0.3% OPHTH SOLN 5 ML BTL 1 DROP LEFT EYE ×4 (08:07→20:32)
[2021-12-12] MEDS: buPROPion HCL XL (24 HR) 150 MG TABCR 300 MG PO (08:07)
[2021-12-12] MEDS: POLYMYXIN/TRIMETHOPRIM OPHTH 10 ML DROPS 1 DROP EACH EYE ×4 (08:07→20:30)
[2021-12-12] MEDS: ATORVASTATIN 40 MG TABLET PO (08:08)
[2021-12-12] MEDS: valACYclovir HCL 500 MG TABLET 1000 MG PO (08:08)
[2021-12-12] MEDS: SILVERGEL (ELTA) 45 ML 1 APPLIC TOPICAL (08:08)
[2021-12-12] MEDS: MEMANTINE 10 MG TABLET PO ×2 (08:08→16:33)
[2021-12-12] MEDS: INSULIN ASPART (*BKC) 100 UNITS/ML SUB-Q ×3 (08:08→16:34)
[2021-12-12] MEDS: allopurinoL 300 MG TABLET PO (08:08)
[2021-12-12] MEDS: ACETAMINOPHEN 325 MG TABLET 650 MG PO (08:23)
[2021-12-12] MEDS: METOPROLOL SUCCINATE EXT REL 50 MG TABCR PO (08:24)
[2021-12-12] MEDS: FLUTICASONE/SALMETEROL 115-21 MCG INHALER 1 PUFF 2 PUFF INHALATION ×2 (08:50→20:19)
[2021-12-12 11:45] LABS: Glucose Point of Care 311 mg/dl (65-105)
--- NOTE | 2021-12-12 12:57 | WPDONCPN ---
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 Platelet antibodies are pending. She has good response with steroid with improvement in the platelet count. We will change her to prednisone 60 mg twice a day that she will taper 10 mg every 3rd day. She should be able to go home from Hematology standpoint. Anemia. Workup noted. Iron and B12 normal. Renal function is impaired. This is likely secondary to anemia of chronic kidney disease with GFR of 44%. We will follow-up in the office and discuss Procrit treatment. Urosepsis. Patient is on Zosyn. Left renal mass. We will repeat imaging studies in 4-6 week as an outpatient. - Time Spent With Patient Total time spent is greater than 50% in coordination of care (as documented) at patient's floor/unit and/or counseling patient: 15 - 25 minutes Subjective Interval history: Thrombocytopenia secondary to ITP Anemia of chronic disease UTI Review of Systems - Review of Systems Patient is feeling much better. He is much more awake and alert. She has some bruising in the upper extremities but denies any bleeding. She has been complaining of some tiredness and fatigue. No fevers and chills. No other new complaints. - Neurologic Reports confusion, Reports weakness, Denies vertigo, Denies focal weakness, Denies sensory deficit Exam Vital signs: Temp Pulse Resp BP Pulse Ox 36.2 C L 92 16 114/49 L 98 12/12/21 09:25 12/12/21 12:00 12/12/21 09:25 12/12/21 09:25 12/12/21 09:25 Narrative: Lungs are clear to auscultation bilaterally Cardiovascular regular rate rhythm no murmurs Abdomen soft nontender nondistended bowel sounds are positive Extremities no edema. She has some bruising in the upper extremities. PN: Objective Data - Labs CBC & Chem 7: 12/12/21 05:24 12/12/21 05:24 Labs: Laboratory Results - last 24 hr 12/11/21 12/11/21 12/11/21 12:41 22:15 22:28 WBC RBC Hgb Hct MCV MCH MCHC RDW Plt Count MPV Sodium Potassium Chloride Carbon Dioxide Anion Gap BUN Creatinine Estim Creat Clear Calc Estimated GFR Glucose POC Capillary Glucose 397 H Hemoglobin A1c Calcium Urine Color Giselle Urine Appearance Cloudy H Urine pH 5.0 Ur Specific [place] 1.020 Urine Protein Negative Urine Glucose (UA) 3+ H Urine Ketones Trace Ur Blood (Man) 3+ H Urine Nitrate Negative Urine Bilirubin Negative Urine Urobilinogen Negative Leukocyte Esterase Rfl 3+ H Urine RBC >75 H Urine WBC 16-20 H Ur Squamous Epith Cells Many H Urine Bacteria Trace Urine Mucus Rare Urine Yeast (Budding) Present H Stl Occult Blood (IFOB) Negative 12/12/21 12/12/21 12/12/21 02:45 05:24 05:24 WBC 11.5 H RBC 2.93 L Hgb 9.0 L Hct 28.8 L MCV 98.3 MCH 30.7 MCHC 31.3 L RDW 15.3 H Plt Count 92 L D MPV 12.2 H Sodium 136 L Potassium 3.8 Chloride 102 Carbon Dioxide 27 Anion Gap 7 L BUN 33 H Creatinine 1.20 H Estim Creat Clear Calc 47 Estimated GFR 44 L Glucose 289 H POC Capillary Glucose 353 H Hemoglobin A1c Calcium 9.2 Urine Color Urine Appearance Urine pH Ur Specific [place] Urine Protein Urine Glucose (UA) Urine Ketones Ur Blood (Man) Urine Nitrate Urine Bilirubin Urine Urobilinogen Leukocyte Esterase Rfl Urine RBC Urine WBC Ur Squamous Epith Cells Urine Bacteria Urine Mucus Urine Yeast (Budding) Stl Occult Blood (IFOB) 12/12/21 12/12/21 12/12/21 05:24 07:39 11:34 WBC RBC Hgb Hct MCV MCH MCHC RDW Plt Count MPV Sodium Potassium Chloride Carbon Dioxide Anion Gap BUN Creatinine Estim Creat Clear Calc Estimated GFR Glucose POC Capillary Glucose 240 H 311 H Hemoglobin A1c 7.2
--- NOTE | 2021-12-12 13:44 | WPDCDIQUERY2 ---
CDI Query Clarification Request 12/11 Hospitalist documented: Congestive heart failure: Qualifiers: Heart failure chronicity: acute on chronic Heart failure type: unspecified Qualified Code(s): I50.9 - Heart failure, unspecified I50.9 - Heart failure, unspecified Status: Acute Past Medical History listed Congestive Heart Failure Chest X-Ray 12/06/21 18:14 IMPRESSION: 1. Stable small left pleural effusion. 2. Stable airspace opacities at left lung base, consistent with atelectasis versus pneumonia. 3. Cardiomegaly. For coding purposes, please clarify if Acute on Chronic Congestive Heart Failure is: Systolic Diastolic Combined Other Not able to determine <Lisa Sarmiento - Last Filed: 12/12/21 14:06> error CHF should not have been placed on Dx list <Marisa Khan MD - Last Filed: 12/12/21 14:57>
--- NOTE | 2021-12-12 14:59 | PM.IMPN ---
Progress Note: A&P Assessment and Plan (1) Left renal mass: Code(s): N28.89 - Other specified disorders of kidney and ureter Status: Acute (2) Acute UTI: Code(s): N39.0 - Urinary tract infection, site not specified Status: Acute (3) NANCY (acute kidney injury): Code(s): N17.9 - Acute kidney failure, unspecified Status: Acute (4) Sepsis: Qualifiers: Sepsis acute organ dysfunction status: without acute organ dysfunction Sepsis type: sepsis due to unspecified organism Qualified Code(s): A41.9 - Sepsis, unspecified organism Code(s): A41.9 - Sepsis, unspecified organism Status: Acute (5) Bacteremia: Code(s): R78.81 - Bacteremia Status: Acute (6) Persistent atrial fibrillation: Code(s): I48.19 - Other persistent atrial fibrillation Status: Acute (7) Type 2 diabetes mellitus with hyperglycemia: Code(s): E11.65 - Type 2 diabetes mellitus with hyperglycemia Status: Acute (8) Generalized weakness: Code(s): R53.1 - Weakness Status: Acute (9) Delirium: Code(s): R41.0 - Disorientation, unspecified Status: Acute (10) Thrombocytopenia: Code(s): D69.6 - Thrombocytopenia, unspecified Status: Acute (11) Diabetes mellitus: Code(s): E11.9 - Type 2 diabetes mellitus without complications Status: Acute Additional Plan 12/07/2021 Interval history: patient with acute mental status change CT scan of the head is negative for any acute injury however patient does have previous infarct, to further evaluate patient had MRI of the brain did not show any significant change from CT scan of the head, most likely patient's symptoms are stemming from UTI causing urosepsis, as urine has significant leukocytosis patient is being treated with Zosyn will follow-up on urine culture and identification, will have a PT OT evaluate the patient and further recommendation to follow, CT scan of abdomen and pelvis showed left kidney mass will consult urologist further evaluation and management will continue to monitor. 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, to further evaluate patient had MRI of the brain did not show any significant change from CT scan of the head, most likely patient's symptoms are stemming from UTI causing urosepsis, as urine has significant leukocytosis, patient urine culture is growing E coli, patient is being treated with Zosyn will follow-up on urine culture and sensitivity, today patient is sitting in the much more alert and oriented, worked with the PT OT and evaluate the patient and further recommendation to follow, CT scan of abdomen and pelvis showed left kidney mass will consult urologist further evaluation and management will continue to monitor. 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, to further evaluate patient had MRI of the brain did not show any significant change from CT scan of the head, most likely patient's symptoms are stemming from UTI causing urosepsis, as urine has significant leukocytosis, patient urine culture is growing E coli, resistant to multiple antibiotics, sensitive to Zosyn, patient is being treated with Zosyn, patient will require IV antibiotics was 7 days, today patient is lying in the bed, much more alert and oriented, worked with the PT OT and evaluate the patient and further recommendation to follow, CT scan of abdomen and pelvis showed left kidney mass, discussed with the urologist recommended to repeat CT scan in 6 weeks to further evaluate, if the mass then resolved will need biopsy and further recommendation to follow. 12/10/2021 Interval history: patient with acute mental status change CT scan of the head is negati
[2021-12-12 16:30] LABS: Glucose Point of Care 249 mg/dl (65-105)
[2021-12-12] MEDS: SACCHAROMYCES BOULARDII 250 MG CAPSULE PO (16:36)
[2021-12-12 20:26] LABS: Glucose Point of Care 269 mg/dl (65-105)
[2021-12-13] VITALS (9 sets, daily range): BP systolic 100–131; BP diastolic 54–72; PULSE 71–97; RESP 16–18; TEMP 35.7–36.9; O2SAT 93–99
[2021-12-13] MEDS: FLUTICASONE/SALMETEROL 115-21 MCG INHALER 1 PUFF 2 PUFF INHALATION ×2 (07:21→19:38)
[2021-12-13 07:30] LABS: Glucose Point of Care 277 mg/dl (65-105)
[2021-12-13 07:56] LABS: Hematocrit 30.8 % (37.0-47.0); Hemoglobin 9.9 g/dL (12.0-15.0); Mean Corpuscular HGB Conc 32.1 g/dl (32-36); Mean Corpuscular Hemoglobin 31.3 pg (26-34); Mean Corpuscular Volume 97.5 fl (80-100); Mean Platelet Volume 12.4 fl (7.4-10.4); Platelet Count Result 89 k/mm3 (150-375); Red Blood Count 3.16 M/mm3 (4.2-5.4); Red Cell Distribution Width 15.6 % (11.5-14.5); White Blood Count 13.1 K/mm3 (4.5-10.0)
[2021-12-13] MEDS: INSULIN ASPART (*BKC) 100 UNITS/ML SUB-Q ×3 (08:09→16:39)
[2021-12-13 08:12] LABS: Anion Gap 6 mmol/L (8-16); Blood Urea Nitrogen 37 mg/dL (7-17); Calcium 9.4 mg/dL (8.4-10.2); Carbon Dioxide 24 mmol/L (22-30); Chloride 106 mmol/L (98-107); Estimated CRCL calculation 48 ml/min; Estimated Glomerular Filt Rate 44; Glucose 293 mg/dL (65-110); Sodium 136 mmol/L (137-145)
[2021-12-13] MEDS: methylPREDNISolone SOD SUCC 125 MG VIAL 80 MG IV PUSH ×2 (08:13→20:57)
[2021-12-13] MEDS: valACYclovir HCL 500 MG TABLET 1000 MG PO (08:14)
[2021-12-13] MEDS: buPROPion HCL XL (24 HR) 150 MG TABCR 300 MG PO (08:14)
[2021-12-13] MEDS: METOPROLOL SUCCINATE EXT REL 50 MG TABCR PO (08:15)
[2021-12-13] MEDS: MEMANTINE 10 MG TABLET PO ×2 (08:15→16:39)
[2021-12-13] MEDS: ATORVASTATIN 40 MG TABLET PO (08:16)
[2021-12-13] MEDS: allopurinoL 300 MG TABLET PO (08:16)
[2021-12-13] MEDS: OFLOXACIN 0.3% OPHTH SOLN 5 ML BTL 1 DROP LEFT EYE ×4 (08:17→20:57)
[2021-12-13] MEDS: SILVERGEL (ELTA) 45 ML 1 APPLIC TOPICAL (08:17)
[2021-12-13] MEDS: POLYMYXIN/TRIMETHOPRIM OPHTH 10 ML DROPS 1 DROP EACH EYE ×4 (08:17→20:57)
[2021-12-13] MEDS: SACCHAROMYCES BOULARDII 250 MG CAPSULE PO ×2 (08:17→16:39)
--- NOTE | 2021-12-13 09:33 | P.PNIM_ITS ---
Progress Note: A&P Assessment and Plan (1) Left renal mass: Code(s): N28.89 - Other specified disorders of kidney and ureter Status: Acute (2) Acute UTI: Code(s): N39.0 - Urinary tract infection, site not specified Status: Acute (3) NANCY (acute kidney injury): Code(s): N17.9 - Acute kidney failure, unspecified Status: Acute (4) Sepsis: Qualifiers: Sepsis acute organ dysfunction status: without acute organ dysfunction Sepsis type: sepsis due to unspecified organism Qualified Code(s): A41.9 - Sepsis, unspecified organism Code(s): A41.9 - Sepsis, unspecified organism Status: Acute (5) Bacteremia: Code(s): R78.81 - Bacteremia Status: Acute (6) Persistent atrial fibrillation: Code(s): I48.19 - Other persistent atrial fibrillation Status: Acute (7) Type 2 diabetes mellitus with hyperglycemia: Code(s): E11.65 - Type 2 diabetes mellitus with hyperglycemia Status: Acute (8) Generalized weakness: Code(s): R53.1 - Weakness Status: Acute (9) Delirium: Code(s): R41.0 - Disorientation, unspecified Status: Acute (10) Thrombocytopenia: Code(s): D69.6 - Thrombocytopenia, unspecified Status: Acute (11) Diabetes mellitus: Code(s): E11.9 - Type 2 diabetes mellitus without complications Status: Acute Additional Plan 12/07/2021 Interval history: patient with acute mental status change CT scan of the head is negative for any acute injury however patient does have previous infarct, to further evaluate patient had MRI of the brain did not show any significant change from CT scan of the head, most likely patient's symptoms are stemming from UTI causing urosepsis, as urine has significant leukocytosis patient is being treated with Zosyn will follow-up on urine culture and identification, will have a PT OT evaluate the patient and further recommendation to follow, CT scan of abdomen and pelvis showed left kidney mass will consult urologist further evaluation and management will continue to monitor. 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, to further evaluate patient had MRI of the brain did not show any significant change from CT scan of the head, most likely patient's symptoms are stemming from UTI causing urosepsis, as urine has significant leukocytosis, patient urine culture is growing E coli, patient is being treated with Zosyn will follow-up on urine culture and sensitivity, today patient is sitting in the much more alert and oriented, worked with the PT OT and evaluate the patient and further recommendation to follow, CT scan of abdomen and pelvis showed left kidney mass will consult urologist further evaluation and management will continue to monitor. 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, to further evaluate patient had MRI of the brain did not show any significant change from CT scan of the head, most likely patient's symptoms are stemming from UTI causing urosepsis, as urine has significant leukocytosis, patient urine culture is growing E coli, resistant to multiple antibiotics, sensitive to Zosyn, patient is being treated with Zosyn, patient will require IV antibiotics was 7 days, today patient is lying in the bed, much more alert and oriented, worked with the PT OT and evaluate the patient and further recommendation to follow, CT scan of a
[2021-12-13] MEDS: ERTAPENEM 1 GM/NS 50 ML 1 GM/50 ML BAG IVPB (11:03)
[2021-12-13] MEDS: INSULIN GLARGINE (*BKC) 100 UNITS/ML SUB-Q ×2 (11:03→16:39)
[2021-12-13 11:59] LABS: Glucose Point of Care 270 mg/dl (65-105)
--- NOTE | 2021-12-13 14:02 | PC.NURSE ---
On 12/13/21, the student, [Patti Hendrix], provided care and completed [facility] documentation on this patient. I have reviewed the student's documentation and agree with the findings.
[2021-12-13] MEDS: SALINE LOCK FLUSH 10 ML IV PUSH ×2 (15:28→20:57)
[2021-12-13 16:25] LABS: Glucose Point of Care 280 mg/dl (65-105)
[2021-12-13 20:45] LABS: Glucose Point of Care 277 mg/dl (65-105)
[2021-12-13] MEDS: ACETAMINOPHEN 325 MG TABLET 650 MG PO (22:50)
[2021-12-13 23:07] LABS: Platelet Antibody, Direct IgG NEGATIVE (NEGATIVE)
[2021-12-14 00:26] VITALS: BP 118/53; PULSE 75; RESP 20; TEMP 35.8; O2SAT 96
[2021-12-14 03:39] LABS: Hematocrit 29.4 % (37.0-47.0); Hemoglobin 9.4 g/dL (12.0-15.0); Mean Corpuscular Hemoglobin 31.1 pg (26-34); Mean Corpuscular Volume 97.4 fl (80-100); Mean Platelet Volume 10.6 fl (7.4-10.4); Platelet Count Result 187 k/mm3 (150-375); Red Blood Count 3.02 M/mm3 (4.2-5.4); Red Cell Distribution Width 16.3 % (11.5-14.5); White Blood Count 11.2 K/mm3 (4.5-10.0)
[2021-12-14 03:51] LABS: Anion Gap 3 mmol/L (8-16); Blood Urea Nitrogen 40 mg/dL (7-17); Carbon Dioxide 30 mmol/L (22-30); Chloride 104 mmol/L (98-107); Estimated CRCL calculation 48 ml/min; Estimated Glomerular Filt Rate 44; Glucose 264 mg/dL (65-110); Potassium 3.8 mmol/L (3.4-5.0); Sodium 137 mmol/L (137-145)
[2021-12-14 04:34] VITALS: BP 125/66; PULSE 76; RESP 20; TEMP 36.4; O2SAT 96
[2021-12-14] MEDS: SALINE LOCK FLUSH 10 ML IV PUSH ×2 (06:28→13:08)
[2021-12-14 07:37] LABS: Glucose Point of Care 248 mg/dl (65-105)
[2021-12-14] MEDS: INSULIN GLARGINE (*BKC) 100 UNITS/ML SUB-Q (07:54)
[2021-12-14] MEDS: INSULIN ASPART (*BKC) 100 UNITS/ML SUB-Q (07:55)
[2021-12-14 08:03] VITALS: O2SAT 95
[2021-12-14] MEDS: FLUTICASONE/SALMETEROL 115-21 MCG INHALER 1 PUFF 2 PUFF INHALATION (08:03)
[2021-12-14] MEDS: MEMANTINE 10 MG TABLET PO (08:15)
[2021-12-14] MEDS: allopurinoL 300 MG TABLET PO (08:15)
[2021-12-14] MEDS: valACYclovir HCL 500 MG TABLET 1000 MG PO (08:15)
[2021-12-14 08:16] VITALS: PULSE 76
[2021-12-14] MEDS: METOPROLOL SUCCINATE EXT REL 50 MG TABCR PO (08:16)
[2021-12-14] MEDS: ATORVASTATIN 40 MG TABLET PO (08:16)
[2021-12-14] MEDS: SACCHAROMYCES BOULARDII 250 MG CAPSULE PO (08:16)
[2021-12-14] MEDS: buPROPion HCL XL (24 HR) 150 MG TABCR 300 MG PO (08:17)
[2021-12-14] MEDS: ARTIFICIAL TEARS OPHTH SOLN 15 ML BOTTLE 2 DROP EACH EYE (08:17)
[2021-12-14] MEDS: POLYMYXIN/TRIMETHOPRIM OPHTH 10 ML DROPS 1 DROP EACH EYE ×2 (08:18→13:08)
[2021-12-14] MEDS: methylPREDNISolone SOD SUCC 125 MG VIAL 80 MG IV PUSH (08:18)
[2021-12-14] MEDS: OFLOXACIN 0.3% OPHTH SOLN 5 ML BTL 1 DROP LEFT EYE ×2 (08:18→13:08)
[2021-12-14] MEDS: SILVERGEL (ELTA) 45 ML 1 APPLIC TOPICAL (08:19)
[2021-12-14] MEDS: FLUCONAZOLE 100 MG TABLET PO (09:23)
[2021-12-14] MEDS: glipiZIDE 2.5 MG TABLET PO (09:23)
[2021-12-14 10:00] VITALS: BP 110/60; PULSE 79; RESP 18; TEMP 36.8; O2SAT 98
[2021-12-14] MEDS: ERTAPENEM 1 GM/NS 50 ML 1 GM/50 ML BAG IVPB (10:39)
--- NOTE | 2021-12-14 11:02 | PCOTNOTE ---
Per patient, patient to d/c today. Attempted to see patient for OT, patient declined all interventions. Will continue plan of care if patient does not d/c today.
--- NOTE | 2021-12-14 11:19 | PCPTNOTE ---
Patient refused treatment this session due to anticipated discharge.
[2021-12-14 11:51] LABS: Glucose Point of Care 240 mg/dl (65-105)
--- NOTE | 2021-12-14 13:53 | PC.NURSE ---
On 12/14/21, the student, [John Reynolds], provided care and completed [facility] documentation on this patient. I have reviewed the student's documentation and agree with the findings.
[2021-12-14 14:00] VITALS: BP 120/67; PULSE 79; RESP 18; TEMP 36.2; O2SAT 98
--- NOTE | 2021-12-14 16:17 | PC.NURSE ---
provided glucometer one touch teaching to patient. Family also at bedside during teaching. Instructed patient how to use and then patient returned demonstration. Patient and family stated they were comfortable with monitor. Dietary also came and provided nutrition information.
--- NOTE | 2021-12-14 17:05 | PM.DS ---
DS: Admitting Diagnosis Discharge Date 12/14/21 Admitting Diagnosis (1) Sepsis: Qualifiers: Sepsis acute organ dysfunction status: without acute organ dysfunction Sepsis type: sepsis due to unspecified organism Qualified Code(s): A41.9 - Sepsis, unspecified organism Code(s): A41.9 - Sepsis, unspecified organism Status: Acute Assessment and Plan: Secondary to UTI Early goal directed therapy ongoing. Received Rocephin in the emergency room Started on Zosyn Await cultures Strict output and input (2) Acute UTI: Code(s): N39.0 - Urinary tract infection, site not specified Status: Acute Assessment and Plan: Currently on Zosyn Await urine cultures identification sensitivity Deescalate antibiotics as needed (3) NANCY (acute kidney injury): Code(s): N17.9 - Acute kidney failure, unspecified Status: Acute Assessment and Plan: Likely to be pre renal Continue IV fluids Repeat BMP in a.m. Continue to monitor BUN and creatinine Holding torsemide (4) Persistent atrial fibrillation: Code(s): I48.19 - Other persistent atrial fibrillation Status: Acute Assessment and Plan: On anticoagulation Rate controlled (5) Type 2 diabetes mellitus with hyperglycemia: Code(s): E11.65 - Type 2 diabetes mellitus with hyperglycemia Status: Acute Assessment and Plan: Apparently controlled with diet only as patient on no medications seemingly (6) Generalized weakness: Code(s): R53.1 - Weakness Status: Acute Assessment and Plan: Likely secondary to acute illness PT OT when clinically able (7) Idiopathic chronic gout, unspecified site, without tophus (tophi): Code(s): [id number].[id number] - Idiopathic chronic gout, unspecified site, without tophus (tophi) Status: Acute Assessment and Plan: Continue allopurinol Continue to monitor (8) Delirium: Code(s): R41.0 - Disorientation, unspecified Status: Acute Assessment and Plan: Likely secondary to acute illness. Supportive care CT of the head with no acute abnormalities DS: Discharge Diagnosis Discharge Diagnosis (1) Left renal mass: Code(s): N28.89 - Other specified disorders of kidney and ureter Status: Acute (2) Acute UTI: Code(s): N39.0 - Urinary tract infection, site not specified Status: Acute (3) NANCY (acute kidney injury): Code(s): N17.9 - Acute kidney failure, unspecified Status: Acute (4) Sepsis: Qualifiers: Sepsis acute organ dysfunction status: without acute organ dysfunction Sepsis type: sepsis due to unspecified organism Qualified Code(s): A41.9 - Sepsis, unspecified organism Code(s): A41.9 - Sepsis, unspecified organism Status: Acute (5) Bacteremia: Code(s): R78.81 - Bacteremia Status: Acute (6) Persistent atrial fibrillation: Code(s): I48.19 - Other persistent atrial fibrillation Status: Acute (7) Type 2 diabetes mellitus with hyperglycemia: Code(s): E11.65 - Type 2 diabetes mellitus with hyperglycemia Status: Acute (8) Generalized weakness: Code(s): R53.1 - Weakness Status: Acute (9) Delirium: Code(s): R41.0 - Disorientation, unspecified Status: Acute (10) Thrombocytopenia: Code(s): D69.6 - Thrombocytopenia, unspecified Status: Acute (11) Diabetes mellitus: Code(s): E11.9 - Type 2 diabetes mellitus without complications Status: Acute DS: Summary Hospital Course Reason for hospitalization: Altered mental status Hospital Course: 12/07/2021 Interval history: patient with acute mental status change CT scan of the head is negative for any acute injury however patient does have previous infarct, to further evaluate patient had MRI of the brain did not show any significant change from CT scan of the head, most likely patient's symptoms are stemming from UTI causing urosepsis
== END 2021-12-14 16:25 | disposition home health service (06) | DRG 872 ==
LOC: ANHED 20:55 → ANHIMU 22:19 → ANH2MED 12-07 15:38
PROVIDERS: Family Medicine; Internal Medicine; Internal Medicine Hematology & Oncology; Admitting Provider Internal Medicine; Emergency Provider Family Medicine; PCP Family Medicine; Visit Provider Hospitalist
DX: A41.9 Sepsis, unspecified organism (principal); N39.0 Urinary tract infection, site not specified; N17.9 Acute kidney failure, unspecified; I48.19 Other persistent atrial fibrillation; D69.3 Immune thrombocytopenic purpura; Z16.12 Extended spectrum beta lactamase (ESBL) resistance; E11.65 Type 2 diabetes mellitus with hyperglycemia; R53.1 Weakness; M1A.00X0 Idiopathic chronic gout, unspecified site, without tophus (tophi); R41.0 Disorientation, unspecified; Z87.891 Personal history of nicotine dependence; Z82.49 Family history of ischemic heart disease and other diseases of the circulatory system; Z98.84 Bariatric surgery status; J45.20 Mild intermittent asthma, uncomplicated; E78.5 Hyperlipidemia, unspecified; R04.0 Epistaxis; W19.XXXA Unspecified fall, initial encounter; Z79.4 Long term (current) use of insulin; N28.89 Other specified disorders of kidney and ureter; I10 Essential (primary) hypertension; B96.20 Unspecified Escherichia coli [E. coli] as the cause of diseases classified elsewhere; Z79.899 Other long term (current) drug therapy; Z79.01 Long term (current) use of anticoagulants
CPT/HCPCS: 36415; 36569; 51701; 70450; 70551; 71045; 72125; 72128; 72131; 73030; 73521; 74177; 80048; 80053; 81001; 82274; 82607; 82728; 82746; 82948; 83036; 83540; 83550; 83605; 83690; 83735; 85025; 85027; 85055; 85610; 85730; 86023; 86140; 87040; 87077; 87086; 87088; 87106; 87181; 87186; 93005; 94640; 95816; 96361; 96365; 96366; 96367; 96375; 97110; 97162; 97166; 97530; 97535; 99285; A9270; C1751; C9803; G0378; J0131; J0696; J1335; J1815; J2060; J2543; J2930; J3480; J7030; J7040; Q9967; U0003; U0005

== ENCOUNTER 2021-12-23 09:31 | Emergency (ER) | payer MEDICARE, SELFPAY ==
[2021-12-23 09:36] VITALS: BP 110/77; PULSE 84; RESP 18; TEMP 36.4; O2SAT 99
--- NOTE | 2021-12-23 09:45 | PC.NURSE ---
This RN able to flush midline with 10 ml NS. Good blood return. Dressing is dry and intact. pt has no complaints.
--- NOTE | 2021-12-23 10:33 | ED.GENADULT ---
HPI - General Adult General Chief complaint: Unspecified Stated complaint: midline clotted Time Seen by Provider: 12/23/21 09:50 Source: patient and family Mode of arrival: wheelchair Limitations: no limitations History of Present Illness HPI narrative: This is a 76-year-old female that presents to the emergency department for difficulties with her midline. Patient is currently receiving IV antibiotics at home due to ESBL bacteremia. Her daughter who is a nurse was having difficulty flushing her midline today. Patient currently has no other complaints. Related Data Home Medications Medication Instructions Recorded Confirmed Xarelto 15 mg PO DAILY 11/10/21 12/06/21 artificial tears solution 2 drp OPHTHALMIC (EYE) DAILY 11/10/21 12/06/21 ofloxacin 1 drp LEFT EYE QID 11/10/21 12/06/21 polymyxin B sulf-trimethoprim 1 drp OPHTHALMIC (EYE) QID 11/10/21 12/06/21 valacyclovir [Valtrex] 1,000 mg PO DAILY 11/10/21 12/06/21 Breo Ellipta 1 inh INHALATION DAILY 12/06/21 12/06/21 galantamine 8 mg PO DAILY 12/06/21 12/06/21 Bumanate 5% 1 drp LEFT EYE Q3H 12/07/21 12/07/21 Allergies Allergy/AdvReac Type Severity Reaction Status Date / Time latex Allergy Rash Verified 12/07/21 12:32 Review of Systems Review of Systems: CONSTITUTIONAL: Denies fever SKIN: Denies rash All systems reviewed & are unremarkable except as noted in HPI and below PMFSH Past Medical History Medical History Cognitive decline Congestive heart failure Current use of shelter anticoagulation Essential (primary) hypertension Gout Hyperlipidemia Mild intermittent asthma without complication Persistent atrial fibrillation Type 2 diabetes mellitus without complication, without long-term current use of insulin Surgical History Surgical History History of cataract extraction History of colonoscopy with polypectomy History of gastric bypass History of hysterectomy History of tonsillectomy Family History Family History Mother Hypertension Father Family history of cardiovascular disease Social History Social History Social History: Surrogate decision maker: Veronica Patel, daughter. Code status: Full code. Smoking packs per day: 0.5 Smoking cigarettes per day: 10.0 Years smoked: 20 Smoking pack-years: 10.00 Smoking status: Former smoker Tobacco type: cigarettes Second hand tobacco smoke exposure: No Smoking end date: 09/08/88 Alcohol intake: never Substance use: never Substance use type: does not use Spiritual care concerns: No Exam Narrative: GENERAL: Elderly, well-nourished, and in no acute distress. HEAD: Normocephalic, atraumatic. EYES: EOMI. CHEST: Clear to auscultation. No respiratory distress. No wheezes rales or rhonchi HEART: Irregularly irregular. No murmur heard. Normal peripheral pulses. EXTREMITIES: No erythema or warmth. Midline in place to the left upper arm SKIN: Warm, dry, no rash. NEURO: No focal deficits. Alert and oriented x3. PSYCH: Normal mood and affect Course Vital Signs Vital signs: Vital Signs Temperature 97.5 F L 12/23/21 09:36 Pulse Rate 84 12/23/21 09:36 Respiratory Rate 18 12/23/21 09:36 Blood Pressure 110/77 12/23/21 09:36 Pulse Oximetry 99 12/23/21 09:36 Temperature 97.5 F L 12/23/21 09:36 Pulse Rate 84 12/23/21 09:36 Respiratory Rate 18 12/23/21 09:36 Blood Pressure 110/77 12/23/21 09:36 Pulse Oximetry 99 12/23/21 09:36 Medical Decision Making MDM Narrative Medical decision making narrative: Patient presents to the emergency department for difficulties with her midline. She is currently receiving IV antibiotics at home for ESBL bacteremia. Her daughter who is a nurse was having difficulty flushing the line. We were able to flush the line
[2021-12-23 10:55] VITALS: PULSE 78; RESP 18; O2SAT 98
== END 2021-12-23 10:56 | disposition home or self-care (01) ==
PROVIDERS: Emergency Provider Emergency Medicine; PCP Family Medicine
DX: Z45.2 Encounter for adjustment and management of vascular access device (principal); R78.81 Bacteremia; Z16.12 Extended spectrum beta lactamase (ESBL) resistance; I50.9 Heart failure, unspecified; I11.0 Hypertensive heart disease with heart failure; E78.5 Hyperlipidemia, unspecified; J45.20 Mild intermittent asthma, uncomplicated; I48.19 Other persistent atrial fibrillation; E11.9 Type 2 diabetes mellitus without complications; M10.9 Gout, unspecified; Z79.01 Long term (current) use of anticoagulants; Z98.49 Cataract extraction status, unspecified eye; Z98.84 Bariatric surgery status; Z87.891 Personal history of nicotine dependence; Z79.84 Long term (current) use of oral hypoglycemic drugs
CPT/HCPCS: 99281

== ENCOUNTER 2022-02-05 14:16 | Outpatient (RCR) | payer MEDICARE, SELFPAY | END 2022-05-06 23:59 | disposition home or self-care (01) | LOC: ANHDMC 14:16 | PROVIDERS: PCP Family Medicine; Visit Provider Physician Assistant | DX: E11.9 Type 2 diabetes mellitus without complications (principal); Z71.89 Other specified counseling | CPT/HCPCS: G0108 ==

== ENCOUNTER 2022-04-24 08:53 | Outpatient (CLI) | payer MEDICARE, SELFPAY ==
--- NOTE | ~2022-04-24 | CT_ITS ---
EXAMINATION: CT chest abdomen pelvis w con DATE: 04/24/2022 09:31 INDICATION: Left kidney mass TECHNIQUE: Transaxial computed tomographic images of the chest, abdomen, and pelvis were obtained aft er the administration of 100 cc of Omnipaque 350 intravenous contrast. The dose-length product (DLP) was 1381.33 mGy-cm. Automated exposure control and iterative reconstruction technique were employed. COMPARISON: 12/06/2021 FINDINGS: CHEST CT: There are small pleural effusions. There is no pneumothorax. Rounded atelectasis is again noted in th e lingula and left lower lobe. No acute airspace opacities are identified. Cardiomegaly is noted. The re are no pathologically enlarged thoracic lymph nodes. There is calcified coronary artery atheroscle rosis. A small sliding hiatal hernia is noted. ABDOMEN/PELVIS CT: Surgical changes are noted in the stomach. Cysts of the liver measure up to 9 mm. The spleen, pancrea s, gallbladder, and adrenal glands are normal. The previously described mass of abnormal enhancement in the left kidney is no longer evident. Cysts of the kidneys measure up to 7 mm on the right. There is calcified atherosclerosis of the aorta and many of the other arteries. No pathologically enlarged abdominal or pelvic lymph nodes are identified. There is no free intraperitoneal gas or evidence of b owel obstruction. There is severe lumbar spondylosis at L5-S1. IMPRESSION: 1. Interval resolution of the previously described left kidney mass, most consistent with resolved py elonephritis. 2. Small pleural effusions with areas of rounded atelectasis in the lingula and left lower lobe. Reviewed, dictated and finalized at location A. IMPRESSION: 1. Interval resolution of the previously described left kidney mass, most consi stent with resolved pyelonephritis. 2. Small pleural effusions with areas of rounded atelectasis in the lingula and left lower lobe.
[2022-04-24 09:24] LABS: Estimated Glomerular Filt Rate 44
== END 2022-04-24 08:54 | disposition home or self-care (01) ==
LOC: ANHIMG 08:56
PROVIDERS: PCP Family Medicine; Visit Provider Nurse Practitioner Family
DX: N28.89 Other specified disorders of kidney and ureter (principal); J90 Pleural effusion, not elsewhere classified; I70.0 Atherosclerosis of aorta; N28.1 Cyst of kidney, acquired; M47.816 Spondylosis without myelopathy or radiculopathy, lumbar region
CPT/HCPCS: 71260; 74177; Q9967

== ENCOUNTER 2022-08-22 21:10 | Inpatient (IN) | payer MEDICARE, SELFPAY ==
--- NOTE | ~2022-08-22 | XR_ITS ---
EXAMINATION: XR chest 1V portable DATE: 08/23/2022 02:18 INDICATION: Cough. Weakness. TECHNIQUE: A single frontal view of the chest was obtained. COMPARISON: Chest single view 12/06/2021, CT abdomen and pelvis 08/23/2022 FINDINGS: There is a chronic small left pleural effusion. There are airspace opacities at left lung b ase. No pneumothorax. Cardiomegaly is noted. IMPRESSION: 1. Stable chronic small left pleural effusion. 2. Stable airspace opacities at left lung base, likely rounded atelectasis. Pneumonia cannot be exclu ded. 3. Cardiomegaly. Reviewed, dictated and finalized at location A. H AND TRUEING MACHINE OPERATOR IMPRESSION: 1. Stable chronic small left pleural effusion. 2. Stable airspace opacities at left lung base, likely rounded atelectasis. Pne umonia cannot be excluded. 3. Cardiomegaly.
--- NOTE | ~2022-08-22 | CT_ITS ---
EXAMINATION: CT brain wo con INDICATION: Head injury COMPARISON: 12/06/2021 TECHNIQUE: Standard unenhanced head CT. The dose-length product (DLP) was 605.33 mGy-cm. The mA was a djusted according to patient size. Iterative reconstruction technique was employed. FINDINGS: There is no acute intraparenchymal hemorrhage. No evidence of mass lesion. No evidence of a cute infarction. 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 There is mild pe riventricular and subcortical hypodensity probably related to small vessel ischemic disease. There is mild prominence of the sulci and ventricles related to cerebral atrophy. Intracranial calcified cere bral atherosclerosis is noted. There are no extra-axial collections. There is no mass effect or midli ne shift. Changes in the globes are likely from ocular lens surgery. The visualized sinuses and masto id air cells are well aerated. IMPRESSION: 1. No acute intracranial abnormality. 2. Age related findings. Reviewed, dictated and finalized at location A. S AND SERVICE REPRESENTATIVE
--- NOTE | ~2022-08-22 | CT_ITS ---
EXAMINATION: CT abdomen pelvis wo con DATE: 08/23/2022 05:00 INDICATION: Abdominal pain. Diarrhea. TECHNIQUE: Computed tomography (CT) of the abdomen and pelvis was performed without intravenous contr ast. Automated exposure control and iterative reconstruction technique were employed. The dose-length product was 1261.08 mGy-cm. COMPARISON: CT abdomen and pelvis 04/24/2022 FINDINGS: The visualized portions of the lung bases demonstrate small pleural effusions. There is chr onic pleural thickening on the left. There are chronic airspace opacities in left lower lobe and ling rhina with swirling of the lung parenchyma, consistent with rounded atelectasis. There is mild dependen t atelectasis in right lung. Cardiomegaly is noted. There are coronary artery calcifications. No akhil cardial effusion. There is a small sliding hiatal hernia. There are surgical changes of the stomach. There is a 10 mm cyst in the liver. There are gallstones in the gallbladder, which is normal in size. The spleen, pancreas, and adrenal glands are normal. There is a 9 mm cyst in right kidney. There is cortical thinning of the kidneys. There is a 4 mm stone in right kidney. There is a 3 mm stone in lef t kidney. There are no dilated loops of bowel. There is fat in the wall of ascending colon, likely se condary to obesity. The appendix is not visualized. There are no pathologically enlarged lymph nodes. There is no free intraperitoneal fluid. Body wall edema is noted. There is severe lower lumbar spond ylosis. There is mild thoracic spondylosis. IMPRESSION: 1. Small pleural effusions with chronic pleural thickening on the left. Reviewed, dictated and finalized at location A. ONAL INJURY LITIGATION PARALEGAL
[2022-08-22 21:12] VITALS: BP 123/57; PULSE 79; RESP 18; TEMP 36.4; O2SAT 97
[2022-08-23] VITALS (64 sets, daily range): BP systolic 92–128; BP diastolic 41–104; PULSE 64–86; RESP 12–32; TEMP 35.7; O2SAT 86–100; BMI 33.3
--- NOTE | 2022-08-23 00:56 | ED.FALL ---
HPI - Fall General Chief Complaint: Fall Stated Complaint: ground level fall-denies hitting head Time Seen by Provider: 08/23/22 00:56 Related Data Home Medications Medication Instructions Recorded Confirmed artificial tears solution eye drops 2 drp ophthalmic (eye) DAILY 11/10/21 06/26/22 ofloxacin 0.3 % eye drops 1 drp LEFT EYE QID 11/10/21 06/26/22 polymyxin B sulfate-trimethoprim 1 drp ophthalmic (eye) QID 11/10/21 06/26/22 eye drops rivaroxaban 15 mg tablet (Xarelto) 15 mg PO DAILY 11/10/21 06/26/22 Bumanate 5% 1 drp LEFT EYE Q3H 12/07/21 06/26/22 Allergies Allergy/AdvReac Type Severity Reaction Status Date / Time latex Allergy Rash Verified 06/26/22 14:22 [facility] Past Medical History Medical History Cognitive decline Congestive heart failure 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 Essential (primary) hypertension Gout Hyperlipidemia Mild intermittent asthma without complication Persistent atrial fibrillation Type 2 diabetes mellitus without complication, without long-term current use of insulin Surgical History Surgical History History of cataract extraction History of colonoscopy with polypectomy History of gastric bypass (~01/07/16) History of hysterectomy History of tonsillectomy Family History Family History Mother Hypertension Father Family history of cardiovascular disease Social History Social History Social History: Surrogate decision maker: Veronica Patel, daughter. Code status: Full code. Smoking packs per day: 0.5 Smoking cigarettes per day: 10.0 Years smoked: 20 Smoking pack-years: 10.00 Smoking status: Former smoker Tobacco type: cigarettes Second hand tobacco smoke exposure: No Smoking end date: 09/08/88 Alcohol intake: never Substance use: never Substance use type: does not use Spiritual care concerns: No Course Vital Signs Vital signs: Vital Signs Temperature 36.4 C 08/22/22 21:12 Pulse Rate 79 08/22/22 21:12 Respiratory Rate 18 08/22/22 21:12 Blood Pressure 123/57 L 08/22/22 21:12 Pulse Oximetry 97 08/22/22 21:12 Temperature 36.4 C 08/22/22 21:12 Pulse Rate 79 08/22/22 21:12 Respiratory Rate 18 08/22/22 21:12 Blood Pressure 123/57 L 08/22/22 21:12 Pulse Oximetry 97 08/22/22 21:12 Discharge Plan Discharge Prescriptions: No Action glipizide 2.5 mg tablet extended release 24hr 2.5 mg PO .Daily AM Qty: 90 0RF ofloxacin 0.3 % Drops 1 drp LEFT EYE QID polymyxin B sulf-trimethoprim Drops 1 drp ophthalmic (eye) QID Rx Instructions: left eye Xarelto 15 mg tablet 15 mg PO DAILY artificial tears solution Drops 2 drp OPHTHALMIC (EYE) DAILY Bumanate 5% 5 % drops 1 drp LEFT EYE Q3H Rx Instructions: Q3H WHILE AWAKE (DME) blood-glucose meter Misc See Rx Instructions .Route Qty: 1 0RF Rx Instructions: before breakfast and dinner torsemide 20 mg tablet 20 mg PO QAM Qty: 90 2RF (DME) OneTouch SureSoft Lancing Dev 18 gauge Misc Qty: 120 0RF Rx Instructions: As Directed albuterol sulfate [ProAir HFA] 90 mcg/actuation HFA aerosol inhaler 1 inh INHALATION Q4H PRN (Reason: shortness of breath or wheezing) Qty: 8.5 3RF memantine [Namenda] 10 mg tablet 10 mg PO BID Qty: 180 2RF metoprolol succinate 50 mg tablet extended release 24 hr 50 mg PO DAILY Qty: 90 2RF (DME) OneTouch Verio test strips Strip Qty: 120 8RF Rx Instructions: As Directed atorvastatin [Lipitor] 40 mg tablet 40 mg PO DAILY Qty: 90 1RF bupropion HCl 300 mg tablet extended release 24 hr 300 mg PO QAM Qty: 90 1RF allopurinol 300 mg tablet 300 mg PO DAILY Qty: 90 3RF pota
--- NOTE | 2022-08-23 02:05 | ED.FALL ---
HPI - Fall General Chief Complaint: Fall Stated Complaint: ground level fall-denies hitting head Time Seen by Provider: 08/23/22 00:56 Source: patient Mode of arrival: ambulatory Limitations: no limitations History of Present Illness HPI Narrative: Patient is a 76-year-old female with a history of atrial fibrillation, congestive heart failure, gout, type 2 diabetes, peripheral vascular disease, presenting to the emergency department for evaluation of multiple symptoms. Patient has felt unwell over the past week. She states she has had 3 falls and tonight thinks that she may have hit her head. She denies loss of consciousness. She states that she falls when she tries to ambulate too quickly and ends up tripping. She denies any upper extremity or lower extremity pain. She denies hip pain. Patient states that tonight she has had multiple episodes of watery stool. Denies blood or mucus present. She denies abdominal pain. She denies fever, chills, nausea or vomiting. Patient has been too weak to take care of herself at home. Daughter brought her in for evaluation due to this and the fact that she felt that her mom had worsening confusion. Of note, patient's 99-year-old mother last week. Patient has been having auditory hallucinations since that time. Denies current hallucinations. Patient does have a history of torsemide been changed recently with dosage increased however patient does have chronic kidney disease and her apparently her aircraft tool maker was worried about the repercussions to the kidneys with increasing this. Patient reports chronic umbilical abdominal wound which she itches and scratches often. She also reports bilateral lower extremity wounds for which they follow with wound care. Patient also did recently complete a course of Macrobid for urinary tract infection. Related Data Home Medications Medication Instructions Recorded Confirmed artificial tears solution eye drops 2 drp ophthalmic (eye) DAILY 11/10/21 06/26/22 ofloxacin 0.3 % eye drops 1 drp LEFT EYE QID 11/10/21 06/26/22 polymyxin B sulfate-trimethoprim 1 drp ophthalmic (eye) QID 11/10/21 06/26/22 eye drops rivaroxaban 15 mg tablet (Xarelto) 15 mg PO DAILY 11/10/21 06/26/22 Bumanate 5% 1 drp LEFT EYE Q3H 12/07/21 06/26/22 Allergies Allergy/AdvReac Type Severity Reaction Status Date / Time latex Allergy Rash Verified 06/26/22 14:22 Review of Systems Review of Systems: CONSTITUTIONAL: Denies fever, chills, or sweats. EYES: Denies visual changes, redness, or discharge. ENT: Denies rhinorrhea, congestion, sore throat, or otalgia. CARDIOVASCULAR: Denies chest pain, palpitations, or edema. RESPIRATORY: Reports dry cough, denies shortness of GASTROINTESTINAL: Denies abdominal pain, nausea, vomiting, reports watery diarrhea GENITOURINARY: Denies dysuria or hematuria. SKIN: Denies rash or itching. MUSCULOSKELETAL: Denies back pain, joint pain, or myalgia. 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 Essential (primary) hypertension Gout Hyperlipidemia Mild intermittent asthma without complication Persistent atrial fibrillation Type 2 diabetes mellitus without complication, without long-term current use of insulin Surgical History Surgical History History of cataract extraction History of colonoscopy with polypectomy History of gastric bypass (~01/07/16) History of hysterectomy History of tonsillectomy Family History Family History Mother Hypertension Father Family history of cardiovascular disease Social History Social History Social History: Surrogate decision maker: [facility], [place]
[2022-08-23] MEDS: ONDANSETRON INJ 4 MG/2 ML VIAL IV PUSH (02:46)
[2022-08-23 02:51] LABS: Basophils Absolute Auto 0.1 K/mm3 (0.0-0.1); Basophils Percent Auto 0.6 % (0.2-1.2); Eosinophils Absolute Auto 0.1 K/mm3 (0-0.3); Eosinophils Percent Auto 1.2 % (0-4.4); Hematocrit 37.5 % (37.0-47.0); Hemoglobin 10.4 g/dL (12.0-15.0); Immature Granulocyte Absolute 0.04 K/mm3 (0.00-0.031); Immature Granulocyte Percent A 0.4 % (0-0.5); Lymphocytes Absolute Auto 1.08 K/mm3 (0.9-3.2); Lymphocytes Percent Auto 11.5 % (18.3-44.2); Mean Corpuscular HGB Conc 27.7 g/dl (32-36); Mean Corpuscular Hemoglobin 24.1 pg (26-34); Mean Corpuscular Volume 86.8 fl (80-100); Mean Platelet Volume 9.8 fl (7.4-10.4); Monocytes Absolute Auto 0.7 K/mm3 (0.1-0.6); Monocytes Percent Auto 7.9 % (2.6-8.5); Neutrophils Absolute Auto 7.4 K/mm3 (1.3-6.7); Neutrophils Percent Auto 78.4 % (45.5-73.1); Platelet Count Result 283 k/mm3 (150-375); Red Blood Count 4.32 M/mm3 (4.2-5.4); Red Cell Distribution Width 19.9 % (11.5-14.5); White Blood Count 9.4 K/mm3 (4.5-10.0)
[2022-08-23 03:04] LABS: INR 2.4; Prothrombin Time 25.5 Seconds (11.1-14.7)
[2022-08-23 03:05] LABS: Partial Thromboplastin Time 40.9 SECONDS (22.3-36.8)
[2022-08-23 03:07] LABS: Add Urine Microscopic? YES; Appearance Urine Clear (Clear); Bilirubin Urine Negative (Negative); Blood Urine Trace-Intact (Negative); Color Urine Light Yellow (Yellow); Glucose Urine UA Negative (Negative); Ketones Urine Negative (Negative); Leukocyte Esterase Ur 2+ LEU/UL (Negative); Nitrate Urine Positive (Negative); Protein Urine Trace mg/dL (Negative); Specific Grav Ur 1.015 (1.001-1.035)
[2022-08-23 03:18] LABS: Lactic Acid Reflex 1.6 mmol/L (0.7-2.0)
[2022-08-23 03:41] LABS: Troponin I 0.056 ng/mL (0.000-0.034)
[2022-08-23 03:43] LABS: Alanine Aminotransferase 22 U/L (6-35); Albumin Level 3.4 g/dL (3.5-5.1); Alkaline Phosphatase 130 U/L (38-126); Anion Gap 4 mmol/L (8-16); Aspartate Amino Transferase 37 U/L (14-36); Bilirubin,Total 0.9 mg/dL (0.2-1.3); Blood Urea Nitrogen 26 mg/dL (7-17); Calcium 8.9 mg/dL (8.4-10.2); Carbon Dioxide 39 mmol/L (22-30); Chloride 103 mmol/L (98-107); Estimated Glomerular Filt Rate 40; Glucose 75 mg/dL (65-110); Sodium 146 mmol/L (137-145)
[2022-08-23 03:44] LABS: Alveolar/Arterial O2 Gradient 26.9 mmHg; Base Excess ABG 10.1 mEq/l (+/-2.0); Carboxyhemoglobin 1.7 % THb (0-2.0); Fractional Inspired Oxygen 36 %; HCO3 ABG 36.2 mEq/l (22.0-26.0); Methemoglobin ABG 0.3 %THb (0-1.5); Oxygen Content ABG 15.6 %vol (16.0-22.0); Oxygen Saturation ABG 99.1 % (95.0-100.0); PCO2 ABG 56.5 mmHg (35.0-45.0); PO2 ABG 164.2 mmHg (80.0-100.0); PO2 FiO2 Ratio Arterial Blood 4.56 %; Total Hemoglobin 11.3 g/dL (12.0-18.0); pH ABG 7.425 (7.350-7.450)
[2022-08-23 03:45] LABS: Device NASAL CANNULA; Modified Allen's Test Pass; Site Drawn RIGHT RADIAL
[2022-08-23 03:46] LABS: Influenza A QL RT-PCR Negative (Negative); Influenza B QL RT-PCR Negative (Negative); RSV RNA, RT-PCR Negative (Negative); SARS-CoV-2 RNA PCR Negative
[2022-08-23 03:57] LABS: NT Pro B Type Natriuretic Pept 18300 pg/mL (5-100)
[2022-08-23] MEDS: FUROSEMIDE INJ 40 MG/4 ML VIAL 20 MG IV PUSH (05:36)
[2022-08-23] MEDS: SODIUM CHLORIDE 0.9% IV 500 ML 999 ML IV CONT (05:36)
[2022-08-23] MEDS: POTASSIUM CHLORIDE 20 MEQ PACKET (FOR LIQUID) 40 MEQ PO (05:39)
--- NOTE | 2022-08-23 07:12 | PC.NURSE ---
Report given to STAR Carmichael at this time.
[2022-08-23 07:53] LABS: Base Excess ABG 8.1 mEq/l (+/-2.0); Fractional Inspired Oxygen 28 %; HCO3 ABG 34.2 mEq/l (22.0-26.0); Methemoglobin ABG 0.1 %THb (0-1.5); Oxygen Content ABG 15.3 %vol (16.0-22.0); Oxygen Saturation ABG 98.8 % (95.0-100.0); Oxyhemoglobin 96.8 % THb (90.0-100.0); PCO2 ABG 55.9 mmHg (35.0-45.0); PO2 ABG 144.2 mmHg (80.0-100.0); PO2 FiO2 Ratio Arterial Blood 5.15 %; Reduced Hemoglobin 2.1 %THb (0-5.0); pH ABG 7.405 (7.350-7.450)
[2022-08-23 07:54] LABS: Device NASAL CANNULA; Modified Allen's Test Pass; Site Drawn RIGHT RADIAL
[2022-08-23 08:05] LABS: Troponin I 0.053 ng/mL (0.000-0.034)
--- NOTE | 2022-08-23 08:31 | PC.NURSE ---
heart healthy diet tray ordered
[2022-08-23] MEDS: VANCOMYCIN HCL 500 MG in DEXTROSE 5% 100 ML 100 MG IVPB (09:30)
--- NOTE | 2022-08-23 10:45 | PM.IMHP ---
H&P: HPI History of Present Illness Date/Time: 08/23/22 10:45 Chief Complaint: Recurrent falls not feeling well Narrative: This is a 76-year-old female who presents to the ED with feeling unwell and having recurrent falls. She denies any obvious symptoms. She has been having loose stools she states twice a day. She had similar episode in the past. She is generally feeling week over the past week or so. She denies any obvious shortness of breath or chest pain she denies any cough. She reports mild swelling in the legs. She does have history of congestive heart failure. She has had 3 falls over the past week. She denies any blood in stool. No fever chills. No abdominal pain. She has also been having hallucinations reported in the medical chart. Recently had her torsemide does changed. Recently completed course of Macrobid for urinary tract infection as well. Review of Systems Review of Systems: - CONSTITUTIONAL: Denies weight loss, fever and chills. - HEENT: Denies changes in vision and hearing - RESPIRATORY: Denies SOB and cough. - CV: Denies palpitations and CP. - GI: Denies abdominal pain, nausea, vomiting and diarrhea. - : Denies dysuria and urinary frequency. - MSK: Denies myalgia and joint pain. - SKIN: Denies rash and pruritus. - NEUROLOGICAL: Denies headache and syncope. Reports generalized weakness - PSYCHIATRIC: Denies recent changes in mood. Denies anxiety and depression. 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 Essential (primary) hypertension Gout Hyperlipidemia Mild intermittent asthma without complication Persistent atrial fibrillation Type 2 diabetes mellitus without complication, without long-term current use of insulin Surgical History Surgical History History of cataract extraction History of colonoscopy with polypectomy History of gastric bypass (~01/07/16) History of hysterectomy History of tonsillectomy Family History Family History Mother Hypertension Father Family history of cardiovascular disease Social History Social History Social History: Surrogate decision maker: Veronica Patel, daughter. Code status: Full code. Smoking packs per day: 0.5 Smoking cigarettes per day: 10.0 Years smoked: 20 Smoking pack-years: 10.00 Smoking status: Former smoker Tobacco type: cigarettes Second hand tobacco smoke exposure: No Smoking end date: 09/08/88 Alcohol intake: never Substance use: never Substance use type: does not use Lack of Transportation: No Lack of Food: Sometimes True Current Housing: I Have Housing Concerned About Future Housing: No Difficulty Paying Gas/Electric Bills: No Difficulty Paying for Meds: YES Currently Unemployed: No Education: High School Diploma/GED Difficulty w/ Childcare or Family Care: No Spiritual care concerns: No Meds Home Medications and Allergies Home Medications Medication Instructions Recorded Confirmed Type albuterol sulfate 90 mcg/actuation 1 inh inhalation Q4H PRN shortness 07/07/20 06/26/22 Rx aerosol inhaler (ProAir HFA) of breath or wheezing #8.5 grams artificial tears solution eye drops 2 drp ophthalmic (eye) DAILY 11/10/21 06/26/22 History ofloxacin 0.3 % eye drops 1 drp LEFT EYE QID 11/10/21 06/26/22 History polymyxin B sulfate-trimethoprim 1 drp ophthalmic (eye) QID 11/10/21 06/26/22 History eye drops rivaroxaban 15 mg tablet (Xarelto) 15 mg PO DAILY 11/10/21 06/26/22 History Bumanate 5% 1 drp LEFT EYE Q3H 12/07/21 06/26/22 History blood-glucose meter #1 ea 12/14/21 06/26/22 Rx lancets 18 gauge (OneTouch #120 ea 12/14/21 06/26/22 Rx SureSoft Lancing Devices) tor
[2022-08-23 11:11] LABS: Troponin I 0.049 ng/mL (0.000-0.034)
--- NOTE | 2022-08-23 11:31 | PC.NURSE ---
heart healthy diet lunch tray ordered
[2022-08-23] MEDS: buPROPion HCL XL (24 HR) 150 MG TABCR 300 MG PO (12:58)
[2022-08-23] MEDS: METOPROLOL SUCCINATE EXT REL 50 MG TABCR PO (12:58)
[2022-08-23] MEDS: allopurinoL 300 MG TABLET PO (12:59)
[2022-08-23] MEDS: ATORVASTATIN 40 MG TABLET PO (12:59)
--- NOTE | 2022-08-23 14:10 | PM.CNCAR ---
Assessment and Plan Assessment and plan (1) Persistent atrial fibrillation: Code(s): I48.19 - Other persistent atrial fibrillation Status: Acute Plan This is a 76-year-old lady with chronic atrial fibrillation and a history of diastolic noncompliance presenting to the hospital with symptoms of confusion and frequent falling. I do not believe these are cardiac issues. Regarding her congestive heart failure she has a few rales on physical exam but is not coming into the hospital primarily with complaints of dyspnea and fluid overload other than this by physical exam she appears to be essentially euvolemic. At this time I would continue her baseline medications which are metoprolol 100 mg daily, torsemide 20 mg daily and Xarelto 15 mg daily. I do not believe that her principal reason for coming to the hospital is cardiac in nature. We will follow her with you while she is in the hospital but at this time I do not see the indication or necessity to lunch and additional cardiac workup at this time. Osvaldo Morales MD [facility] ( for Jagdeep) History of Present Illness History of Present Illness Consult date/time: 08/23/22 14:10 Reason For Visit: Acute CHF Exacerbation,UTI,Hypoxic Resp Failure Narrative: This is a 76-year-old woman who I have not seen previously she is well-known however to my partner Dr. Gannon and has a diagnosis of chronic atrial fibrillation and diastolic noncompliance. She was brought to the hospital by her family yesterday with the principal complaints of worsening mental status/increasing confusion and frequent falling. The daughter who is with her in the room is a registered nurse who provides an excellent history the patient is responsive and answers questions appropriately but is not entirely coherent. The daughter states she was not experiencing symptoms of air hunger complaining of shortness of breath or in regard increasing lower extremity edema. She was concerned that her baseline dementia was worse because of the stress of her mother's last week. She then also has had several falls at home where she attributes this to tripping on things she is supposed to use a walker but commonly does not and has tripping and falling. She is not experiencing syncopal episodes as far as they can tell. On evaluation in the emergency room she has some small amount of left pleural fluid on chest x-ray and an elevated at her Ag peptide level at 18,300 and was therefore given the diagnosis of heart failure been asked to see her consultation. When I entered the room to see her she was sleeping flat in bed breathing room air in obviously not in any respiratory distress. Upon awakening she does not voice any cardiovascular complaints. The daughter states she has chronic atrial fibrillation managed with rate control and anticoagulation. She did see my partner recently on 07/22/2022 in the office. There was concern that she was tachycardic and her metoprolol dosage was increased to 100 mg daily. There was also the decision to increase her torsemide dosage for 2 weeks from 20-40 mg and then go back to the 20 mg baseline. The patient is known to have preserved left ventricular systolic function I believe her last echocardiogram that I see in the chart was in November of this year with an EF of 70%. She is not known to have any coronary artery disease. Review of Systems Review of Systems: ROS unobtainable: Yes unobtainable due to mental status PMFSH Past Medical History Medical History Cognitive decline Congestive heart failure Current use of assisted anticoagulation Essential (primary) hypertension Gout Hyperlipidemia Mild intermittent asthma without complication Persistent atrial fibrillation Type 2 diabetes mellitus without complication, without long-term current use of insulin Surgical History Surgical History (Reviewed 08/23/22 @ 02:08 by Dodie Royal,
[2022-08-23 16:08] LABS: Add Urine Microscopic? YES; Appearance Urine Clear (Clear); Bilirubin Urine Negative (Negative); Blood Urine 1+ (Negative); Color Urine Light Yellow (Yellow); Glucose Urine UA Negative (Negative); Ketones Urine Negative (Negative); Leukocyte Esterase Ur 3+ LEU/UL (NEGATIVE); Nitrate Urine Positive (Negative); Protein Urine Trace mg/dL (Negative)
[2022-08-23 16:11] LABS: Mucus Urine Rare /lpf; WBC Clumps Urine Present /HPF; WBC Urine >75 /hpf (0-3)
--- NOTE | 2022-08-23 16:54 | PC.NURSE ---
heart healthy diet dinner tray ordered
[2022-08-23] MEDS: RIVAROXABAN 15 MG TABLET PO (17:47)
--- NOTE | 2022-08-23 19:48 | PC.NURSE ---
ozzie caldera to downgrade to [place].
--- NOTE | 2022-08-23 21:45 | ADMGEN ---
This patient, Dodie Duong, was admitted to Medical Room 348-. Patient/family oriented to hospital policies and general routines including ID bracelet, bed and alarms, visiting hours, pain management, procedures, bathroom and other care routines, personal items, smoking policy, room service/diet, and visiting hours. Information on how to activate the Rapid Response Team has been discussed. Patient/Family are encouraged to report perceived risks to care and to ask questions if they do not understand what they are told or what they should do.
[2022-08-23 22:15] LABS: Hemoglobin A1C 7.4 % (<5.7)
[2022-08-23] MEDS: MEMANTINE 10 MG TABLET PO (22:29)
[2022-08-24] VITALS: PULSE 77
[2022-08-24 00:29] LABS: Glucose Point of Care 146 mg/dl (65-105)
[2022-08-24 01:11] VITALS: PULSE 84; RESP 18; O2SAT 98
[2022-08-24] MEDS: TOLNAFTATE 1% POWDER 45 GM BTL 1 APPLIC TOPICAL (02:26)
[2022-08-24 04:00] VITALS: BP 100/53; PULSE 77; PULSE 87; RESP 16; TEMP 36.1; O2SAT 96
[2022-08-24 05:41] LABS: Basophils Absolute Auto 0.1 K/mm3 (0.0-0.1); Basophils Percent Auto 0.7 % (0.2-1.2); Eosinophils Absolute Auto 0.2 K/mm3 (0-0.3); Eosinophils Percent Auto 1.5 % (0-4.4); Hematocrit 37.3 % (37.0-47.0); Hemoglobin 10.1 g/dL (12.0-15.0); Immature Granulocyte Absolute 0.06 K/mm3 (0.00-0.031); Immature Granulocyte Percent A 0.6 % (0-0.5); Lymphocytes Absolute Auto 0.75 K/mm3 (0.9-3.2); Mean Corpuscular HGB Conc 27.1 g/dl (32-36); Mean Corpuscular Hemoglobin 24.2 pg (26-34); Mean Corpuscular Volume 89.4 fl (80-100); Mean Platelet Volume 9.6 fl (7.4-10.4); Monocytes Absolute Auto 0.8 K/mm3 (0.1-0.6); Monocytes Percent Auto 7.3 % (2.6-8.5); Neutrophils Absolute Auto 8.9 K/mm3 (1.3-6.7); Neutrophils Percent Auto 82.9 % (45.5-73.1); Platelet Count Result 271 k/mm3 (150-375); Red Blood Count 4.17 M/mm3 (4.2-5.4); Red Cell Distribution Width 19.3 % (11.5-14.5); White Blood Count 10.7 K/mm3 (4.5-10.0)
[2022-08-24 05:50] LABS: Anion Gap 5 mmol/L (8-16); Blood Urea Nitrogen 22 mg/dL (7-17); Calcium 8.9 mg/dL (8.4-10.2); Carbon Dioxide 37 mmol/L (22-30); Chloride 102 mmol/L (98-107); Estimated CRCL calculation 41 ml/min; Estimated Glomerular Filt Rate 40; Glucose 168 mg/dL (65-110); Magnesium 2.2 mg/dL (1.6-2.3); Potassium 3.5 mmol/L (3.4-5.0); Sodium 144 mmol/L (137-145)
[2022-08-24 07:12] LABS: Anisocytosis 2+ (NORMAL); Ovalocytes 1+ (NORMAL); Platelet Estimate Adequate (Adequate)
[2022-08-24 07:13] LABS: Schistocytes None Seen (NORMAL)
[2022-08-24 07:45] VITALS: O2SAT 96
--- NOTE | 2022-08-24 08:53 | PC.NURSE ---
Superintendent [employer] called daughter Veronica to confirm patients home medications.
[2022-08-24 09:26] LABS: Glucose Point of Care 166 mg/dl (65-105)
--- NOTE | 2022-08-24 10:18 | PM.IMPN ---
Progress Note: A&P Assessment and Plan (1) Generalized weakness: Code(s): R53.1 - Weakness Status: Acute (2) Loculated pleural effusion: Code(s): J90 - Pleural effusion, not elsewhere classified Status: Acute (3) Acute respiratory failure with hypoxia and hypercarbia: Code(s): J96.01 - Acute respiratory failure with hypoxia; J96.02 - Acute respiratory failure with hypercapnia Status: Acute (4) Acute UTI: Code(s): N39.0 - Urinary tract infection, site not specified Status: Acute (5) Idiopathic chronic gout, unspecified site, without tophus (tophi): Code(s): M1A.00X0 - Idiopathic chronic gout, unspecified site, without tophus (tophi) Status: Acute (6) Diarrhea: Code(s): R19.7 - Diarrhea, unspecified Status: Acute (7) Confusion: Code(s): R41.0 - Disorientation, unspecified Status: Acute Time Spent With Patient Time with patient: 25 - 35 minutes Subjective Date/time seen: 08/24/22 10:18 Interval history: Pt is a Review of Systems Review of Systems: All systems reviewed & are unremarkable except as noted in HPI and below Exam Narrative: General: Well developed well nourished patient in NAD HEENT: normocephalic Neck: supple Neuro: Alert and oriented x CV:RRR Resp:CTA Abd: Soft, non distended. No pain to palpation. Positive bowel sounds Extremities: No swelling, erythema, or pain to palpation. Objective Data Vital Signs Vital Signs: Vital Signs - 24 hr 08/23/22 12:58 08/23/22 13:02 08/23/22 13:09 Temperature Pulse Rate 73 70 Respiratory Rate 12 Blood Pressure 100/55 L 110/60 Pulse Oximetry 98 Oxygen Delivery Oxygen Flow Rate 08/23/22 17:53 08/23/22 10:30 08/23/22 10:45 Temperature Pulse Rate 80 74 73 Respiratory Rate 12 Blood Pressure 103/47 L Pulse Oximetry 98 100 100 Oxygen Delivery Oxygen Flow Rate 08/23/22 11:00 08/23/22 11:15 08/23/22 11:33 Temperature Pulse Rate 68 74 67 Respiratory Rate Blood Pressure Pulse Oximetry Oxygen Delivery Oxygen Flow Rate 08/23/22 12:12 08/23/22 12:30 08/23/22 13:00 Temperature Pulse Rate 70 77 71 Respiratory Rate Blood Pressure Pulse Oximetry Oxygen Delivery Oxygen Flow Rate 08/23/22 13:01 08/23/22 13:02 08/23/22 13:04 Temperature Pulse Rate 69 74 70 Respiratory Rate Blood Pressure 98/55 L 100/55 L 96/48 L Pulse Oximetry Oxygen Delivery Oxygen Flow Rate 08/23/22 13:09 08/23/22 13:28 08/23/22 14:01 Temperature Pulse Rate 71 73 71 Respiratory Rate Blood Pressure 106/41 L 96/71 L Pulse Oximetry Oxygen Delivery Oxygen Flow Rate 08/23/22 14:05 08/23/22 14:15 08/23/22 14:30 Temperature Pulse Rate 73 75 75 Respiratory Rate Blood Pressure Pulse Oximetry 100 99 99 Oxygen Delivery Oxygen Flow Rate 08/23/22 14:50 08/23/22 15:07 08/23/22 15:37 Temperature Pulse Rate 67 75 71 Respiratory Rate Blood Pressure Pulse Oximetry 86 L Oxygen Delivery Oxygen Flow Rate 08/23/22 16:04 08/23/22 16:15 08/23/22 16:31 Temperature Pulse Rate 78 74 75 Respiratory Rate Blood Pressure Pulse Oximetry Oxygen Delivery Oxygen Flow Rate 08/23/22 17:48 08/23/22 17:54 08/23/22 18:01 Temperature Pulse Rate 79 Respiratory Rate Blood Pressure 92/42 L 93/46 L Pulse Oximetry Oxygen Delivery Oxygen Flow Rate 08/23/22 22:00 08/24/22 01:11 08/24/22 00:00 Temperature 96.3 F L Pulse Rate 84 84 77 Respiratory Rate 18 18 Blood Pressure 124/73 Pulse Oximetry 98 98 Oxygen Delivery Nasal Cannula Oxygen Flow Rate 2 08/24/22 04:00 08/24/22 04:00 Temperature 96.9 F L Pulse Rate 77 87 Respiratory Rate 16 Blood Pressure 100/53 L Pulse Oximetry 96 Oxygen Delivery Oxygen Flow Rate Intake/Output Intake/Output: Intake & Output 08/21/22 08/22/22 1
[2022-08-24 11:00] LABS: Glucose Point of Care 162 mg/dl (65-105)
--- NOTE | 2022-08-24 15:07 | P.DN_ITS ---
Discharge Summary Date and Time Date of : 08/24/22 Time of : 10:54 Provider Pronounced By: Dr Wong Probable Cause of Probable Cause of : Cardiac arrest Summary Hospital Course: Patient is a 76-year-old female with a past medical history of AFib, CHF, and type 2 diabetes who presented to the emergency room for recurrent falls, diarrhea and overall feeling unwell. She was admitted to the hospitalist service and started on antibiotics for possible UTI and was seen by Cardiology for CHF as her troponins were mildly elevated but stable. She was evaluated by myself prior to the code and stated she was doing okay but was tired. After leaving her room about 20 minutes later a code blue was called. The nurse states that she was drinking water when she choked and spit the water out. She was breathing okay after that but as she was coughing telemetry noted her heart rate started decreasing and eventually ceased. CPR was started and the code was activated. Patient unfortunately did not have IV access and IO was placed. Glucose greater than 100. auditor internal showed PEA-no shockable rhythm. Multiple rounds of epinephrine, bicarb and CPR was performed. After about 20 minutes I called her daughter and discussed plan of care. She stated that we should try a couple more times but understood that the chances of getting ROSC was low. We did, however, achieve ROSC for a few minutes which resulted in bradycardia. Multiple doses of atropine were given but her heart rate did not improve. She had another cardiac arrest and CPR and medications were give with no success. Time of was called at 10:54. I spoke with the family ( and daughters) about the event and gave my condolences. All questions were answered. 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
--- NOTE | 2022-08-24 16:20 | PDCODEBLUE ---
Code Blue Note Code Blue Note Time Arrived at Code Blue: 10: 20 am Initial Rhythm on Arrival: PEA arrest Airway Management: Pt intubated during resuscitation Chest Compressions: In process on arrival to bedside Result of Code Blue: Pt Code Blue Summary: patient choked prior to the event. went bradycardic when she beacme unresponsive and tiffani beltrán was called. CPR started and continued per ACLS code protocol. She remained on PEA arrest throughout the course with multiple rounds of epinephrine, bicarb. Approximately at 20 mins of CPR, she had a ROSC however shortly after she went into PEA arrest again and CPR was resumed. Despite all resuscitative measures, ROSC was not achieved. At 10: 54 am, with more than 30 mins of resuscitative efforts, this was stopped. Patient was pronounced at [address] Jnekins blood bank laboratory technician also present along with and Tika, primary provider of the patient. Tika updated family regarding the events. CCT: 35 mins
== END 2022-08-24 10:54 | disposition expired | DRG 291 ==
LOC: ANHED 08-23 04:36 → ANHIMU 08-23 06:47 → ANH3MED 08-23 20:54 → ANHIMU 08-26 08:46
PROVIDERS: Internal Medicine; Admitting Provider Internal Medicine; Emergency Provider Emergency Medicine; PCP Family Medicine; Visit Provider Physician Assistant
DX: I13.0 Hypertensive heart and chronic kidney disease with heart failure and stage 1 through stage 4 chronic kidney disease, or unspecified chronic kidney disease (principal); J96.01 Acute respiratory failure with hypoxia; J96.02 Acute respiratory failure with hypercapnia; I48.19 Other persistent atrial fibrillation; N39.0 Urinary tract infection, site not specified; I50.9 Heart failure, unspecified; N18.9 Chronic kidney disease, unspecified; I46.9 Cardiac arrest, cause unspecified; R00.1 Bradycardia, unspecified; E87.6 Hypokalemia; E11.51 Type 2 diabetes mellitus with diabetic peripheral angiopathy without gangrene; E11.22 Type 2 diabetes mellitus with diabetic chronic kidney disease; E78.5 Hyperlipidemia, unspecified; K52.9 Noninfective gastroenteritis and colitis, unspecified; R29.6 Repeated falls; M10.9 Gout, unspecified; Z20.822 Contact with and (suspected) exposure to COVID-19; Z79.01 Long term (current) use of anticoagulants; Z87.891 Personal history of nicotine dependence; Z98.84 Bariatric surgery status
CPT/HCPCS: 36415; 36600; 70450; 71045; 74176; 80048; 80053; 81001; 82375; 82805; 82948; 83036; 83050; 83605; 83735; 83880; 84484; 85025; 85610; 85730; 87086; 87637; 92950; 96374; 99285; A9270; J0171; J0456; J0461; J0692; J0696; J1940; J2405; J3370; J7040